=== PATIENT | male | born 1960 | race Caucasian/White ===

== ENCOUNTER 2018-01-05 18:26 | Inpatient (IN) | payer OTHER ==
[2018-01-05] MEDS ORDERED: HYDROmorphone 0.5 MG/0.5 ML SYRINGE IVP STA (18:41)
[2018-01-05] MEDS ORDERED: ONDANSETRON 4 MG/2 ML VIAL IVP STA (18:41)
[2018-01-05] MEDS ORDERED: SODIUM CHLORIDE 0.9% 1,000 ML IV STA (18:41)
[2018-01-05] MEDS ORDERED: RX INFO: IV CONTRAST WAS GIVEN 1 EACH MISC MISCELLANE PRN (18:41)
[2018-01-05] MEDS ORDERED: ACETAMINOPHEN TAB 500 MG TAB PO STA (18:43)
--- NOTE | 2018-01-05 18:48 | ED ---
Abdominal Pain HPI - General Chief Complaint: Abdominal Pain Stated Complaint: ABDOMINAL PAIN Time Seen by Provider: 01/05/18 18:33 Source: patient, RN notes reviewed, old records reviewed Mode of arrival: ambulatory Limitations: no limitations - History of Present Illness Initial Comments: This is a 57-year-old male presents emergency Department chief complaint of epigastric abdominal pain for the past 2 days. Patient ports is a history of IBS was started on Viberzi by his primary care doctor a few weeks ago. He reports he's not had much diarrhea since starting this medicine. States he's had nausea and has had episodes of vomiting. He had a fever last night of 103. Patient's had a fever and his been dosing Motrin. Patient last had Motrin a few hours ago. Patient has had no previous abdominal surgeries. He's had no previous colonoscopies. 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 Patient reports whenever he has a fever he feels like his heart skips a beat. He reports it's been going on for the past day. - Related Data Home Medications Medication Instructions Recorded Confirmed Citalopram Hydrobromide 10 mg PO HS 01/05/18 01/05/18 [Citalopram HBr] Citalopram Hydrobromide 20 mg PO DAILY 01/05/18 01/05/18 [Citalopram HBr] Eluxadoline [Viberzi] 75 mg PO BID 01/05/18 01/05/18 Ibuprofen [Motrin] 800 mg PO TID PRN 01/05/18 01/05/18 Allergies Allergy/AdvReac Type Severity Reaction Status Date / Time Penicillins Allergy Swelling Verified 01/05/18 18:47 Review of Systems ROS Statement: Those systems with pertinent positive or pertinent negative responses have been documented in the HPI. ROS Other: All systems not noted in ROS Statement are negative. Past Medical History Additional Past Medical History / Comment(s): IBS, skin cancer History of Any Multi-Drug Resistant Organisms: None Reported Additional Past Surgical History / Comment(s): Skin cancer removal Past Psychological History: Depression Smoking Status: Never smoker Past Alcohol Use History: None Reported Past Drug Use History: None Reported General Exam - General Exam Comments Initial Comments: This is a 57-year-old male. He appears somewhat pale. Limitations: no limitations General appearance: alert, in no apparent distress Head exam: Present: atraumatic, normocephalic, normal inspection Eye exam: Present: normal appearance, PERRL, EOMI. Absent: scleral icterus, conjunctival injection, periorbital swelling ENT exam: Present: normal exam, mucous membranes moist Neck exam: Present: normal inspection. Absent: tenderness, meningismus, lymphadenopathy Respiratory exam: Present: normal lung sounds bilaterally. Absent: respiratory distress, wheezes, rales, rhonchi, stridor Cardiovascular Exam: Present: regular rate, normal rhythm, normal heart sounds. Absent: systolic murmur, diastolic murmur, rubs, gallop, clicks GI/Abdominal exam: Present: soft, tenderness (Patient has significant epigastric tenderness.), normal bowel sounds. Absent: distended, guarding, rebound, rigid Extremities exam: Present: normal inspection, full ROM, normal capillary refill. Absent: tenderness, pedal edema, joint swelling, calf tenderness Back exam: Present: normal inspection Neurological exam: Present: alert, oriented X3, CN II-XII intact Psychiatric exam: Present: normal affect, normal mood Skin exam: Present: warm, dry, intact, normal color. Absent: rash Course Vital Signs 01/05/18 01/05/18 18:27 19:03 Temperature 99.7 F H Pulse Rate 64 108 H Respiratory 18 18 Rate Blood Pressure 118/60 96/55 O2 Sat by Pulse 96 94 L Oximetry Medical Decision Making - Medical Decision Making This patient is a 57-year-old male presents emergency Department chief complaint of epigastric abdominal pain for the past few days. Has history of IBS and has been on multiple medications to help stop dairy. He has been somewhat better but past 2 days. Patient states that he's had no known bloody diarrhea. He does arrive to emergency department with a low-grade fever 99.7. Patient reports that he does have fevers heart does occasionally skip a beat. He does have noted PVCs on his EKG. Patient's lab work is reviewed as follows, white blood cell count 12.7. RBCs 3.26. Hemoglobin 9.4. Platelets at 68. BUN 19 creatinine 1.72. AST is 15 ALT 22 negative cardiac workup. Amylase 116 lipase 451. He does have a stool occult positive. At this time to patient for likely GI bleed with Protonix. He also has evidence of mild pancreatitis. Patient will be remaining nothing by mouth. Also some signs of enteritis. He did have a single gallstone noted within the gallbladder on his CAT scan. He has no elevated transaminases. I discussed with Dr. Fonseca, suggested holding off an ultrasound at this time without evidence of any biliary obstruction on CAT scan. I discussed all the findings with the family. Patient agrees to admission for GI bleed pancreatitis and enteritis. Discussed with Dr. Fonseca we'll discuss this with the admitting physician. We will consult GI. - Lab Data Result diagrams: 01/05/18 18:48 01/05/18 18:48 Lab Results 01/05/18 01/05/18 01/05/18 Range/Units 18:48 18:48 18:48 WBC 12.7 H (3.8-10.6) k/uL RBC 3.26 L (4.30-5.90) m/uL Hgb 9.4 L (13.0-17.5) gm/dL Hct 28.7 L (39.0-53.0) % MCV 88.2 (80.0-100.0) fL MCH 28.7 (25.0-35.0) pg MCHC 32.6 (31.0-37.0) g/dL RDW 17.5 H (11.5-15.5) % Plt Count 68 L (150-450) k/uL Neutrophils % (Manual) 42 % Lymphocytes % (Manual) 15 % Monocytes % (Manual) 42 % Eosinophils % (Manual) 1 % Neutrophils # (Manual) 5.33 (1.3-7.7) k/uL Lymphocytes # (Manual) 1.91 (1.0-4.8) k/uL Monocytes # (Manual) 5.33 H (0-1.0) k/uL Eosinophils # (Manual) 0.13 (0-0.7) k/uL Nucleated RBCs 0 (0-0) /100 WBC Manual Slide Review Performed Poikilocytosis (manual Present Anisocytosis Slight Anisocytosis (manual) Present Ovalocytes Present PT 13.8 H (9.0-12.0) sec INR 1.5 H (<1.2) APTT 27.9 (22.0-30.0) sec Sodium 133 L (137-145) mmol/L Potassium 3.8 (3.5-5.1) mmol/L Chloride 96 L (98-107) mmol/L Carbon Dioxide 25 (22-30) mmol/L Anion Gap 12 mmol/L BUN 19 (9-20) mg/dL Creatinine 1.72 H (0.66-1.25) mg/dL Est GFR (MDRD) Af Amer 50 (>60 ml/min/1.73 sqM) Est GFR (MDRD) Non-Af 41 (>60 ml/min/1.73 sqM) Glucose 179 H (74-99) mg/dL Plasma Lactic Acid Tommie (0.7-2.0) mmol/L Calcium 7.9 L (8.4-10.2) mg/dL Total Bilirubin 0.9 (0.2-1.3) mg/dL AST 15 L (17-59) U/L ALT 22 (21-72) U/L Alkaline Phosphatase 81 (38-126) U/L Total Creatine Kinase (55-170) U/L CK-MB (CK-2) (0.0-2.4) ng/mL CK-MB (CK-2) Rel Index Troponin I (0.000-0.034) ng/mL Total Protein 5.4 L (6.3-8.2) g/dL Albumin 2.8 L (3.5-5.0) g/dL Amylase 116 H (30-110) U/L Lipase 451 H (23-300) U/L Stool Occult Blood (Negative) 01/05/18 01/05/18 01/05/18 Range/Units 18:48 18:48 19:46 WBC (3.8-10.6) k/uL RBC (4.30-5.90) m/uL Hgb (13.0-17.5) gm/dL Hct (39.0-53.0) % MCV (80.0-100.0) fL MCH (25.0-35.0) pg MCHC (31.0-37.0) g/dL RDW (11.5-15.5) % Plt Count (150-450) k/uL Neutrophils % (Manual) % Lymphocytes % (Manual) % Monocytes % (Manual) % Eosinophils % (Manual) % Neutrophils # (Manual) (1.3-7.7) k/uL Lymphocytes # (Manual) (1.0-4.8) k/uL Monocytes # (Manual) (0-1.0) k/uL Eosinophils # (Manual) (0-0.7) k/uL Nucleated RBCs (0-0) /100 WBC Manual Slide Review Poikilocytosis (manual Anisocytosis Anisocytosis (manual) Ovalocytes PT (9.0-12.0) sec INR (<1.2) APTT (22.0-30.0) sec Sodium (137-145) mmol/L Potassium (3.5-5.1) mmol/L Chloride (98-107) mmol/L Carbon Dioxide (22-30) mmol/L Anion Gap mmol/L BUN (9-20) mg/dL Creatinine (0.66-1.25) mg/dL Est GFR (MDRD) Af Amer (>60 ml/min/1.73 sqM) Est GFR (MDRD) Non-Af (>60 ml/min/1.73 sqM) Glucose (74-99) mg/dL Plasma Lactic Acid Tommie 1.2 (0.7-2.0) mmol/L Calcium (8.4-10.2) mg/dL Total Bilirubin (0.2-1.3) mg/dL AST (17-59) U/L ALT (21-72) U/L Alkaline Phosphatase (38-126) U/L Total Creatine Kinase 43 L (55-170) U/L CK-MB (CK-2) <0.2 (0.0-2.4) ng/mL CK-MB (CK-2) Rel Index Troponin I <0.012 (0.000-0.034) ng/mL Total Protein (6.3-8.2) g/dL Albumin (3.5-5.0) g/dL Amylase (30-110) U/L Lipase (23-300) U/L Stool Occult Blood Positive (Negative) 01/05/18 19:01 EKG shows sinus tachycardia with frequent PVCs. Ventricular rate of 113 beats were minute. DC interval 120 ms. QRS duration 82 ms. QT QTc is 334/458 ms. - Radiology Data Radiology results: report reviewed Chest x-ray was reviewed and negative for any acute cardiopulmonary process. Correlate for pancreatitis and mild in degree. Small bowel wall thickening felt to reflect nonspecific enteritis. Splenomegaly noted. There is also small gallstone noted. Small gallstone is seen within the gallbladder lumen.I can find hepatic lesion biliary tree is of normal caliber. Disposition Clinical Impression: Pancreatitis, PVC (premature ventricular contraction), GI bleed, Enteritis Disposition: ADMITTED IP TO THIS HOSP Condition: Stable Referrals: Nathan St MD [Primary Care Provider] - 1-2 days Time of Disposition: 20:18
[2018-01-05 19:06] LABS: Anisocytosis Slight; HCT 28.7 % (39.0-53.0); HGB 9.4 gm/dL (13.0-17.5); MCH 28.7 pg (25.0-35.0); MCHC 32.6 g/dL (31.0-37.0); MCV 88.2 fL (80.0-100.0); Mean Platelet Volume 11.5; RBC 3.26 m/uL (4.30-5.90); RDW 17.5 % (11.5-15.5); WBC 12.7 k/uL (3.8-10.6)
[2018-01-05 19:11] LABS: Platelet Count 68 k/uL (150-450)
[2018-01-05] MEDS ORDERED: SODIUM CHLORIDE 0.9% 1,000 ML IV SCH (19:15)
[2018-01-05 19:17] LABS: INR 1.5 (<1.2); Partial Thromboplastin Time 27.9 sec (22.0-30.0); Prothrombin Time 13.8 sec (9.0-12.0)
[2018-01-05 19:18] LABS: Creatine Kinase 43 U/L (55-170)
[2018-01-05 19:29] LABS: Albumin 2.8 g/dL (3.5-5.0); Calcium 7.9 mg/dL (8.4-10.2); Potassium 3.8 mmol/L (3.5-5.1); Total Bilirubin 0.9 mg/dL (0.2-1.3); Total Protein 5.4 g/dL (6.3-8.2)
[2018-01-05 19:30] LABS: Creatine Kinase MB <0.2 ng/mL (0.0-2.4); Troponin I <0.012 ng/mL (0.000-0.034)
--- NOTE | 2018-01-05 19:40 | CT ---
EXAMINATION TYPE: CT abdomen pelvis w con DATE OF EXAM: 01/05/2018 COMPARISON: NONE HISTORY: ABDOMINAL PAIN AND VOMITING X5 DAYS, HX OF IBS CT DLP: 1475.4 mGycm CONTRAST: CT scan of the abdomen and pelvis is performed without Oral Contrast and with IV Contrast, patient in jected with 100 mL of Omnipaque 300. FINDINGS: LUNG BASES-: No visible nodule. No infiltrate. LIVER/GB: Small gallstone is seen within the gallbladder lumen. No space occupying hepatic lesion. Biliary tree is of normal caliber. PANCREAS: Mild inflammatory change surrounds the pancreas. Correlate with amylase and lipase for mild pancreatitis. SPLEEN: There is evidence of splenomegaly measuring 14.7 cm craniocaudal dimension. ADRENALS: No nodule. No thickening. KIDNEYS/BLADDER: No hydronephrosis. No nephrolithiasis. No distinct renal mass. Urinary bladder g rossly unremarkable. BOWEL: Normal appendix. Moderate small bowel wall thickening is suspicious for nonspecific enteritis. Correlate clinically. No evidence for abscess or perforation. GENITAL ORGANS: No gross abnormality. LYMPH NODES: No greater than 1cm abdominal or pelvic lymph nodes are appreciated. AORTA: No significant abnormality. OSSEOUS STRUCTURES: No significant abnormality is seen. OTHER: No significant additional abnormality is seen. IMPRESSION: 1. Correlate for pancreatitis mild in degree. 2. Small bowel wall thickening felt to reflect nonspecific enteritis. 3. Splenomegaly. 4. Small gallstone.
--- NOTE | 2018-01-05 19:41 | XR ---
EXAMINATION TYPE: XR chest 2V DATE OF EXAM: 01/05/2018 COMPARISON: NONE HISTORY: Chest pain TECHNIQUE: Frontal and lateral views of the chest are obtained. FINDINGS: There is no focal air space opacity. No evidence for pneumothorax. No pleural effusion. The cardiac silhouette size is within normal limits. The osseous structures are grossly intact. IMPRESSION: 1. No acute cardiopulmonary process.
[2018-01-05 19:47] LABS: Anisocytosis (M) Present; Eosinophils # (M) 0.13 k/uL (0-0.7); Lymphocytes # (M) 1.91 k/uL (1.0-4.8); Neutrophils # (M) 5.33 k/uL (1.3-7.7); Neutrophils % (M) 42 %; Nucleated Red Blood Cells 0 /100 WBC (0-0); Ovalocytes Present; Poikilocytosis (M) Present; Total Cells Counted 100
[2018-01-05] MEDS ORDERED: SODIUM CHLORIDE 0.9% 1,000 ML IV ONE ×2 (19:50→20:48)
[2018-01-05] MEDS ORDERED: PANTOPRAZOLE 40 MG/10 ML VIAL IVP STA (19:51)
[2018-01-05 20:16] LABS: Amorphous Sediment,Urine Few /hpf; Appearance,Urine Cloudy (Clear); Bilirubin,Urine Negative (Negative); Blood,Urine Trace (Negative); Color,Urine Yellow; Glucose,Urine (UA) Negative (Negative); Ketones,Urine Negative (Negative); Leukocyte Esterase,Urine Negative (Negative); Mucus,Urine Moderate /hpf; Nitrite,Urine Negative (Negative); PH, Urine 5.5 (5.0-8.0); Protein,Urine 1+ (Negative); RBC,Urine 10 /hpf (0-5); Squamous Epithelial Cell,Urine 26 /hpf (0-4); WBC,Urine 52 /hpf (0-5)
[2018-01-05 20:17] LABS: Specific Gravity,Urine >1.050 (1.001-1.035)
[2018-01-05] MEDS ORDERED: IBUPROFEN 400 MG TAB PO PRN (20:21)
[2018-01-05] MEDS ORDERED: NALOXONE 0.4 MG/ML 1 ML VIAL IV PRN (20:21)
[2018-01-05] MEDS ORDERED: IBUPROFEN 600 MG TAB PO STA (20:34)
[2018-01-05] MEDS ORDERED: metroNIDAZOLE-NS PMX 500 MG in SALINE 1 100ML.BAG IVPB STA (20:37)
[2018-01-05] MEDS ORDERED: LEVOFLOXACIN 750MG-D5W PMX 750 MG in DEXTROSE/WATER 1 150ML.BAG IVPB STA (20:37)
[2018-01-05] MEDS: SODIUM CHLORIDE 0.9% 1,000 ML IV SCH (20:42)
[2018-01-05 22:21] LABS: Glucose,Whole Blood 162 mg/dL (75-99)
[2018-01-06] MEDS ORDERED: MEROPENEM 2 GM in SODIUM CHLORIDE 0.9% 100 ML IVPB SCH ×2
[2018-01-06] MEDS ORDERED: IPRATROPIUM-ALBUTEROL 3 ML NEB INHALATION PRN (00:29)
[2018-01-06 00:31] LABS: Anisocytosis Slight; HCT 22.6 % (39.0-53.0); Hypochromasia Slight; MCH 28.4 pg (25.0-35.0); MCHC 31.6 g/dL (31.0-37.0); MCV 89.9 fL (80.0-100.0); Mean Platelet Volume 12.9; RBC 2.51 m/uL (4.30-5.90); RDW 17.4 % (11.5-15.5)
[2018-01-06] MEDS: NOREPINEPHRIN 4 MG-0.9% NS PMX 4 MG/250 ML ML IV SCH ×2 (00:32→09:38)
[2018-01-06 00:42] LABS: HGB 7.1 gm/dL (13.0-17.5); Platelet Count 48 k/uL (150-450)
[2018-01-06] MEDS: MEROPENEM 1 GM in SODIUM CHLORIDE 0.9% 100 ML IVPB SCH ×4 (01:23→23:22)
[2018-01-06 01:31] LABS: Total Cells Counted 200
--- NOTE | 2018-01-06 02:52 | HP ---
HISTORY AND PHYSICAL DATE OF ADMISSION: 01/05/18 CHIEF COMPLAINTS: Abdominal pain and diarrhea. HISTORY OF PRESENT ILLNESS: This 57-year-old woman with past medical history of IBS, skin cancer, history of depression being followed by Dr. St in the outpatient setting apparently having abdominal pain. The patient also had diarrhea. Patient started on new medication Viberzi. The patient also had a fever and the patient came to [facility] and was admitted for further evaluation and treatment. Pancreatitis was suspected but however the patient also had hypotension. The blood pressure was found to be 96/55, and the patient transferred to ICU for further management. The patient also running fever also. There is no history of headache, loss of consciousness, seizures at this time. Patient had broad-spectrum IV antibiotics initiated. PAST MEDICAL HISTORY: History of IBS, history of skin cancer, history of depression. MEDICATIONS: Prior to admission include: 1. Celexa 10 mg q.h.s. 2. Motrin 800 mg t.i.d. p.r.n. 3. Viberzi 75 mg p.o. b.i.d. 4. Celexa 20 mg daily. ALLERGIES: PENICILLIN. FAMILY HISTORY: No history of heart disease or strokes. SOCIAL HISTORY: Previous history of smoker, no history of current smoking. No alcohol intake. REVIEW OF SYSTEMS: ENT: No diminished vision or hearing. CARDIOVASCULAR: No angina. Otherwise, as mentioned earlier. Respiratory: As mentioned earlier. GI no nausea or vomiting. : No dysuria. Nervous systems: No numbness, weakness. Allergy/Immunology: No asthma or hayfever. Musculoskeletal: As mentioned earlier. Hematology/Oncology: No anemia. Endocrine: As mentioned earlier. Constitutional: As mentioned earlier. Dermatology: Negative. Rheumatology: Negative. Psychiatric: as mentioned earlier. PHYSICAL EXAM: The patient is alert and oriented times three. Pulse is 98. Blood pressure 98/50, respiration 20, temperature 100 degrees, pulse ox 98% on 2 L. HEENT is conjunctivae normal. Oral mucosa moist. Neck is no jugular venous distention. No carotid bruit. No lymph node enlargement. Cardiovascular: S1, S2. No S3, no S4. RESPIRATORY: Breath sounds diminished in the bases. Scattered rhonchi and crackles. Expiratory wheezing also present. ABDOMEN: Soft. Mild diffuse tenderness present. Otherwise no guarding, no rigidity. No mass palpable. Legs: No edema and no swelling. No ascites. Central nervous system: Higher functions as mentioned earlier. Moves all four limbs. Lymphatics: No lymph nodes palpable in the neck, axillae or groin. Skin no ulcer, rashes or bleeding. LABS: At this time shows WBC 12.2, hemoglobin 9.4, sodium 133. ASSESSMENT: 1. Acute pancreatitis with possible sepsis. 2. Abdominal pain for evaluation. 3. Hyponatremia. 4. Increased creatinine with mild acute renal failure possibly secondary to prerenal factors. 5. Increased amylase and lipase. 6. Increased WBC. 7. Anemia. 8. History of irritable bowel syndrome. 9. Thrombocytopenia. 10.History of skin cancer. 11.History of depression. RECOMMENDATIONS AND DISCUSSION: In this 57-year-old gentleman who presented with multiple complex medical issues, we will monitor the patient closely, continue the current medication, continue symptomatic treatment. Otherwise, at this time I recommend broad-spectrum IV antibiotics. IV fluids. Levophed drip. Transfer to ICU. Consult Dr. Pearl and as well as Infectious Disease. Follow cultures. Guarded prognosis because of multiple complex medical issues. Further recommendations to follow. MMODL / IJN: [id number] /
[2018-01-06] MEDS: SODIUM CHLORIDE 0.9% 1,000 ML IV SCH ×3 (06:14→23:28)
[2018-01-06 07:37] LABS: Anisocytosis Slight; HCT 27.2 % (39.0-53.0); MCH 28.5 pg (25.0-35.0); MCHC 31.7 g/dL (31.0-37.0); MCV 89.8 fL (80.0-100.0); Mean Platelet Volume 11.8; Platelet Count 52 k/uL (150-450); Poikilocytosis Slight; RBC 3.03 m/uL (4.30-5.90); RDW 17.3 % (11.5-15.5); WBC 12.7 k/uL (3.8-10.6)
--- NOTE | 2018-01-06 07:40 | XR ---
EXAMINATION TYPE: XR chest 1V DATE OF EXAM: 01/06/2018 COMPARISON: 01/05/2018 HISTORY: 57-year-old male with pain TECHNIQUE: Single frontal view of the chest is obtained. FINDINGS: Heart upper limits of normal in size. Slightly low lung volumes with crowded vascular markings. Aorta and pulmonary vasculature within normal limits. No consolidation or pleural effusion. IMPRESSION: No acute process.
[2018-01-06 07:47] LABS: HGB 8.6 gm/dL (13.0-17.5)
[2018-01-06 07:49] LABS: ALT 19 U/L (21-72); AST 10 U/L (17-59); Albumin 2.2 g/dL (3.5-5.0); Alkaline Phosphatase 63 U/L (38-126); Anion Gap 10 mmol/L; Blood Urea Nitrogen 18 mg/dL (9-20); Calcium 7.2 mg/dL (8.4-10.2); Carbon Dioxide 27 mmol/L (22-30); Chloride 102 mmol/L (98-107); Glucose 131 mg/dL (74-99); Magnesium 1.9 mg/dL (1.6-2.3); Phosphorus 4.1 mg/dL (2.5-4.5); Potassium 3.8 mmol/L (3.5-5.1); Sodium 139 mmol/L (137-145); Total Bilirubin 0.6 mg/dL (0.2-1.3); Total Protein 4.7 g/dL (6.3-8.2)
[2018-01-06] MEDS: IPRATROPIUM-ALBUTEROL 3 ML NEB INHALATION SCH ×4 (07:56→19:46)
[2018-01-06 08:28] LABS: Band Neutrophils % 2 %; Neutrophils % (M) 47 %; Nucleated Red Blood Cells 1 /100 WBC (0-0)
[2018-01-06] MEDS: POTASSIUM CHLORIDE 10 MEQ in SODIUM CHLORIDE 0.9% 100 ML IVPB SCH ×2 (08:30→09:34)
[2018-01-06 08:32] LABS: Poikilocytosis (M) Present; Tear Drop Cells Present
[2018-01-06] MEDS ORDERED: POTASSIUM CHLORIDE 10 MEQ in SODIUM CHLORIDE 0.9% 100 ML IVPB SCH (09:00)
[2018-01-06] MEDS ORDERED: POTASSIUM CHLORIDE 10 MEQ in WATER FOR INJECTION 1 100ML.BAG IVPB SCH (09:00)
--- NOTE | 2018-01-06 09:33 | P.CONS ---
History of Present Illness - Reason for Consult Consult date: 01/06/18 Anemia and possible GI bleed Requesting physician: Kimmie Strong - History of Present Illness 57-year-old gentleman patient Dr. St with a past medical history of depression. 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 Over the last 6 months patient has been experiencing intermittent midepigastric pain nonbloody diarrhea and was recently placed on Viberzi without much improvement. He presents with multiple symptoms including fatigue fever weakness epigastric pain without reflux. T-max 102.0. No history of these types of symptoms. He has intentionally lost 15 pounds over the last 6 months secondary to diet changes. He is not vegetarian has reduced red meat and his diet mostly consuming fruits and vegetables chicken. Pain is centered in the midepigastric region does not necessarily worsened with meals. Denies overt bleeding such as hematemesis hematochezia or melena. Blood and urine cultures pending. Admission white count 12.7. Hemoglobin 9.4. MCV 88. Platelets 60,000. Hemoglobin earlier this morning was 7.1 received 1 unit of blood presently 8.6. Platelet 52,000. INR 1.5. BUN 19. Creatinine 1.7. Lipase 451. Amylase 116. LFTs unremarkable total bilirubin 0.9. AST 15. ALT 22. Alkaline phosphatase 81. Hemoccult stool positive. No history of EGD colonoscopy. No history of GI bleed or peptic ulcer disease. No history of pancreatitis. Takes an couple tablets of Advil as needed for arthritic musculoskeletal discomfort. No history of EtOH abuse or nicotine cigarette dependency. CT abdomen and pelvis small gallstone no occupying hepatic lesions. Biliary tree normal caliber. Mild infiltrate changes surrounding the pancreas. Moderate small bowel wall thickening suspicious for nonspecific enteritis. Review of Systems Constitutional: Denies fever, chills, sweats, weight gain, or loss. HEENT: Negative for migraines, blurred vision or loss, earaches, drainage, tinnitus, oral mucosal lesions, dysphagia, or odynophagia. Cardiac: Negative for chest pain, arrhythmias, or palpitation. Respiratory: Negative for shortness of breath, hemoptysis, cough, or sputum production. Gastrointestinal: See HPI for pertinent findings. Genitourinary: Negative for hematuria, urgency, frequency, polyuria, dysuria, or penile discharge. Musculoskeletal: Negative for muscle aches, swelling, arthritis, and arthralgias. Neurologic: Negative for stroke or TIA. Endocrine: Negative for thyroid problems. Skin: Negative for rash or itching. Psychiatric: History of depression. Past Medical History Additional Past Medical History / Comment(s): IBS, skin cancer History of Any Multi-Drug Resistant Organisms: None Reported Additional Past Surgical History / Comment(s): Skin cancer removal Past Anesthesia/Blood Transfusion Reactions: No Reported Reaction Past Psychological History: Depression Smoking Status: Former smoker Past Alcohol Use History: None Reported Past Drug Use History: None Reported Medications and Allergies Home Medications Medication Instructions Recorded Confirmed Type Citalopram Hydrobromide 10 mg PO HS 01/05/18 01/05/18 History [Citalopram HBr] Citalopram Hydrobromide 20 mg PO DAILY 01/05/18 01/05/18 History [Citalopram HBr] Eluxadoline [Viberzi] 75 mg PO BID 01/05/18 01/05/18 History Ibuprofen [Motrin] 800 mg PO TID PRN 01/05/18 01/05/18 History Allergies Allergy/AdvReac Type Severity Reaction Status Date / Time Penicillins Allergy Swelling Verified 01/05/18 18:47 Physical Exam Vitals: Vital Signs Temp Pulse Pulse Resp BP BP Pulse Ox 01/06/18 09:00 79 18 102/54 100 01/06/18 08:45 62 32 H 94/47 99 01/06/18 08:30 65 15 94/52 100 01/06/18 08:15 72 12 98/58 99 01/06/18 08:06 62 01/06/18 08:00 97.8 F 62 11 L 100/56 100 01/06/18 07:58 62 01/06/18 07:57 14 01/06/18 07:45 59 L 13 97/59 100 01/06/18 07:30 66 15 91/57 100 01/06/18 07:15 61 15 92/55 100 01/06/18 07:00 63 14 92/49 100 01/06/18 06:45 80 21 92/53 100 01/06/18 06:30 59 L 16 99/48 100 01/06/18 06:17 97.6 F 62 18 99/48 100 01/06/18 06:15 62 19 101/55 100 01/06/18 06:00 56 L 12 104/49 100 01/06/18 05:45 78 6 L 96/56 100 01/06/18 05:30 59 L 11 L 93/51 99 01/06/18 05:15 65 10 L 84/46 99 01/06/18 05:00 58 L 11 L 94/52 99 01/06/18 04:45 59 L 12 87/48 98 01/06/18 04:30 58 L 19 82/44 98 01/06/18 04:15 52 L 23 87/42 98 01/06/18 04:00 57 L 13 90/43 99 01/06/18 03:55 97.8 F 63 15 90/43 99 01/06/18 03:45 57 L 11 L 93/53 99 01/06/18 03:30 97.7 F 66 16 90/56 99 01/06/18 03:25 97.7 F 65 15 90/56 98 01/06/18 03:15 97.7 F 65 16 86/47 99 01/06/18 03:00 67 15 94/51 98 01/06/18 02:45 66 15 87/52 99 01/06/18 02:30 58 L 20 88/50 99 01/06/18 02:10 59 L 13 106/52 100 01/06/18 02:00 62 19 106/52 97 01/06/18 01:50 66 32 H 81/48 99 01/06/18 01:40 60 32 H 92/55 98 01/06/18 01:30 61 32 H 92/55 98 01/06/18 01:20 58 L 16 77/45 98 01/06/18 01:10 57 L 19 85/45 98 01/06/18 01:00 66 14 85/45 98 01/06/18 00:50 62 17 90/51 98 01/06/18 00:40 65 16 78/43 97 18 00:30 65 14 78/43 97 01/06/18 00:20 69 20 82/46 97 18 00:10 66 14 85/48 98 01/06/18 00:09 98.3 F 67 20 85/48 97 01/05/18 20:51 100/49 01/05/18 20:40 101.0 F H 98 20 98/55 96 01/05/18 20:16 96 01/05/18 20:14 102 F H 116 H 18 96/54 92 L 01/05/18 19:03 108 H 18 96/55 94 L 01/05/18 18:27 99.7 F H 64 18 118/60 96 Intake and Output 01/05/18 01/06/18 01/06/18 22:59 06:59 14:59 Intake Total 3000 1539.375 240 Output Total 860 275 Balance 3000 679.375 -35 Intake: IV 1080 240 Sodium Chloride 0.9% 1, 1080 240 000 ml @ 120 mls/hr IV . Q8H20M [facility] Rx#:[id number] Intake, IV Titration 3000 149.375 Amount Norepinephrin 4 mg-0.9% 149.375 Ns Pmx 4 mg In 250 ml @ Titrate IV .Q0M [facility] Rx#: [id number] Sodium Chloride 0.9% 1, 3000 000 ml @ 999 mls/hr IV . Q1H1M [facility] Rx#:[id number] Blood Product 310 Rc As-1 Unit 310 [id number] Output: Urine 860 275 Uretheral (Ellis) 200 Other: Voiding Method Indwelling Catheter Indwelling Catheter # Voids 0 Weight 99.54 kg 104.4 kg General appearance: The patient is alert, oriented, in no acute distress. HET: Head is normocephalic and atraumatic. Pupils are equal and reactive. Oropharynx is clear without lesions. Neck: Supple without lymphadenopathy. Trachea midline. Heart: S1 S2. Regular rate and rhythm. Lungs: No crackles or wheezes are heard. Abdomen: Soft, mild midepigastric tenderness, nondistended with bowel sounds. No peritoneal signs. No palpable organomegaly or masses. Extremities: Normal skin color and turgor. No cyanosis, rash, ulceration, clubbing, or edema. Radial and pedal pulses are 2/4 bilaterally. Neurological: No focal deficits. Strength and sensation are grossly intact. Results CBC & Chem 7: 01/06/18 07:17 01/06/18 07:17 Labs: Abnormal Lab Results - Last 24 Hours (Table) 01/05/18 01/05/18 01/05/18 Range/Units 18:48 18:48 18:48 WBC 12.7 H (3.8-10.6) k/uL RBC 3.26 L (4.30-5.90) m/uL Hgb 9.4 L (13.0-17.5) gm/dL Hct 28.7 L (39.0-53.0) % RDW 17.5 H (11.5-15.5) % Plt Count 68 L (150-450) k/uL Monocytes # (Manual) 5.33 H (0-1.0) k/uL PT 13.8 H (9.0-12.0) sec INR 1.5 H (<1.2) Sodium 133 L (137-145) mmol/L Chloride 96 L (98-107) mmol/L Creatinine 1.72 H (0.66-1.25) mg/dL Glucose 179 H (74-99) mg/dL POC Glucose (mg/dL) (75-99) mg/dL Calcium 7.9 L (8.4-10.2) mg/dL AST 15 L (17-59) U/L ALT (21-72) U/L Total Creatine Kinase (55-170) U/L Total Protein 5.4 L (6.3-8.2) g/dL Albumin 2.8 L (3.5-5.0) g/dL Amylase 116 H (30-110) U/L Lipase 451 H (23-300) U/L Ur Specific [place] (1.001-1.035) Urine Protein (Negative) Urine Blood (Negative) Urine RBC (0-5) /hpf Urine WBC (0-5) /hpf Ur Squamous Epith Cells (0-4) /hpf Amorphous Sediment (None) /hpf Urine Mucus (None) /hpf Crossmatch 01/05/18 01/05/18 01/05/18 Range/Units 18:48 18:48 20:02 WBC (3.8-10.6) k/uL RBC (4.30-5.90) m/uL Hgb (13.0-17.5) gm/dL Hct (39.0-53.0) % RDW (11.5-15.5) % Plt Count (150-450) k/uL Monocytes # (Manual) (0-1.0) k/uL PT (9.0-12.0) sec INR (<1.2) Sodium (137-145) mmol/L Chloride (98-107) mmol/L Creatinine (0.66-1.25) mg/dL Glucose (74-99) mg/dL POC Glucose (mg/dL) (75-99) mg/dL Calcium (8.4-10.2) mg/dL AST (17-59) U/L ALT (21-72) U/L Total Creatine Kinase 43 L (55-170) U/L Total Protein (6.3-8.2) g/dL Albumin (3.5-5.0) g/dL Amylase (30-110) U/L Lipase (23-300) U/L Ur Specific [place] >1.050 H (1.001-1.035) Urine Protein 1+ H (Negative) Urine Blood Trace H (Negative) Urine RBC 10 H (0-5) /hpf Urine WBC 52 H (0-5) /hpf Ur Squamous Epith Cells 26 H (0-4) /hpf Amorphous Sediment Few H (None) /hpf Urine Mucus Moderate H (None) /hpf Crossmatch See Detail 01/05/18 01/06/18 01/06/18 Range/Units 22:19 00:21 07:17 WBC 12.7 H (3.8-10.6) k/uL RBC 2.51 L 3.03 L (4.30-5.90) m/uL Hgb 7.1 L D 8.6 L D (13.0-17.5) gm/dL Hct 22.6 L 27.2 L (39.0-53.0) % RDW 17.4 H 17.3 H (11.5-15.5) % Plt Count 48 L* 52 L (150-450) k/uL Monocytes # (Manual) (0-1.0) k/uL PT (9.0-12.0) sec INR (<1.2) Sodium (137-145) mmol/L Chloride (98-107) mmol/L Creatinine (0.66-1.25) mg/dL Glucose (74-99) mg/dL POC Glucose (mg/dL) 162 H (75-99) mg/dL Calcium (8.4-10.2) mg/dL AST (17-59) U/L ALT (21-72) U/L Total Creatine Kinase (55-170) U/L Total Protein (6.3-8.2) g/dL Albumin (3.5-5.0) g/dL Amylase (30-110) U/L Lipase (23-300) U/L Ur Specific [place] (1.001-1.035) Urine Protein (Negative) Urine Blood (Negative) Urine RBC (0-5) /hpf Urine WBC (0-5) /hpf Ur Squamous Epith Cells (0-4) /hpf Amorphous Sediment (None) /hpf Urine Mucus (None) /hpf Crossmatch 01/06/18 Range/Units 07:17 WBC (3.8-10.6) k/uL RBC (4.30-5.90) m/uL Hgb (13.0-17.5) gm/dL Hct (39.0-53.0) % RDW (11.5-15.5) % Plt Count (150-450) k/uL Monocytes # (Manual) (0-1.0) k/uL PT (9.0-12.0) sec INR (<1.2) Sodium (137-145) mmol/L Chloride (98-107) mmol/L Creatinine (0.66-1.25) mg/dL Glucose 131 H (74-99) mg/dL POC Glucose (mg/dL) (75-99) mg/dL Calcium 7.2 L (8.4-10.2) mg/dL AST 10 L (17-59) U/L ALT 19 L (21-72) U/L Total Creatine Kinase (55-170) U/L Total Protein 4.7 L (6.3-8.2) g/dL Albumin 2.2 L (3.5-5.0) g/dL Amylase (30-110) U/L Lipase (23-300) U/L Ur Specific [place] (1.001-1.035) Urine Protein (Negative) Urine Blood (Negative) Urine RBC (0-5) /hpf Urine WBC (0-5) /hpf Ur Squamous Epith Cells (0-4) /hpf Amorphous Sediment (None) /hpf Urine Mucus (None) /hpf Crossmatch Assessment and Plan (1) Epigastric abdominal pain Narrative/Plan: 57-year-old male presents with six-month history of nonbloody diarrhea epigastric abdominal pain suspected GI bleed symptomatic acute blood loss anemia thrombocytopenia with positive stool guaiac and fever. Mild elevation of lipase with mild inflammatory change during the pancreas consistent with acute pancreatitis of unclear etiology patient vehemently denies history of EtOH abuse. Current Visit: Yes Status: Acute Code(s): R10.13 - EPIGASTRIC PAIN SNOMED Code(s): 82147547 (2) Acute blood loss anemia Current Visit: Yes Status: Acute Code(s): D62 - ACUTE POSTHEMORRHAGIC ANEMIA SNOMED Code(s): 005857962 (3) Thrombocytopenia Current Visit: Yes Status: Acute Code(s): D69.6 - THROMBOCYTOPENIA, UNSPECIFIED SNOMED Code(s): 670280531 (4) Diarrhea Current Visit: Yes Status: Acute Code(s): R19.7 - DIARRHEA, UNSPECIFIED SNOMED Code(s): 67772960 (5) Fever Current Visit: Yes Status: Acute Code(s): R50.9 - FEVER, UNSPECIFIED SNOMED Code(s): 091838743 (6) Stool guaiac positive Current Visit: Yes Status: Acute Code(s): R19.5 - OTHER FECAL ABNORMALITIES SNOMED Code(s): 27070692 (7) Acute pancreatitis Narrative/Plan: Mild elevation of lipase with mild inflammatory changes surrounding the pancreas per CT. Etiology of pancreatitis unclear no history of EtOH abuse possible autoimmune. Current Visit: Yes Status: Acute Code(s): K85.90 - ACUTE PANCREATITIS WITHOUT NECROSIS OR INFECTION, UNSP SNOMED Code(s): 090606662 (8) Coagulopathy Current Visit: Yes Status: Acute Code(s): D68.9 - COAGULATION DEFECT, UNSPECIFIED SNOMED Code(s): 30964768 Plan: 1. EGD colonoscopy recommended and scheduled tomorrow possible small bowel capsule endoscopy contingent on endoscopic exam findings. 2. Hematology consultation. Iron indices. 3. Blood and platelet transfusion as indicated per hematology recommendations. 4. Protonix 40 mg IV daily. 5. CBC monitoring. 6. Liquid diet. 7. Repeat PT/INR in a.m. Will obtain triglyceride level and CA-19-9 marker. SISSY screen IgG 1-4 subclass to evaluate for autoimmune pancreatitis. 8. IV antibiotics. Infectious disease consultation. 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 The patient has indicated understanding and acceptance of the risks and procedures discussed. Thank you for this kind referral and the opportunity to participate in the care of your patient. This consultation was discussed with Dr. Stinson. The impression and plan of care have been directed as dictated.
[2018-01-06] MEDS: MAGNESIUM SULFATE-D5W PMX 1 GM in DEXTROSE/WATER 1 100ML.BAG IVPB SCH ×2 (09:35→11:05)
[2018-01-06 10:30] LABS: Monocytes # (M) 5.33 k/uL (0-1.0)
[2018-01-06 10:53] LABS: Band Neutrophils % 3 %; Lymphocytes # (M) 1.14 k/uL (1.0-4.8); Neutrophils % (M) 43 %; Nucleated Red Blood Cells 0 /100 WBC (0-0); Promyelocytes # (M) 0.13 k/uL (0); Promyelocytes % 1 %; Total Cells Counted 200
[2018-01-06 10:55] LABS: Blast Cells # (M) 0.38 k/uL (0); Monocytes # (M) 5.46 k/uL (0-1.0)
[2018-01-06 10:56] LABS: Large Platelets Present; Ovalocytes Present; Polychromasia Present
[2018-01-06] MEDS ORDERED: SODIUM CHLORIDE 0.9% 1,000 ML IV ONE (11:04)
[2018-01-06 11:19] LABS: Urine Alcohol Negative (Negative); Urine Barbiturate Positive (Negative); Urine Cocaine Negative (Negative); Urine Methadone Negative (Negative); Urine Opiates Positive (Negative); Urine Phencyclidine Negative (Negative)
[2018-01-06 12:36] LABS: Anisocytosis Slight; HCT 26.5 % (39.0-53.0); Hypochromasia Slight; MCH 27.9 pg (25.0-35.0); MCHC 30.1 g/dL (31.0-37.0); MCV 92.8 fL (80.0-100.0); Mean Platelet Volume 11.2; RBC 2.86 m/uL (4.30-5.90); RDW 17.4 % (11.5-15.5)
[2018-01-06 12:40] LABS: Platelet Count 42 k/uL (150-450)
[2018-01-06 13:16] LABS: Metamyelocytes % 1 %; Myelocytes % 1 %
--- NOTE | 2018-01-06 13:57 | P.CNPUL ---
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 Patient was recently seen by his primary care physician with complaints of epigastric discomfort, and intermittent episodes of diarrhea. Patient was placed on viberzi, without much improvement. Patient has been losing weight but according to him he has been losing the weight on purpose and following a diet. Upon presentation to the ER , patient was noted to be febrile with a temp of 103. Patient is also noted to have anemia, and at one point he required fluid boluses, placed on small dose of levo fed for low blood pressure, and he is presently on 4 mcg/m. Received a unit of packed RBCs, seen by gastroenterology on consultation, and he is scheduled to undergo EGD and colonoscopy tomorrow. In addition to anemia with a hemoglobin of 7.1 on presentation, patient was noted to have thrombocytopenia with low platelets count of 48,000, bacteriuria and pyuria, elevated pancreatic enzymes including elevated amylase and lipase. Lactic acid was 1.2 initial renal profile showed a BUN of 19 and creatinine of 1.72, however follow-up creatinine today is 1.10. Considering the hypotension, the fever, the anemia, and elevated pancreatic enzymes, and positive Hemoccult stools, patient was admitted to the ICU, and I was asked to see him on consultation. CT of the abdomen and pelvis showed mild pancreatitis, some thickening of the bowel wall consistent with enteritis, and there was evidence of splenomegaly. Small gallstones were noted x-ray of the chest was negative. Patient denies any headaches, no blurred vision no dizziness, no shortness of breath, no chest pain , most of his symptoms are mostly GI as noted above. He describes some weight loss, fever, nausea vomiting and intermittent episodes of diarrhea. No aches and pains, no other significant symptoms besides sweats mentioned already. Review of Systems 14 point review of systems were obtained, please refer to pertinent positives as noted in HPI otherwise remaining systems are negative Past Medical History Additional Past Medical History / Comment(s): IBS, skin cancer History of Any Multi-Drug Resistant Organisms: None Reported Additional Past Surgical History / Comment(s): Skin cancer removal Past Anesthesia/Blood Transfusion Reactions: No Reported Reaction Past Psychological History: Depression Smoking Status: Former smoker Past Alcohol Use History: None Reported Past Drug Use History: None Reported Medications and Allergies Home Medications Medication Instructions Recorded Confirmed Type Citalopram Hydrobromide 10 mg PO HS 01/05/18 01/05/18 History [Citalopram HBr] Citalopram Hydrobromide 20 mg PO DAILY 01/05/18 01/05/18 History [Citalopram HBr] Eluxadoline [Viberzi] 75 mg PO BID 01/05/18 01/05/18 History Ibuprofen [Motrin] 800 mg PO TID PRN 01/05/18 01/05/18 History Allergies Allergy/AdvReac Type Severity Reaction Status Date / Time Penicillins Allergy Swelling Verified 01/05/18 18:47 Physical Exam Vitals: Vital Signs Temp Pulse Pulse Resp BP BP Pulse Ox 01/06/18 12:15 69 16 103/56 100 01/06/18 12:00 97.9 F 75 11 L 96/58 99 01/06/18 11:45 71 14 93/54 98 01/06/18 11:30 70 18 92/59 100 01/06/18 11:23 16 01/06/18 11:15 67 16 100/55 99 01/06/18 11:00 95 18 111/58 98 01/06/18 10:45 66 10 L 101/57 99 01/06/18 10:30 65 11 L 93/56 100 01/06/18 10:15 67 17 98/52 99 01/06/18 10:00 74 15 104/52 99 01/06/18 09:45 66 13 99/57 100 01/06/18 09:30 83 13 106/59 100 01/06/18 09:15 62 15 110/70 100 01/06/18 09:00 79 18 102/54 100 01/06/18 08:45 62 32 H 94/47 99 01/06/18 08:30 65 15 94/52 100 01/06/18 08:15 72 12 98/58 99 01/06/18 08:06 62 01/06/18 08:00 97.8 F 62 11 L 100/56 100 01/06/18 07:58 62 01/06/18 07:57 14 01/06/18 07:45 59 L 13 97/59 100 01/06/18 07:30 66 15 91/57 100 01/06/18 07:15 61 15 92/55 100 01/06/18 07:00 63 14 92/49 100 01/06/18 06:45 80 21 92/53 100 01/06/18 06:30 59 L 16 99/48 100 01/06/18 06:17 97.6 F 62 18 99/48 100 01/06/18 06:15 62 19 101/55 100 01/06/18 06:00 56 L 12 104/49 100 01/06/18 05:45 78 6 L 96/56 100 01/06/18 05:30 59 L 11 L 93/51 99 01/06/18 05:15 65 10 L 84/46 99 01/06/18 05:00 58 L 11 L 94/52 99 01/06/18 04:45 59 L 12 87/48 98 01/06/18 04:30 58 L 19 82/44 98 01/06/18 04:15 52 L 23 87/42 98 01/06/18 04:00 57 L 13 90/43 99 01/06/18 03:55 97.8 F 63 15 90/43 99 01/06/18 03:45 57 L 11 L 93/53 99 01/06/18 03:30 97.7 F 66 16 90/56 99 01/06/18 03:25 97.7 F 65 15 90/56 98 01/06/18 03:15 97.7 F 65 16 86/47 99 01/06/18 03:00 67 15 94/51 98 01/06/18 02:45 66 15 87/52 99 01/06/18 02:30 58 L 20 88/50 99 01/06/18 02:10 59 L 13 106/52 100 01/06/18 02:00 62 19 106/52 97 01/06/18 01:50 66 32 H 81/48 99 01/06/18 01:40 60 32 H 92/55 98 01/06/18 01:30 61 32 H 92/55 98 01/06/18 01:20 58 L 16 77/45 98 01/06/18 01:10 57 L 19 85/45 98 01/06/18 01:00 66 14 85/45 98 01/06/18 00:50 62 17 90/51 98 01/06/18 00:40 65 16 78/43 97 01/06/18 00:30 65 14 78/43 97 01/06/18 00:20 69 20 82/46 97 01/06/18 00:10 66 14 85/48 98 01/06/18 00:09 98.3 F 67 20 85/48 97 01/05/18 20:51 100/49 01/05/18 20:40 101.0 F H 98 20 98/55 96 01/05/18 20:16 96 01/05/18 20:14 102 F H 116 H 18 96/54 92 L 01/05/18 19:03 108 H 18 96/55 94 L 01/05/18 18:27 99.7 F H 64 18 118/60 96 Intake and Output 01/05/18 01/06/18 01/06/18 22:59 06:59 14:59 Intake Total 3000 1539.375 709.875 Output Total 860 675 Balance 3000 679.375 34.875 Intake: IV 1080 600 Sodium Chloride 0.9% 1, 1080 600 000 ml @ 120 mls/hr IV . Q8H20M [facility] Rx#:[id number] Intake, IV Titration 3000 149.375 109.875 Amount Norepinephrin 4 mg-0.9% 149.375 109.875 Ns Pmx 4 mg In 250 ml @ Titrate IV .Q0M [facility] Rx#: [id number] Sodium Chloride 0.9% 1, 3000 000 ml @ 999 mls/hr IV . Q1H1M [facility] Rx#:[id number] Blood Product 310 Rc As-1 Unit 310 [id number] Output: Urine 860 675 Uretheral (Ellis) 200 Other: Voiding Method Indwelling Catheter Indwelling Catheter # Voids 0 Weight 99.54 kg 104.4 kg 104.4 kg Patient Weight 01/07/18 06:59 Weight 104.4 kg General appearance: Physical examination revealed a 57-year-old in no distress. Head: Atraumatic, normocephalic. HEENT: Moist mucous membranes, no neck masses, no JVD, no stridor, no cervical lymphadenopathy, no thyromegaly.. Neck: Supple, no neck masses, no lymphadenopathy. Heart: Normal S1 and S2, no S3 gallop. Lungs: Symmetrical chest expansion, clear bilaterally no crackles or rhonchi or wheezes Abdomen: Flat, soft, nontender, no megaly, no rebound, positive bowel sounds. Extremities: Normal skin color and turgor. No cyanosis, rash, ulceration, clubbing, or edema. Radial and pedal pulses are 2/4 bilaterally. Neurological: Alert and oriented 3, no gross focal deficit. Psychiatric: Normal mood and affect, sound judgment and insight. Results - Laboratory Findings CBC and BMP: 01/06/18 12:24 01/06/18 07:17 PT/INR, D-dimer PT 13.8 sec (9.0-12.0) H 01/05/18 18:48 INR 1.5 (<1.2) H 01/05/18 18:48 Abnormal lab findings: Abnormal Labs 01/05/18 01/05/18 01/05/18 18:48 18:48 18:48 WBC 12.7 H RBC 3.26 L Hgb 9.4 L Hct 28.7 L MCHC RDW 17.5 H Plt Count 68 L Lymphocytes # (Manual) Monocytes # (Manual) 5.33 H Metamyelocytes # (Man) Myelocytes # (Manual) Promyelocytes # (Man) Blast Cells # (Man) Nucleated RBCs PT 13.8 H INR 1.5 H Sodium 133 L Chloride 96 L Creatinine 1.72 H Glucose 179 H POC Glucose (mg/dL) Calcium 7.9 L AST 15 L ALT Total Creatine Kinase Total Protein 5.4 L Albumin 2.8 L Amylase 116 H Lipase 451 H Ur Specific [place] Urine Protein Urine Blood Urine RBC Urine WBC Ur Squamous Epith Cells Amorphous Sediment Urine Mucus Crossmatch 01/05/18 01/05/18 01/05/18 18:48 18:48 20:02 WBC RBC Hgb Hct MCHC RDW Plt Count Lymphocytes # (Manual) Monocytes # (Manual) Metamyelocytes # (Man) Myelocytes # (Manual) Promyelocytes # (Man) Blast Cells # (Man) Nucleated RBCs PT INR Sodium Chloride Creatinine Glucose POC Glucose (mg/dL) Calcium AST ALT Total Creatine Kinase 43 L Total Protein Albumin Amylase Lipase Ur Specific [place] >1.050 H Urine Protein 1+ H Urine Blood Trace H Urine RBC 10 H Urine WBC 52 H Ur Squamous Epith Cells 26 H Amorphous Sediment Few H Urine Mucus Moderate H Crossmatch See Detail 01/05/18 01/06/18 01/06/18 22:19 00:21 07:17 WBC 12.7 H RBC 2.51 L 3.03 L Hgb 7.1 L D 8.6 L D Hct 22.6 L 27.2 L MCHC RDW 17.4 H 17.3 H Plt Count 48 L* 52 L Lymphocytes # (Manual) 0.80 L Monocytes # (Manual) 4.00 H 5.46 H Metamyelocytes # (Man) 0.10 H Myelocytes # (Manual) 0.10 H Promyelocytes # (Man) 0.13 H Blast Cells # (Man) 0.50 H 0.38 H Nucleated RBCs 1 H PT INR Sodium Chloride Creatinine Glucose POC Glucose (mg/dL) 162 H Calcium AST ALT Total Creatine Kinase Total Protein Albumin Amylase Lipase Ur Specific [place] Urine Protein Urine Blood Urine RBC Urine WBC Ur Squamous Epith Cells Amorphous Sediment Urine Mucus Crossmatch 01/06/18 01/06/18 07:17 12:24 WBC RBC 2.86 L Hgb 8.0 L Hct 26.5 L MCHC 30.1 L RDW 17.4 H Plt Count 42 L* Lymphocytes # (Manual) Monocytes # (Manual) Metamyelocytes # (Man) Myelocytes # (Manual) Promyelocytes # (Man) Blast Cells # (Man) Nucleated RBCs PT INR Sodium Chloride Creatinine Glucose 131 H POC Glucose (mg/dL) Calcium 7.2 L AST 10 L ALT 19 L Total Creatine Kinase Total Protein 4.7 L Albumin 2.2 L Amylase Lipase Ur Specific [place] Urine Protein Urine Blood Urine RBC Urine WBC Ur Squamous Epith Cells Amorphous Sediment Urine Mucus Crossmatch - Diagnostic Findings Chest x-ray: image reviewed Additional studies: CT of the abdomen and pelvis was also reviewed and agree with the reading as per radiology. Assessment and Plan Assessment: Impression: 1 acute sepsis and septic shock, likely sources is either abdominal source/ colitis or related to urinary tract infection as noted by his abnormal urinalysis. 2 possible hypovolemic shock secondary to pancreatitis however this is felt to be less likely. 3 acute thrombocytopenia secondary to sepsis 4 acute anemia secondary to GI blood losses, most likely upper GI in nature. Patient is scheduled to undergo EGD and colonoscopy. 5 acute pancreatitis likely gallstones related. Patient does not drink any alcohol, and no history of hypertriglyceridemia. 6 history of irritable bowel syndrome and recurrent episodes of colitis. Possibility of inflammatory colitis is to be considered. 7 weight loss, most likely related to his chronic colitis. Recommendation: present treatment plan including antibiotics, fluids, Protonix , pressors since the patient did not improve much with fluid boluses. Continue IV fluids, keep patient nothing by mouth for now, will have EGD and colonoscopy in a.m. We'll continue to monitor closely in the ICU. Monitor serial hemoglobin and hematocrit, and transfuse accordingly if hemoglobin below 7. Critical care time is 45 minutes., Time with Patient: Greater than 30
[2018-01-06 14:17] LABS: Band Neutrophils % 2 %; Myelocytes # (M) 0.06 k/uL (0); Myelocytes % 1 %; Neutrophils % (M) 53 %; Nucleated Red Blood Cells 2 /100 WBC (0-0); Total Cells Counted 200
[2018-01-06 14:18] LABS: Lymphocytes # (M) 0.59 k/uL (1.0-4.8); Monocytes # (M) 1.83 k/uL (0-1.0); WBC 5.9 k/uL (3.8-10.6)
[2018-01-06 14:20] LABS: Poikilocytosis (M) Present
--- NOTE | 2018-01-06 14:47 | PN ---
PROGRESS NOTE DATE OF SERVICE: 01/06/2018 This 57-year-old gentleman was admitted with acute pancreatitis with diarrhea and also hypotension is being closely monitored at this time. The patient received multiple IV fluid boluses. The patient was also seen multiple consultants including Infectious Disease, Hematology Oncology and as well as Critical Care. PAST MEDICAL HISTORY: Reviewed. REVIEW OF SYSTEMS: CARDIOVASCULAR: No angina. RESPIRATORY: As mentioned earlier. GI: As mentioned. : No dysuria. NERVOUS SYSTEM: No numbness or weakness. CURRENT MEDICATIONS: 1. Tylenol p.r.n. 2. DuoNeb q.i.d. and p.r.n. 3. Motrin 400 mg q.6h p.r.n. 4. Meropenem 1 g IV q.8h. 5. Narcan. 6. Nor P drip. 7. GoLYTELY. PHYSICAL EXAM: Patient is alert, oriented x3. Pulse 84, blood pressure 100/52, respiration 30, temperature normal, pulse ox 100% on room air. HEENT: Conjunctivae normal. Oral mucosa moist. NECK: No jugular venous distention. No carotid bruit. No lymph node enlargement. CARDIOVASCULAR: S1, S2. No S3, no S4. RESPIRATORY: Breath sounds diminished in the bases. A few scattered rhonchi and crackles. ABDOMEN: Soft. Mild diffuse discomfort and distention present. No guarding. No rigidity. No mass palpable. LEGS: No edema, no swelling. NERVOUS SYSTEM: No focal deficits. LABS: WBC 6, hemoglobin is 8, platelets are 42, and albumin is 2.2. ASSESSMENT: 1. Acute pancreatitis with possible sepsis and severe sepsis and hypotension and septic shock. 2. Abdominal pain for evaluation. 3. Anemia rule out gastrointestinal bleed. 4. Hyponatremia. 5. Increased creatinine with mild acute renal failure, possible secondary to prerenal factors. 6. Increased amylase and lipase. 7. Increased WBC. 8. Anemia. 9. Irritable bowel syndrome. 10.Thrombocytopenia. 11.History of skin cancer. 12.History of depression. RECOMMENDATIONS AND DISCUSSION: I recommend to continue current management and symptomatic treatment. Otherwise, we will continue the pressor support. Monitor blood pressure closely. Continue to cover with broad-spectrum IV antibiotics. Follow the cultures repeat amylase lipase. Closely follow with Gastroenterology, who is planning endoscopy tomorrow. Guarded prognosis because of multiple complex medical issues and further recommendations to follow. MMODL / IJN: [id number] /
--- NOTE | 2018-01-06 14:57 | US ---
EXAMINATION TYPE: US gallbladder DATE OF EXAM: 01/06/2018 COMPARISON: CT abd/pelvis 01/05/2018 CLINICAL HISTORY: 57-year-old male pancreatitis. TECHNIQUE: Multiple sonographic images of the right upper quadrant are obtained. FINDINGS: Liver Length: 23.0 cm Gallbladder Wall: 0.1 cm CBD : 6.5 mm Right Kidney: 11.6 x 4.1 x 7.1 cm Pancreas: Heterogeneous appearing. No peripancreatic fluid collection identified. Limited visualizati on of the pancreatic tail secondary to shadowing from bowel gas. Liver: Enlarged but with overall homogeneous echotexture. No focal lesion seen. Gallbladder: No abnormal gallbladder distention, wall thickening, or pericholecystic fluid. There is a shadowing calculus measuring 2.2 cm within. Nodular mural base area also present along the gallblad fer wall, image 36 of 54 is described to be a polyp by the low pressure boiler operator. There is some comet tail riki fact which can be seen in the setting of adenomyomatosis. Evidence for sonographic Mann's sign: no CBD: Borderline dilated. Right Kidney: No hydronephrosis. IMPRESSION: 1. Heterogeneous appearance to the pancreas in keeping with the patient's acute pancreatitis. 2. Hepatomegaly. Known splenomegaly seen on CT. 3. Borderline dilated bile duct. Correlate with alkaline phosphatase and bilirubin levels to exclude early biliary obstruction. 4. Cholelithiasis. No evidence for acute cholecystitis. The low pressure boiler operator describes a gallbladder wall polyp; however, this is not well shown on the provided images. Three-month follow-up gallbladder ultr asound recommended to reassess.
[2018-01-06] MEDS ORDERED: PEG 3350-NA SULF,BICARB,CL/KCL 4,000 ML BOTTLE PO ONE (16:00)
[2018-01-06 17:31] LABS: Cancer Antigen 19-9 66.2 U/mL (0.0-34.9)
[2018-01-06 17:41] LABS: Iron Saturation 38.92 (15.00-50.00)
--- NOTE | 2018-01-06 20:23 | CONS ---
CONSULTATION DATE OF SERVICE: 01/06/2018. REASON FOR CONSULTATION: Sepsis. HISTORY OF PRESENT ILLNESS: The patient is a 57-year-old male presenting to the ER at [facility] last evening with chief complaints of epigastric abdominal pain for about 2 days prior to presentation to the hospital. The pain is described to be mostly in the epigastric area, more of a sharp to dull aching pain with intensity that progressively got worse over the last 2 days to be almost 10/10. The patient did have associated nausea and did have an episode of vomiting. Initially had some loose stool as well. The patient did not recall if she has similar episodes in the past with worsening abdominal pain. He came to the [facility] ER where the patient was evaluated by the ER physician. The patient did have a CT of the abdomen and pelvis which just showed mild pancreatitis and enteritis. Subsequent blood work did show elevated lipase of 451. The patient also had elevated white count of 12.7. The CT also was suggestive of a gallstone, but no gallbladder wall thickening. An ultrasound confirmed the findings of gallstones, but no gallbladder wall thickening or dilated CBD. The patient was noticed to have a fever of 103 Fahrenheit and was also hypotensive requiring fluid boluses and low-dose pressor. He was subsequent admitted to the ICU. He was started on broad antibiotic in the form of meropenem. Infectious Disease was consulted for further recommendation regarding antibiotic therapy. The patient also noticed to have a hemoglobin of 7.74. The patient is currently being evaluated by GI Services with a plan for EGD and colonoscopy tomorrow. He did have elevated creatinine of 1.72 on admission, it has subsequently improved with multiple fluid bolused that the patient has received. REVIEW OF SYSTEMS: Constitutional: Positive for weakness along with fever. Eyes: No complaint. ENT: No complaint. Respiratory: No complaint. Cardiovascular: No complaint. Genitourinary: No complaint. Gastrointestinal: As per HPI. Musculoskeletal: No complaint. Psychological: No complaint. Endocrine: No complaint. Neurological: No complaint. PAST MEDICAL HISTORY: Significant for irritable bowel syndrome, history of skin cancer, also history of depression. PAST SURGICAL HISTORY: Skin cancer removal. No other major surgeries. SOCIAL HISTORY: Remote history of smoking. No drinking or drug use. FAMILY HISTORY: Noncontributory. ALLERGIES: PENICILLIN with a rash. No history of anaphylaxis. MEDICATIONS: The patient is currently on Tylenol, DuoNeb, Dilaudid, Motrin, meropenem 1 g every 8, Levophed, Protonix, Tylenol. PHYSICAL EXAMINATION: Blood pressure is 114/57, with a pulse of 89, temperature is 97.9, T-max is 102 degrees Fahrenheit. He is 99% on 2 L nasal cannula. GENERAL DESCRIPTION: Middle-aged male lying in bed in no distress. No tachypnea or accessory muscle of respiration use. HEENT: Shows pallor, no scleral icterus. Oral mucosa is moist without erythema. No thrush. NECK: JVD not present. No thyromegaly. LUNGS: Unlabored breathing, clear to auscultation. No wheeze or crackle. HEART: S1, S2. Regular rate and rhythm. ABDOMEN: Soft. He is tender in the epigastric area, mild. No organomegaly. No tenderness in right upper quadrant. EXTREMITIES: No edema of the feet. SKIN: Examination, no rash. No mass palpable. NEUROLOGIC: The patient is awake, alert, oriented x3. Mood and affect normal. LABS: Hemoglobin 8, white count 12.7 with a BUN of 18, creatinine 1.1. Electrolytes have been normal. Lipase is 451. Amylase is 116. Urine has been trace blood, 2 WBC. Stool for occult blood was positive. Urine was positive for barbiturates and opiates. CT of abdomen and pelvis as mentioned above. DIAGNOSTIC IMPRESSION: Patient with sepsis. The patient did have fever of 102 degrees Fahrenheit. The patient was hypotensive requiring multiple fluid boluses, currently on a low dose form of Levophed. The patient also had an elevated white count meeting criteria for SIRS with the main presentation being epigastric abdominal pain with elevated amylase and lipase and CT suggestive of pancreatitis, likely a gallstone pancreatitis and there was evidence of gallstones but no evidence of cholecystitis. The likely organism to cover will be the enteric gram-negative venessa, both aerobes and anaerobes. In view off the sepsis and shock requiring pressor support we will need to treat aggressively with IV antibiotic therapy to prevent any worsening of his clinical condition and septic shock. PLAN: 1. Meropenem 1 g IV piggyback every 8 hours for broader coverage for the enteric pathogen with possible abscess. 2. Blood culture has been obtained and will be monitored closely. 3. Aggressive IV fluid and pressor support per the radiotelegraphist. 4. Depending upon his clinical response and other cultures, we will adjust the medication further if needed. Family was present at bedside, their questions were answered. PARVEZ / IJN: [id number] / MTDAdam
[2018-01-06] MEDS: HYDROmorphone 0.5 MG/0.5 ML SYRINGE IVP PRN (22:22)
[2018-01-06 22:53] LABS: Anion Gap 9 mmol/L; Blood Urea Nitrogen 12 mg/dL (9-20); Calcium 7.4 mg/dL (8.4-10.2); Carbon Dioxide 25 mmol/L (22-30); Chloride 103 mmol/L (98-107); Glucose 192 mg/dL (74-99); Magnesium 2.4 mg/dL (1.6-2.3); Sodium 137 mmol/L (137-145)
[2018-01-07] MEDS: HYDROmorphone 0.5 MG/0.5 ML SYRINGE IVP PRN ×5 (00:45→20:38)
--- NOTE | 2018-01-07 00:57 | P.CONS ---
History of Present Illness - Reason for Consult Consult date: 01/06/18 Thrombocytopenia Requesting physician: Linda Hirsch - Chief Complaint Fever - History of Present Illness Mr. Epps is a pleasant 57 year old male patient who initially presented to [facility] with complaints of abdominal pain. Over the past 5 to 6 months patient has been experiencing intermittent mid-epigastric pain. 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 He has noticed he has been experiencing increasing fatigue, weakness, progressive epigastric pain and recently a fever, with T- max 102.0. 15lb weight loss after changing diet to control his known history of IBS. Only other documented history is Depression. He was recently started on Viberzi for this reason. He denies any visible bleeding. When he presented he was found to have an increased WBC 12.7, Low Hemoglobin 7.1, and low platelet count of 60. He denies ETOH or TObacco use. CT abdomen and pelvis small gallstone Mild infiltrate changes surrounding the pancreas. Moderate small bowel wall thickening suspicious for nonspecific enteritis. Hematology has been consulted related to his abnormal blood counts and concern of blasts in peripheral blood. His stool OB was Positive. He denies any history of problems with his blood in past Review of Systems A 14 point review of systems assessed and completed all negative except HPI Constitutional: Reports fatigue, Reports fever, Reports weight loss Gastrointestinal: Reports abdominal pain Psychiatric: Reports anxiety Past Medical History Additional Past Medical History / Comment(s): IBS, skin cancer History of Any Multi-Drug Resistant Organisms: None Reported Additional Past Surgical History / Comment(s): Skin cancer removal Past Anesthesia/Blood Transfusion Reactions: No Reported Reaction Past Psychological History: Depression Smoking Status: Former smoker Past Alcohol Use History: None Reported Past Drug Use History: None Reported Medications and Allergies Home Medications Medication Instructions Recorded Confirmed Type Citalopram Hydrobromide 10 mg PO HS 01/05/18 01/05/18 History [Citalopram HBr] Citalopram Hydrobromide 20 mg PO DAILY 01/05/18 01/05/18 History [Citalopram HBr] Eluxadoline [Viberzi] 75 mg PO BID 01/05/18 01/05/18 History Ibuprofen [Motrin] 800 mg PO TID PRN 01/05/18 01/05/18 History Allergies Allergy/AdvReac Type Severity Reaction Status Date / Time Penicillins Allergy Swelling Verified 01/05/18 18:47 Physical Exam Vitals: Vital Signs Temp Pulse Pulse Resp BP BP Pulse Ox 01/06/18 18:30 99 22 123/60 98 01/06/18 18:00 86 22 112/53 98 01/06/18 17:30 92 19 112/53 97 01/06/18 16:30 87 22 107/57 99 01/06/18 16:15 94 20 109/54 99 01/06/18 16:00 89 8 L 114/57 99 01/06/18 15:55 19 01/06/18 15:45 82 19 112/54 99 01/06/18 15:30 81 9 L 98/57 95 01/06/18 15:15 83 15 119/60 96 01/06/18 15:00 82 19 109/59 97 01/06/18 14:45 75 17 105/57 98 01/06/18 14:30 78 17 117/58 99 01/06/18 14:15 75 20 102/55 99 01/06/18 14:00 71 22 97/53 100 01/06/18 13:45 76 14 88/56 100 01/06/18 13:30 73 20 91/53 100 01/06/18 13:15 81 13 100/52 99 01/06/18 13:00 78 22 99/53 100 01/06/18 12:45 70 17 101/55 100 01/06/18 12:30 69 17 98/59 100 01/06/18 12:15 69 16 103/56 100 01/06/18 12:00 97.9 F 75 11 L 96/58 99 01/06/18 11:45 71 14 93/54 98 01/06/18 11:30 70 18 92/59 100 01/06/18 11:23 16 01/06/18 11:15 67 16 100/55 99 01/06/18 11:00 95 18 111/58 98 01/06/18 10:45 66 10 L 101/57 99 01/06/18 10:30 65 11 L 93/56 100 01/06/18 10:15 67 17 98/52 99 01/06/18 10:00 74 15 104/52 99 01/06/18 09:45 66 13 99/57 100 01/06/18 09:30 83 13 106/59 100 01/06/18 09:15 62 15 110/70 100 01/06/18 09:00 79 18 102/54 100 01/06/18 08:45 62 32 H 94/47 99 01/06/18 08:30 65 15 94/52 100 01/06/18 08:15 72 12 98/58 99 01/06/18 08:06 62 01/06/18 08:00 97.8 F 62 11 L 100/56 100 01/06/18 07:58 62 01/06/18 07:57 14 01/06/18 07:45 59 L 13 97/59 100 01/06/18 07:30 66 15 91/57 100 01/06/18 07:15 61 15 92/55 100 01/06/18 07:00 63 14 92/49 100 01/06/18 06:45 80 21 92/53 100 01/06/18 06:30 59 L 16 99/48 100 01/06/18 06:17 97.6 F 62 18 99/48 100 01/06/18 06:15 62 19 101/55 100 01/06/18 06:00 56 L 12 104/49 100 01/06/18 05:45 78 6 L 96/56 100 01/06/18 05:30 59 L 11 L 93/51 99 01/06/18 05:15 65 10 L 84/46 99 01/06/18 05:00 58 L 11 L 94/52 99 01/06/18 04:45 59 L 12 87/48 98 01/06/18 04:30 58 L 19 82/44 98 01/06/18 04:15 52 L 23 87/42 98 01/06/18 04:00 57 L 13 90/43 99 01/06/18 03:55 97.8 F 63 15 90/43 99 01/06/18 03:45 57 L 11 L 93/53 99 01/06/18 03:30 97.7 F 66 16 90/56 99 01/06/18 03:25 97.7 F 65 15 90/56 98 01/06/18 03:15 97.7 F 65 16 86/47 99 01/06/18 03:00 67 15 94/51 98 01/06/18 02:45 66 15 87/52 99 01/06/18 02:30 58 L 20 88/50 99 01/06/18 02:10 59 L 13 106/52 100 01/06/18 02:00 62 19 106/52 97 01/06/18 01:50 66 32 H 81/48 99 01/06/18 01:40 60 32 H 92/55 98 01/06/18 01:30 61 32 H 92/55 98 01/06/18 01:20 58 L 16 77/45 98 01/06/18 01:10 57 L 19 85/45 98 01/06/18 01:00 66 14 85/45 98 01/06/18 00:50 62 17 90/51 98 01/06/18 00:40 65 16 78/43 97 01/06/18 00:30 65 14 78/43 97 01/06/18 00:20 69 20 82/46 97 01/06/18 00:10 66 14 85/48 98 01/06/18 00:09 98.3 F 67 20 85/48 97 01/05/18 20:51 100/49 01/05/18 20:40 101.0 F H 98 20 98/55 96 01/05/18 20:16 96 01/05/18 20:14 102 F H 116 H 18 96/54 92 L Intake and Output 01/06/18 01/06/18 01/06/18 06:59 14:59 22:59 Intake Total 4643.265 2323.875 643.687 Output Total 860 850 675 Balance 679.375 979.875 -31.313 Intake: IV 1080 720 600 Sodium Chloride 0.9% 1, 1080 720 600 000 ml @ 120 mls/hr IV . Q8H20M [facility] Rx#:[id number] Intake, IV Titration 081.324 4921.875 43.687 Amount Norepinephrin 4 mg-0.9% 149.375 109.875 43.687 Ns Pmx 4 mg In 250 ml @ Titrate IV .Q0M [facility] Rx#: [id number] Sodium Chloride 0.9% 1, 1000 000 ml @ 999 mls/hr IV . Q1H1M [facility] Rx#:[id number] Blood Product 310 Rc As-1 Unit 310 [id number] Output: Urine 860 850 675 Uretheral (Ellis) 200 Other: Voiding Method Indwelling Catheter Indwelling Catheter Indwelling Catheter # Voids 0 Weight 104.4 kg 104.4 kg Patient Weight 01/07/18 06:59 Weight 104.4 kg - Constitutional General appearance: no acute distress - EENT Eyes: EOMI, PERRLA, dentition normal, normal appearance ENT: hearing grossly normal, normal oropharynx - Neck Neck: normal ROM Thyroid: bilateral: normal size - Respiratory Respiratory: bilateral: CTA - Cardiovascular Rhythm: regular - Gastrointestinal General gastrointestinal: normal bowel sounds, splenomegaly Localized gastrointestinal: tender: epigastric periumbilical - Integumentary Integumentary: normal - Neurologic no focal defects, equal strength - Musculoskeletal Musculoskeletal: strength equal bilaterally - Psychiatric Psychiatric: A&O x's 3, appropriate affect Results CBC & Chem 7: 01/06/18 12:24 01/06/18 22:26 Labs: Abnormal Lab Results - Last 24 Hours (Table) 01/05/18 01/05/18 01/05/18 Range/Units 18:48 18:48 18:48 WBC 12.7 H (3.8-10.6) k/uL RBC 3.26 L (4.30-5.90) m/uL Hgb 9.4 L (13.0-17.5) gm/dL Hct 28.7 L (39.0-53.0) % MCHC (31.0-37.0) g/dL RDW 17.5 H (11.5-15.5) % Plt Count 68 L (150-450) k/uL Lymphocytes # (Manual) (1.0-4.8) k/uL Monocytes # (Manual) 5.33 H (0-1.0) k/uL Metamyelocytes # (Man) (0) k/uL Myelocytes # (Manual) (0) k/uL Promyelocytes # (Man) (0) k/uL Blast Cells # (Man) (0) k/uL Nucleated RBCs (0-0) /100 WBC Pathologist Review PT 13.8 H (9.0-12.0) sec INR 1.5 H (<1.2) Sodium 133 L (137-145) mmol/L Chloride 96 L (98-107) mmol/L Creatinine 1.72 H (0.66-1.25) mg/dL Glucose 179 H (74-99) mg/dL POC Glucose (mg/dL) (75-99) mg/dL Calcium 7.9 L (8.4-10.2) mg/dL AST 15 L (17-59) U/L ALT (21-72) U/L Total Creatine Kinase (55-170) U/L Total Protein 5.4 L (6.3-8.2) g/dL Albumin 2.8 L (3.5-5.0) g/dL Amylase 116 H (30-110) U/L Lipase 451 H (23-300) U/L Ur Specific [place] (1.001-1.035) Urine Protein (Negative) Urine Blood (Negative) Urine RBC (0-5) /hpf Urine WBC (0-5) /hpf Ur Squamous Epith Cells (0-4) /hpf Amorphous Sediment (None) /hpf Urine Mucus (None) /hpf Urine Opiates Screen (Negative) ng/mL Urine Barbiturates (Negative) ng/mL Crossmatch 01/05/18 01/05/18 01/05/18 Range/Units 18:48 18:48 20:02 WBC (3.8-10.6) k/uL RBC (4.30-5.90) m/uL Hgb (13.0-17.5) gm/dL Hct (39.0-53.0) % MCHC (31.0-37.0) g/dL RDW (11.5-15.5) % Plt Count (150-450) k/uL Lymphocytes # (Manual) (1.0-4.8) k/uL Monocytes # (Manual) (0-1.0) k/uL Metamyelocytes # (Man) (0) k/uL Myelocytes # (Manual) (0) k/uL Promyelocytes # (Man) (0) k/uL Blast Cells # (Man) (0) k/uL Nucleated RBCs (0-0) /100 WBC Pathologist Review PT (9.0-12.0) sec INR (<1.2) Sodium (137-145) mmol/L Chloride (98-107) mmol/L Creatinine (0.66-1.25) mg/dL Glucose (74-99) mg/dL POC Glucose (mg/dL) (75-99) mg/dL Calcium (8.4-10.2) mg/dL AST (17-59) U/L ALT (21-72) U/L Total Creatine Kinase 43 L (55-170) U/L Total Protein (6.3-8.2) g/dL Albumin (3.5-5.0) g/dL Amylase (30-110) U/L Lipase (23-300) U/L Ur Specific [place] >1.050 H (1.001-1.035) Urine Protein 1+ H (Negative) Urine Blood Trace H (Negative) Urine RBC 10 H (0-5) /hpf Urine WBC 52 H (0-5) /hpf Ur Squamous Epith Cells 26 H (0-4) /hpf Amorphous Sediment Few H (None) /hpf Urine Mucus Moderate H (None) /hpf Urine Opiates Screen (Negative) ng/mL Urine Barbiturates (Negative) ng/mL Crossmatch See Detail 01/05/18 01/06/18 01/06/18 Range/Units 22:19 00:21 02:10 WBC (3.8-10.6) k/uL RBC 2.51 L (4.30-5.90) m/uL Hgb 7.1 L D (13.0-17.5) gm/dL Hct 22.6 L (39.0-53.0) % MCHC (31.0-37.0) g/dL RDW 17.4 H (11.5-15.5) % Plt Count 48 L* (150-450) k/uL Lymphocytes # (Manual) 0.80 L (1.0-4.8) k/uL Monocytes # (Manual) 4.00 H (0-1.0) k/uL Metamyelocytes # (Man) 0.10 H (0) k/uL Myelocytes # (Manual) 0.10 H (0) k/uL Promyelocytes # (Man) (0) k/uL Blast Cells # (Man) 0.50 H (0) k/uL Nucleated RBCs 1 H (0-0) /100 WBC Pathologist Review See comment A PT (9.0-12.0) sec INR (<1.2) Sodium (137-145) mmol/L Chloride (98-107) mmol/L Creatinine (0.66-1.25) mg/dL Glucose (74-99) mg/dL POC Glucose (mg/dL) 162 H (75-99) mg/dL Calcium (8.4-10.2) mg/dL AST (17-59) U/L ALT (21-72) U/L Total Creatine Kinase (55-170) U/L Total Protein (6.3-8.2) g/dL Albumin (3.5-5.0) g/dL Amylase (30-110) U/L Lipase (23-300) U/L Ur Specific [place] (1.001-1.035) Urine Protein (Negative) Urine Blood (Negative) Urine RBC (0-5) /hpf Urine WBC (0-5) /hpf Ur Squamous Epith Cells (0-4) /hpf Amorphous Sediment (None) /hpf Urine Mucus (None) /hpf Urine Opiates Screen Positive H (Negative) ng/mL Urine Barbiturates Positive H (Negative) ng/mL Crossmatch 01/06/18 01/06/18 01/06/18 Range/Units 07:17 07:17 12:24 WBC 12.7 H (3.8-10.6) k/uL RBC 3.03 L 2.86 L (4.30-5.90) m/uL Hgb 8.6 L D 8.0 L (13.0-17.5) gm/dL Hct 27.2 L 26.5 L (39.0-53.0) % MCHC 30.1 L (31.0-37.0) g/dL RDW 17.3 H 17.4 H (11.5-15.5) % Plt Count 52 L 42 L* (150-450) k/uL Lymphocytes # (Manual) 0.59 L (1.0-4.8) k/uL Monocytes # (Manual) 5.46 H 1.83 H (0-1.0) k/uL Metamyelocytes # (Man) (0) k/uL Myelocytes # (Manual) 0.06 H (0) k/uL Promyelocytes # (Man) 0.13 H (0) k/uL Blast Cells # (Man) 0.38 H 0.30 H (0) k/uL Nucleated RBCs 2 H (0-0) /100 WBC Pathologist Review PT (9.0-12.0) sec INR (<1.2) Sodium (137-145) mmol/L Chloride (98-107) mmol/L Creatinine (0.66-1.25) mg/dL Glucose 131 H (74-99) mg/dL POC Glucose (mg/dL) (75-99) mg/dL Calcium 7.2 L (8.4-10.2) mg/dL AST 10 L (17-59) U/L ALT 19 L (21-72) U/L Total Creatine Kinase (55-170) U/L Total Protein 4.7 L (6.3-8.2) g/dL Albumin 2.2 L (3.5-5.0) g/dL Amylase (30-110) U/L Lipase (23-300) U/L Ur Specific [place] (1.001-1.035) Urine Protein (Negative) Urine Blood (Negative) Urine RBC (0-5) /hpf Urine WBC (0-5) /hpf Ur Squamous Epith Cells (0-4) /hpf Amorphous Sediment (None) /hpf Urine Mucus (None) /hpf Urine Opiates Screen (Negative) ng/mL Urine Barbiturates (Negative) ng/mL Crossmatch Microbiology - Last 24 Hours (Table) 01/06/18 02:10 Urine Culture - Preliminary Urine,Catheterized Chest x-ray: report reviewed CT scan - abdomen: report reviewed CT scan - pelvis: report reviewed US - abdomen: report reviewed Assessment and Plan (1) Normocytic anemia Narrative/Plan: 1. Likely Secondary to acute blood loss, underlying production issue due to SIRS 2. Ok for EGD/Colonscopy as planned 3. Transfusions supportive if hgb less than 7, or symptomatic 4. lab work and has been ordered, Await results Current Visit: Yes Status: Acute Code(s): D64.9 - ANEMIA, UNSPECIFIED SNOMED Code(s): 967159467 (2) Leukocytosis (leucocytosis) Narrative/Plan: 1. I have reviewed the peripheral slide, there is evidence of monocytosis. By my review, possible blasts were noted very infrequently. this at this time, an acute leukemic process appears to be unlikely. We will await flow cytometry results. if negative for significant blast percentage, a chronic myeloproliferative disorder would be clinically more likely, given the significant monocytosis. in that situation, appropriate additional workup will be ordered, including possibly a bone marrow biopsy will be scheduled. 2. Continue to monitor CBC with Differential Daily Current Visit: Yes Status: Acute Code(s): D72.829 - ELEVATED WHITE BLOOD CELL COUNT, UNSPECIFIED SNOMED Code(s): 166890451 (3) Thrombocytopenia Narrative/Plan: 1. Maybe secondary to underlying infection, recent IBS medication and/or underlying bone marrow issue. 2. Monitor Coags and CBC 3. Trasfuse if evidence of bleeding less than 50, prior to procedure if less than 50 4. Transfuse less than 10 Current Visit: Yes Status: Acute Code(s): D69.6 - THROMBOCYTOPENIA, UNSPECIFIED SNOMED Code(s): 140639089 (4) Pancreatitis Narrative/Plan: at this time, appears to be the likely source of his SIRS type presentation, based on symptoms and CT appearance. Deferred to admitting service, and GI for continued management Current Visit: Yes Status: Acute Code(s): K85.90 - ACUTE PANCREATITIS WITHOUT NECROSIS OR INFECTION, UNSP SNOMED Code(s): 09874586
[2018-01-07 04:36] LABS: ALT 23 U/L (21-72); AST 10 U/L (17-59); Albumin 2.2 g/dL (3.5-5.0); Alkaline Phosphatase 73 U/L (38-126); Amylase <30 U/L (30-110); Anion Gap 7 mmol/L; Blood Urea Nitrogen 12 mg/dL (9-20); Calcium 7.3 mg/dL (8.4-10.2); Carbon Dioxide 26 mmol/L (22-30); Chloride 104 mmol/L (98-107); Glucose 124 mg/dL (74-99); Lipase 106 U/L (23-300); Magnesium 2.4 mg/dL (1.6-2.3); Phosphorus 3.6 mg/dL (2.5-4.5); Potassium 3.7 mmol/L (3.5-5.1); Sodium 137 mmol/L (137-145); Total Bilirubin 0.3 mg/dL (0.2-1.3); Total Protein 4.6 g/dL (6.3-8.2); Triglycerides 102 mg/dL (<150)
[2018-01-07 04:51] LABS: Anisocytosis Slight; HCT 27.1 % (39.0-53.0); HGB 8.4 gm/dL (13.0-17.5); Hypochromasia Slight; MCH 28.1 pg (25.0-35.0); MCHC 30.9 g/dL (31.0-37.0); MCV 90.9 fL (80.0-100.0); Mean Platelet Volume 10.7; Poikilocytosis Slight; RBC 2.98 m/uL (4.30-5.90); RDW 17.4 % (11.5-15.5)
[2018-01-07 04:54] LABS: Platelet Count 48 k/uL (150-450)
[2018-01-07 05:10] LABS: INR 1.4 (<1.2)
[2018-01-07 05:14] LABS: Prothrombin Time 13.5 sec (9.0-12.0)
[2018-01-07 05:28] LABS: Reticulocyte % 0.8 % (0.5-2.0)
[2018-01-07 07:35] LABS: Band Neutrophils % 10 %; Blast Cells # (M) 0.11 k/uL (0); Eosinophils # (M) 0.11 k/uL (0-0.7); Metamyelocytes # (M) 0.06 k/uL (0); Metamyelocytes % 1 %; Myelocytes # (M) 0.06 k/uL (0); Myelocytes % 1 %; Neutrophils % (M) 51 %; Nucleated Red Blood Cells 1 /100 WBC (0-0); Total Cells Counted 200
[2018-01-07 07:36] LABS: Lymphocytes # (M) 0.72 k/uL (1.0-4.8); Monocytes # (M) 1.21 k/uL (0-1.0); WBC 5.5 k/uL (3.8-10.6)
[2018-01-07 07:39] LABS: Polychromasia Present
[2018-01-07] MEDS ORDERED: POTASSIUM CHLORIDE ER 20 MEQ TAB.ER PO SCH (08:00)
[2018-01-07] MEDS: IPRATROPIUM-ALBUTEROL 3 ML NEB INHALATION SCH ×4 (08:35→19:12)
[2018-01-07] MEDS: MEROPENEM 1 GM in SODIUM CHLORIDE 0.9% 100 ML IVPB SCH ×2 (08:44→19:01)
[2018-01-07] MEDS: PANTOPRAZOLE 40 MG/10 ML VIAL IVP SCH (08:45)
[2018-01-07] MEDS: METOPROLOL TARTRATE 12.5 MG TAB PO SCH ×2 (10:45→20:38)
[2018-01-07 11:57] LABS: Protein, Total 4.6 g/dL (6.2-8.2)
--- NOTE | 2018-01-07 12:40 | P.PN ---
Subjective Progress Note Date: 01/07/18 Principal diagnosis: Acute sepsis and septic shock and hypovolemic shock. 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 Patient was recently seen by his primary care physician with complaints of epigastric discomfort, and intermittent episodes of diarrhea. Patient was placed on viberzi, without much improvement. Patient has been losing weight but according to him he has been losing the weight on purpose and following a diet. Upon presentation to the ER , patient was noted to be febrile with a temp of 103. Patient is also noted to have anemia, and at one point he required fluid boluses, placed on small dose of levo fed for low blood pressure, and he is presently on 4 mcg/m. Received a unit of packed RBCs, seen by gastroenterology on consultation, and he is scheduled to undergo EGD and colonoscopy tomorrow. In addition to anemia with a hemoglobin of 7.1 on presentation, patient was noted to have thrombocytopenia with low platelets count of 48,000, bacteriuria and pyuria, elevated pancreatic enzymes including elevated amylase and lipase. Lactic acid was 1.2 initial renal profile showed a BUN of 19 and creatinine of 1.72, however follow-up creatinine today is 1.10. Considering the hypotension, the fever, the anemia, and elevated pancreatic enzymes, and positive Hemoccult stools, patient was admitted to the ICU, and I was asked to see him on consultation. CT of the abdomen and pelvis showed mild pancreatitis, some thickening of the bowel wall consistent with enteritis, and there was evidence of splenomegaly. Small gallstones were noted x-ray of the chest was negative. Patient denies any headaches, no blurred vision no dizziness, no shortness of breath, no chest pain , most of his symptoms are mostly GI as noted above. He describes some weight loss, fever, nausea vomiting and intermittent episodes of diarrhea. No aches and pains, no other significant symptoms besides sweats mentioned already. Patient was reevaluated today on 01/07/2018, feeling much better, patient is scheduled to undergo EGD and colonoscopy today. He was already seen by oncology for his abnormal peripheral smear, the oncologist does not seem to be too worried about the findings so far, however the pathology lab was more concerned. At any rate we are waiting for the cytometry results, and then based on that decision will be made whether the patient will need further diagnostic workup including bone marrow biopsy. In the meantime the patient continues to do clinically better, hemoglobin is about the same, WBC count is 5.5 platelets are 48,000. Basic metabolic profile is normal. Objective - Vital Signs Vital signs: Vital Signs Temp 98.5 F 01/07/18 12:00 Pulse 93 01/07/18 12:00 Resp 20 01/07/18 12:00 BP 99/60 01/07/18 12:00 Pulse Ox 98 01/07/18 11:30 Intake & Output 01/06/18 01/07/18 01/07/18 18:59 06:59 18:59 Intake Total 2353.562 1560 360 Output Total 1400 715 170 Balance 953.562 845 190 Weight 104.4 kg 107.8 kg 107.8 kg Intake: IV 1200 1560 360 Sodium Chloride 0.9% 1, 1200 1560 360 000 ml @ 120 mls/hr IV . Q8H20M [facility] Rx#:[id number] Intake, IV Titration 1153.562 Amount Norepinephrin 4 mg-0.9% 153.562 Ns Pmx 4 mg In 250 ml @ Titrate IV .Q0M [facility] Rx#: [id number] Sodium Chloride 0.9% 1, 1000 000 ml @ 999 mls/hr IV . Q1H1M [facility] Rx#:[id number] Blood Product 0 Platelet Pheresis Acda1 0 Unit [id number] Output: Urine 1400 715 170 Other: Voiding Method Indwelling Catheter Indwelling Catheter Indwelling Catheter # Voids 0 - Exam General appearance: Physical examination revealed a 57-year-old in no distress. Head: Atraumatic, normocephalic. HEENT: Moist mucous membranes, no neck masses, no JVD, no stridor, no cervical lymphadenopathy, no thyromegaly.. Neck: Supple, no neck masses, no lymphadenopathy. Heart: Normal S1 and S2, no S3 gallop. Lungs: Symmetrical chest expansion, clear bilaterally no crackles or rhonchi or wheezes Abdomen: Flat, soft, nontender, no megaly, no rebound, positive bowel sounds. Extremities: Normal skin color and turgor. No cyanosis, rash, ulceration, clubbing, or edema. Radial and pedal pulses are 2/4 bilaterally. Neurological: Alert and oriented 3, no gross focal deficit. Psychiatric: Normal mood and affect, sound judgment and insight. - Labs CBC & Chem 7: 01/07/18 04:10 01/07/18 04:10 Labs: Abnormal Lab Results - Last 24 Hours (Table) 01/06/18 01/06/18 01/06/18 Range/Units 00:21 02:10 07:17 RBC (4.30-5.90) m/uL Hgb (13.0-17.5) gm/dL Hct (39.0-53.0) % MCHC (31.0-37.0) g/dL RDW (11.5-15.5) % Plt Count (150-450) k/uL Lymphocytes # (Manual) (1.0-4.8) k/uL Monocytes # (Manual) (0-1.0) k/uL Metamyelocytes # (Man) (0) k/uL Myelocytes # (Manual) (0) k/uL Blast Cells # (Man) (0) k/uL Nucleated RBCs (0-0) /100 WBC Pathologist Review See comment A PT (9.0-12.0) sec INR (<1.2) Fibrinogen (200-500) mg/dL Glucose (74-99) mg/dL Calcium (8.4-10.2) mg/dL Magnesium (1.6-2.3) mg/dL TIBC 167 L (228-460) ug/dL Ferritin 1963.9 H (22.0-322.0) ng/mL AST (17-59) U/L Total Protein (6.3-8.2) g/dL Albumin (3.5-5.0) g/dL Amylase (30-110) U/L CA 19-9 Antigen 66.2 H (0.0-34.9) U/mL Urine Opiates Screen Positive H (Negative) ng/mL Urine Barbiturates Positive H (Negative) ng/mL 01/06/18 01/06/18 01/07/18 Range/Units 12:24 22:26 04:10 RBC 2.86 L 2.98 L (4.30-5.90) m/uL Hgb 8.0 L 8.4 L (13.0-17.5) gm/dL Hct 26.5 L 27.1 L (39.0-53.0) % MCHC 30.1 L 30.9 L (31.0-37.0) g/dL RDW 17.4 H 17.4 H (11.5-15.5) % Plt Count 42 L* 48 L* (150-450) k/uL Lymphocytes # (Manual) 0.59 L 0.72 L (1.0-4.8) k/uL Monocytes # (Manual) 1.83 H 1.21 H (0-1.0) k/uL Metamyelocytes # (Man) 0.06 H (0) k/uL Myelocytes # (Manual) 0.06 H 0.06 H (0) k/uL Blast Cells # (Man) 0.30 H 0.11 H (0) k/uL Nucleated RBCs 2 H 1 H (0-0) /100 WBC Pathologist Review PT (9.0-12.0) sec INR (<1.2) Fibrinogen (200-500) mg/dL Glucose 192 H (74-99) mg/dL Calcium 7.4 L (8.4-10.2) mg/dL Magnesium 2.4 H (1.6-2.3) mg/dL TIBC (228-460) ug/dL Ferritin (22.0-322.0) ng/mL AST (17-59) U/L Total Protein (6.3-8.2) g/dL Albumin (3.5-5.0) g/dL Amylase (30-110) U/L CA 19-9 Antigen (0.0-34.9) U/mL Urine Opiates Screen (Negative) ng/mL Urine Barbiturates (Negative) ng/mL 01/07/18 01/07/18 Range/Units 04:10 04:10 RBC (4.30-5.90) m/uL Hgb (13.0-17.5) gm/dL Hct (39.0-53.0) % MCHC (31.0-37.0) g/dL RDW (11.5-15.5) % Plt Count (150-450) k/uL Lymphocytes # (Manual) (1.0-4.8) k/uL Monocytes # (Manual) (0-1.0) k/uL Metamyelocytes # (Man) (0) k/uL Myelocytes # (Manual) (0) k/uL Blast Cells # (Man) (0) k/uL Nucleated RBCs (0-0) /100 WBC Pathologist Review PT 13.5 H (9.0-12.0) sec INR 1.4 H (<1.2) Fibrinogen 671 H (200-500) mg/dL Glucose 124 H (74-99) mg/dL Calcium 7.3 L (8.4-10.2) mg/dL Magnesium 2.4 H (1.6-2.3) mg/dL TIBC (228-460) ug/dL Ferritin (22.0-322.0) ng/mL AST 10 L (17-59) U/L Total Protein 4.6 L (6.3-8.2) g/dL Albumin 2.2 L (3.5-5.0) g/dL Amylase <30 L (30-110) U/L CA 19-9 Antigen (0.0-34.9) U/mL Urine Opiates Screen (Negative) ng/mL Urine Barbiturates (Negative) ng/mL Microbiology - Last 24 Hours (Table) 01/06/18 02:10 Urine Culture - Final Urine,Catheterized 01/05/18 18:48 Blood Culture - Preliminary Blood No Growth after 24 hours Assessment and Plan Assessment: Impression: 1 acute sepsis and septic shock, likely sources is either abdominal source/ colitis or related to urinary tract infection as noted by his abnormal urinalysis. The microbiology so far seems to be negative and nondiagnostic. 2 possible hypovolemic shock secondary to pancreatitis however this is felt to be less likely. 3 acute thrombocytopenia secondary to sepsis or possibly secondary to a myeloproliferative disorder 4 acute anemia secondary to GI blood losses, most likely upper GI in nature. Patient is scheduled to undergo EGD and colonoscopy. 5 acute pancreatitis likely gallstones related. Patient does not drink any alcohol, and no history of hypertriglyceridemia. 6 history of irritable bowel syndrome and recurrent episodes of colitis. Possibility of inflammatory colitis is to be considered. 7 weight loss, most likely related to his chronic colitis. 8 abnormal peripheral smear suggestive of myeloproliferative disorder, final studies are pending. Patient is being followed by oncology. Recommendation: Continue present treatment plan including antibiotics, fluids, Protonix, pressors since the patient did not improve much with fluid boluses. Continue IV fluids, will have EGD and colonoscopy in a.m. We'll continue to monitor, however the patient could be transferred out of the ICU to a monitor bed on selective, and we'll continue to follow. Time with Patient: Less than 30
[2018-01-07 12:49] LABS: IgG Subclass 4 8.3 mg/dL (3.0-175.0)
[2018-01-07 13:02] LABS: IgG Subclass 3 22.2 mg/dL (11.0-85.0)
--- NOTE | 2018-01-07 15:54 | PN ---
PROGRESS NOTE DATE OF SERVICE: 01/07/2018. REASON FOR FOLLOWUP: Acute gallstone pancreatitis with fever. INTERVAL HISTORY: The patient's fever pattern has improved. He has been breathing comfortably. Pain to the epigastric area has slightly improved. Some nausea, but no vomiting. Denies having any chest pain, shortness of breath, cough. No diarrhea. EXAMINATION: Blood pressure 122/60, pulse of 80, temperature of 99.4. He is 98% on room air. General description is a middle-aged male lying in bed in no distress. Respiratory system, unlabored breathing. Clear to auscultation anteriorly. Heart, S1, S2 regular rate and rhythm. Abdomen with tenderness in the epigastric area. Extremities reveal no edema of the feet. LABS: Hemoglobin 8.4, white count 5.5 with a BUN of 12, creatinine 0.90. DIAGNOSTIC IMPRESSION AND PLAN: Patient in the hospital with sepsis, fever, elevated white count. This is likely gallstone pancreatitis. Currently on meropenem because of his PENICILLIN ALLERGY and that will be continued for now while waiting for the condition to stabilize. Continue supportive care. Family present at bedside. Questions were answered. MMODL / IJN: [id number] /
[2018-01-07] MEDS ORDERED: IV FLUID CONTINUATION 1,000 ML IV ONE (16:15)
[2018-01-07] MEDS ORDERED: fentaNYL (PF) 50 MCG/ML 2 ML AMP ONE (16:16)
[2018-01-07] MEDS ORDERED: PROPOFOL 10 MG/ML 20 ML VIAL IV ONE (16:16)
--- NOTE | 2018-01-07 17:25 | P.PCN ---
Date of Procedure: 01/07/18 Procedure(s) Performed: Procedure: 1. Esophagogastroduodenoscopy and biopsy. 2. Colonoscopy and biopsy. Preoperative diagnosis: Epigastric pain and chronic diarrhea. Postoperative diagnosis: 1. Small sliding hiatal hernia with no obvious esophagitis or complicated reflux disease. 2. Antral gastritis. 3. Colon exam does not reveal any obvious abnormalities. Preparation: GoLYTELY prep. Sedation: Was provided by anesthesia. Brief clinical history: The patient is a 57-year-old male with a past medical history of depression. 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 Over the last 6 months he has been experiencing intermittent midepigastric pain , nonbloody diarrhea and was recently placed on Viberzi without much improvement. He presents with multiple symptoms including fatigue, fever, weakness and epigastric pain without reflux. T-max 102.0. He has intentionally lost 15 pounds over the last 6 months secondary to diet changes. Pain is centered in the midepigastric region does not necessarily worsened with meals. Denies overt bleeding such as hematemesis, hematochezia or melena. Admission white count 12.7. Hemoglobin 9.4. MCV 88. Platelets 60,000. Hemoglobin yesterday was 7.1 received 1 unit of blood presently 8.6. Platelet 52,000. INR 1.5. BUN 19. Creatinine 1.7. Lipase 451. Amylase 116. LFTs unremarkable total bilirubin 0.9. AST 15. ALT 22. Alkaline phosphatase 81. Hemoccult stool positive. No prior EGD or colonoscopy. No history of GI bleed or peptic ulcer disease. No history of pancreatitis. Takes an couple tablets of Advil as needed for arthritic musculoskeletal discomfort. No history of EtOH abuse or nicotine cigarette dependency. CT abdomen and pelvis small gallstone no occupying hepatic lesions. Biliary tree normal caliber. Mild infiltrate changes surrounding the pancreas. Moderate small bowel wall thickening suspicious for nonspecific enteritis. The details are summarized in the history and physical and dictated consultations and progress notes. This evaluation is to assess for peptic ulcer disease or inflammatory bowel disease. Procedure: With the patient on his left lateral decubitus position and after informed consent and adequate sedation, I passed the Olympus-GIF 160 video upper endoscope through the cricopharyngeus down the esophagus. There was a small sliding hiatal hernia but the esophagus did not show any obvious esophagitis or complicated reflux disease. The endoscope was then passed into the stomach which was insufflated with air and inspected in detail including the retroflex view in the cardia. There was some mottling and erythema and couple small erosions in the antrum but no ulcers or erosions. Pyloric channel did not show any ulcers. Duodenal bulb, post bulbar area and descending duodenum appeared within normal limits. I obtained biopsies from the antrum then the endoscope was withdrawn and I proceeded with the colonoscopy. Perianal area did not show any fissures or fistulas. There were no masses felt on digital rectal examination. The Olympus CFQ 160L video colonoscope was then inserted in the rectum in the usual fashion and advanced to the cecum. I was not able to intubate the ileocecal valve but was able to pass the biopsy forceps blindly and obtain biopsy from the small intestine. The colon appeared healthy. I obtained random biopsies from the colon then the endoscope was withdrawn. I retroflexed endoscope in the rectum before the endoscope was withdrawn. The patient tolerated the procedure well. Plan: The patient was reassured. Will allow diet as tolerated and make further plans based on his course and biopsy results. We will continue to follow with interest.
[2018-01-07] MEDS: LACTATED RINGERS 1,000 ML IV SCH (17:40)
--- NOTE | 2018-01-07 18:05 | CONS ---
CONSULTATION DATE OF SERVICE: 01/07/2018. 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 Apparently he was seen by his primary care physician with complaints of diarrhea, nausea, vomiting, and admitted to the hospital. He was noted to have significant anemia and he was also hypotensive and received 1 packed unit of RBC. He was seen by Gastroenterology and scheduled to undergo EGD and colonoscopy. Apparently he had also an episode of pancreatitis recently as well. The reason for his admission to the ICU was mainly because of hypotension requiring a small dose of Levophed. CT of the abdomen shows some mild pericarditis and thickening of the bowel consistent with enteritis. There was also splenomegaly noted and anemia and this is being worked up. I was asked to see the patient mainly because of some ventricular ectopy with some R and T-type beats. The patient seems quite comfortable and asymptomatic at the time of my evaluation. PAST MEDICAL HISTORY: History of irritable bowel syndrome, history of some skin cancer details unclear, underlying depression. Patient is not a smoker. Does not consume alcohol. ALLERGIES: PENICILLIN. MEDICATIONS: Celexa and Motrin. LABORATORY DATA: Low hemoglobin of 9.4. His other laboratory data seemed to be okay. There was also an elevated lipase of 451, suggestive of some pancreatitis-type picture. He EKG revealed a sinus tachycardia with isolated PVCs, but no repetitive beats. LABORATORY DATA: Potassium and magnesium levels are acceptable at 3.7 with replacement for potassium and 2.4 with magnesium. His INR is 1.4 and patient is not on any anticoagulants. PHYSICAL EXAMINATION: Blood pressure is 109/60, pulse rate is about 80 per minute and regular. HEENT unremarkable. Fundus was not examined by me. Neck is supple. There is no JVD. I do not hear a carotid bruit. Heart exam reveals S1, S2 heard normally but distantly. No significant murmurs. Lungs are clear. Abdomen is soft. Mild epigastric tenderness. Lower extremities reveal diminished pulses. Central nervous system is normal. EKG revealed sinus tachycardia, isolated PVCs, no acute changes. IMPRESSION: 1. Ventricular ectopy, isolated in fashion. I do not believe this is anything significant that would require any aggressive intervention. 2. History of pancreatitis. 3. Anemia of unclear etiology, workup in progress. 4. History of irritable bowel syndrome. 5. Splenomegaly of unclear etiology. RECOMMENDATIONS: I am recommending that we initiate him on a small dose of beta rodo. Obtain echocardiogram to assess LV function. Based on this, I will make further recommendations. I discussed my thoughts in detail with the patient. Thank you very much for the consult. PARVEZ / LEIDA: [id number] /
--- NOTE | 2018-01-07 18:33 | PN ---
PROGRESS NOTE DATE OF SERVICE: 01/07/2018 This 57-year-old gentleman admitted with features of acute pancreatitis, also hypotension and possibly sepsis suspected. The patient on broad spectrum IV antibiotics. The patient also suspected hematology malignancy which is rather unlikely per Dr. Shea. Could be due to secondary to infections. Dr. Pearl is also following the patient closely. The urinary source is another possibility as well. The patient is on Levophed. The patient is closely monitored at this time. PAST MEDICAL HISTORY: Reviewed. REVIEW OF SYSTEMS: CARDIOVASCULAR: No angina. RESPIRATORY: As mentioned earlier. GI: As mentioned earlier. : No dysuria. NERVOUS SYSTEM: No numbness, weakness. CURRENT MEDICATIONS: 1. DuoNeb q.i.d. and p.r.n. 2. Dilaudid 0.5 mg q.2h p.r.n. 3. Motrin. 4. Lactate Ringers. 5. Meropenem 1 g IV q.8h. 6. Lopressor 12.5 mg b.i.d. 7. Narcan. 8. Protonix. PHYSICAL EXAM: Patient is alert, oriented x3. The pulse is 88, blood pressure 128/63, respiration 18, temperature 99.4, pulse ox 97% room air. HEENT: Conjunctivae normal. NECK: No jugular venous distention. CARDIOVASCULAR: S1, S2. RESPIRATORY: Breath sounds diminished in the bases. A few scattered rhonchi. ABDOMEN: Soft, mild diffuse distention present, mild diffuse discomfort also present. No mass palpable. LEGS: No edema, no swelling. NERVOUS SYSTEM: No focal deficits. LABS: WBC 5.2, hemoglobin is 8.4, platelets of 48, and INR is 1.4. ASSESSMENT: 1. Acute pancreatitis with possible sepsis and severe sepsis and hypotension, septic shock. 2. Possible urinary tract infection. 3. Abdominal pain for evaluation. 4. Anemia rule out gastrointestinal bleed. 5. Hyponatremia. 6. Increased creatinine with mild acute renal possibly secondary to prerenal factors present on admission. 7. Increased amylase and lipase. 8. Increased WBC. 9. Anemia. 10.Irritable bowel syndrome. 11.Thrombocytopenia. 12.History of skin cancer. 13.History of depression. 14.High CA19-9. RECOMMENDATIONS AND DISCUSSION: I recommend to continue current management and symptomatic treatment, otherwise at this time I recommend to continue the broad-spectrum IV antibiotics. CA19-9 is 66.2. I would recommend to continue follow closely with multiple consultants as mentioned earlier. Prognosis guarded. Empiric antibiotics. Follow the cultures. Further recommendations to follow. MMODL / IJN: [id number] /
[2018-01-07] MEDS: SODIUM CHLORIDE 0.9% 1,000 ML IV SCH (20:41)
[2018-01-08] MEDS: SODIUM CHLORIDE 0.9% 1,000 ML IV SCH ×6 (00:09→20:09)
[2018-01-08] MEDS: MEROPENEM 1 GM in SODIUM CHLORIDE 0.9% 100 ML IVPB SCH ×4 (00:09→22:54)
[2018-01-08] MEDS: HYDROmorphone 0.5 MG/0.5 ML SYRINGE IVP PRN ×5 (00:09→22:52)
[2018-01-08 02:28] LABS: Anisocytosis Slight; HCT 25.1 % (39.0-53.0); HGB 7.7 gm/dL (13.0-17.5); Hypochromasia Moderate; MCH 28.8 pg (25.0-35.0); MCHC 30.8 g/dL (31.0-37.0); MCV 93.7 fL (80.0-100.0); Mean Platelet Volume 11.3; RBC 2.68 m/uL (4.30-5.90); RDW 17.1 % (11.5-15.5); WBC 5.8 k/uL (3.8-10.6)
[2018-01-08 02:37] LABS: Platelet Count 53 k/uL (150-450)
[2018-01-08 02:43] LABS: ALT 27 U/L (21-72); AST 18 U/L (17-59); Albumin 2.1 g/dL (3.5-5.0); Alkaline Phosphatase 77 U/L (38-126); Anion Gap 9 mmol/L; Blood Urea Nitrogen 10 mg/dL (9-20); Calcium 7.3 mg/dL (8.4-10.2); Carbon Dioxide 24 mmol/L (22-30); Chloride 104 mmol/L (98-107); Glucose 131 mg/dL (74-99); Magnesium 2.3 mg/dL (1.6-2.3); Phosphorus 3.1 mg/dL (2.5-4.5); Potassium 3.8 mmol/L (3.5-5.1); Sodium 137 mmol/L (137-145); Total Bilirubin 0.4 mg/dL (0.2-1.3); Total Protein 4.5 g/dL (6.3-8.2)
[2018-01-08 03:38] LABS: Band Neutrophils % 1 %; Blast Cells # (M) 0.17 k/uL (0); Lymphocytes # (M) 0.99 k/uL (1.0-4.8); Metamyelocytes # (M) 0.06 k/uL (0); Metamyelocytes % 1 %; Monocytes # (M) 0.87 k/uL (0-1.0); Myelocytes # (M) 0.06 k/uL (0); Myelocytes % 1 %; Neutrophils % (M) 63 %; Nucleated Red Blood Cells 0 /100 WBC (0-0); Total Cells Counted 200
[2018-01-08 03:39] LABS: Large Platelets Present
[2018-01-08] MEDS: IPRATROPIUM-ALBUTEROL 3 ML NEB INHALATION SCH ×4 (07:55→20:04)
[2018-01-08] MEDS: METOPROLOL TARTRATE 12.5 MG TAB PO SCH (08:29)
[2018-01-08] MEDS: PANTOPRAZOLE 40 MG/10 ML VIAL IVP SCH (08:31)
--- NOTE | 2018-01-08 09:26 | ECHOF ---
Referral Reason:rythym irregularities MEASUREMENTS -------- HEIGHT: 175.3 cm WEIGHT: 107.5 kg BP: 121/58 RVIDd: 3.5 cm (< 3.3) IVSd: 1.1 cm (0.6 - 1.1) LVIDd: 5.4 cm (3.9 - 5.3) LVPWd: 1.2 cm (0.6 - 1.1) IVSs: 1.8 cm LVIDs: 3.5 cm LVPWs: 1.9 cm LA Diam: 3.9 cm (2.7 - 3.8) LAESV Index (A-L): 42.77 ml/m Ao Diam: 3.5 cm (2.0 - 3.7) AV Cusp: 2.0 cm (1.5 - 2.6) MV EXCURSION: 14.924 mm (> 18.000) MV EF SLOPE: 47 mm/s (70 - 150) EPSS: 1.1 cm MV E Werner: 1.02 m/s MV DecT: 215 ms MV A Werner: 0.89 m/s MV E/A Ratio: 1.15 AV maxP.64 mmHg AV meanP.95 mmHg RAP: 15.00 mmHg RVSP: 39.40 mmHg FINDINGS -------- Sinus rhythm with extra systolic beats. This was a technically adequate study. The left ventricular size is normal. There is borderline concentric left ventricular hypertrophy. Overall left ventricular systolic function is mild-moderately impaired with, an EF between 40 - 45 % . Septal wall motion is delayed, and consistent with conduction delay/bundle branch block. The right ventricle is mildly enlarged. LA is severely dilated >40 ml/m2 The right atrium is normal in size. There is mild aortic valve sclerosis. Mild mitral annular calcification present. Mild mitral regurgitation is present. Mild tricuspid regurgitation present. There is mild pulmonary hypertension. The right ventricular systolic pressure, as measured by Doppler, is 39.40mmHg. The pulmonic valve was not well visualized. The aortic root size is normal. The inferior vena cava is dilated with poor inspiratory collapse which is consistent with estimated r ight atrial pressure of 15 mmHg. There is no pericardial effusion. CONCLUSIONS -------- 1. Sinus rhythm with extra systolic beats. 2. This was a technically adequate study. 3. The left ventricular size is normal. 4. There is borderline concentric left ventricular hypertrophy. 5. Overall left ventricular systolic function is mild-moderately impaired with, an EF between 40 - 45 %. 6. Septal wall motion is delayed, and consistent with conduction delay/bundle branch block. 7. The right ventricle is mildly enlarged. 8. LA is severely dilated >40 ml/m2 9. The right atrium is normal in size. 10. There is mild aortic valve sclerosis. 11. Mild mitral annular calcification present. 12. Mild mitral regurgitation is present. 13. Mild tricuspid regurgitation present. 14. There is mild pulmonary hypertension. 15. The right ventricular systolic pressure, as measured by Doppler, is 39.40mmHg. 16. The pulmonic valve was not well visualized. 17. The aortic root size is normal. 18. The inferior vena cava is dilated with poor inspiratory collapse which is consistent with estimat ed right atrial pressure of 15 mmHg. 19. There is no pericardial effusion. APPRAISER REAL ESTATE: June Hobbs RDCS
--- NOTE | 2018-01-08 11:34 | P.PN ---
Subjective Progress Note Date: 01/07/18 Principal diagnosis: Anemia, THrombocytopenia, Monocytosis Patient and appear agitated as they are waiting for EGD and Colonscopy today. He is looking better, off oxygen. He has no acute complaints at this time. at bedside. His blood counts are mildly improved/stable today. We are still awaiting flow Objective - Vital Signs Vital signs: Vital Signs Temp 99.4 F 01/07/18 16:00 Pulse 88 01/07/18 16:00 Resp 20 01/07/18 16:00 BP 128/68 01/07/18 16:00 Pulse Ox 97 01/07/18 16:00 Intake & Output 01/06/18 01/07/18 01/07/18 18:59 06:59 18:59 Intake Total 2353.562 1560 1819 Output Total 1400 715 305 Balance 953.144 480 1724 Weight 104.4 kg 107.8 kg 107.8 kg Intake: IV 1200 1560 1560 Sodium Chloride 0.9% 1, 1200 1560 1560 000 ml @ 120 mls/hr IV . Q8H20M [facility] Rx#:[id number] Intake, IV Titration 1153.562 Amount Norepinephrin 4 mg-0.9% 153.562 Ns Pmx 4 mg In 250 ml @ Titrate IV .Q0M [facility] Rx#: [id number] Sodium Chloride 0.9% 1, 1000 000 ml @ 999 mls/hr IV . Q1H1M [facility] Rx#:[id number] Blood Product 259 Platelet Pheresis Acda1 259 Unit [id number] Output: Urine 1400 715 305 Other: Voiding Method Indwelling Catheter Indwelling Catheter Indwelling Catheter # Voids 0 - Constitutional General appearance: Present: morbidly obese - EENT Eyes: Present: poor dentition, normal appearance ENT: Present: normal oropharynx - Neck Neck: Present: other - Respiratory Respiratory: bilateral: CTA - Cardiovascular Rhythm: regular - Gastrointestinal General gastrointestinal: Present: soft, splenomegaly, tenderness - Integumentary Integumentary: Present: normal - Neurologic Neurologic Comment(s): no focal defects - Musculoskeletal Musculoskeletal: Present: gait normal - Psychiatric Psychiatric: Present: A&O x's 3, appropriate affect, intact judgment & insight - Labs CBC & Chem 7: 01/08/18 02:18 01/08/18 02:18 Labs: Abnormal Lab Results - Last 24 Hours (Table) 01/06/18 01/06/18 01/07/18 Range/Units 07:17 22:26 04:10 RBC (4.30-5.90) m/uL Hgb (13.0-17.5) gm/dL Hct (39.0-53.0) % MCHC (31.0-37.0) g/dL RDW (11.5-15.5) % Plt Count (150-450) k/uL Lymphocytes # (Manual) (1.0-4.8) k/uL Monocytes # (Manual) (0-1.0) k/uL Metamyelocytes # (Man) (0) k/uL Myelocytes # (Manual) (0) k/uL Blast Cells # (Man) (0) k/uL Nucleated RBCs (0-0) /100 WBC Haptoglobin (31.2-198.0) mg/dL PT (9.0-12.0) sec INR (<1.2) Fibrinogen (200-500) mg/dL Glucose 192 H (74-99) mg/dL Calcium 7.4 L (8.4-10.2) mg/dL Magnesium 2.4 H (1.6-2.3) mg/dL TIBC 167 L (228-460) ug/dL Ferritin 1963.9 H (22.0-322.0) ng/mL AST (17-59) U/L Total Protein (6.3-8.2) g/dL Total Protein (PEP) 4.6 L (6.2-8.2) g/dL Albumin (3.5-5.0) g/dL Amylase (30-110) U/L CA 19-9 Antigen 66.2 H (0.0-34.9) U/mL IgG1 386.0 L (405.0-1011.0) mg/dL Free [place] LC, Quant 2.54 H (0.33-1.94) mg/dL Free Lambda LC, Quant 2.96 H (0.57-2.63) mg/dL 01/07/18 01/07/18 01/07/18 Range/Units 04:10 04:10 04:10 RBC 2.98 L (4.30-5.90) m/uL Hgb 8.4 L (13.0-17.5) gm/dL Hct 27.1 L (39.0-53.0) % MCHC 30.9 L (31.0-37.0) g/dL RDW 17.4 H (11.5-15.5) % Plt Count 48 L* (150-450) k/uL Lymphocytes # (Manual) 0.72 L (1.0-4.8) k/uL Monocytes # (Manual) 1.21 H (0-1.0) k/uL Metamyelocytes # (Man) 0.06 H (0) k/uL Myelocytes # (Manual) 0.06 H (0) k/uL Blast Cells # (Man) 0.11 H (0) k/uL Nucleated RBCs 1 H (0-0) /100 WBC Haptoglobin (31.2-198.0) mg/dL PT 13.5 H (9.0-12.0) sec INR 1.4 H (<1.2) Fibrinogen 671 H (200-500) mg/dL Glucose 124 H (74-99) mg/dL Calcium 7.3 L (8.4-10.2) mg/dL Magnesium 2.4 H (1.6-2.3) mg/dL TIBC (228-460) ug/dL Ferritin (22.0-322.0) ng/mL AST 10 L (17-59) U/L Total Protein 4.6 L (6.3-8.2) g/dL Total Protein (PEP) (6.2-8.2) g/dL Albumin 2.2 L (3.5-5.0) g/dL Amylase <30 L (30-110) U/L CA 19-9 Antigen (0.0-34.9) U/mL IgG1 (405.0-1011.0) mg/dL Free [place] LC, Quant (0.33-1.94) mg/dL Free Lambda LC, Quant (0.57-2.63) mg/dL 01/07/18 Range/Units 04:10 RBC (4.30-5.90) m/uL Hgb (13.0-17.5) gm/dL Hct (39.0-53.0) % MCHC (31.0-37.0) g/dL RDW (11.5-15.5) % Plt Count (150-450) k/uL Lymphocytes # (Manual) (1.0-4.8) k/uL Monocytes # (Manual) (0-1.0) k/uL Metamyelocytes # (Man) (0) k/uL Myelocytes # (Manual) (0) k/uL Blast Cells # (Man) (0) k/uL Nucleated RBCs (0-0) /100 WBC Haptoglobin 456.0 H (31.2-198.0) mg/dL PT (9.0-12.0) sec INR (<1.2) Fibrinogen (200-500) mg/dL Glucose (74-99) mg/dL Calcium (8.4-10.2) mg/dL Magnesium (1.6-2.3) mg/dL TIBC (228-460) ug/dL Ferritin (22.0-322.0) ng/mL AST (17-59) U/L Total Protein (6.3-8.2) g/dL Total Protein (PEP) (6.2-8.2) g/dL Albumin (3.5-5.0) g/dL Amylase (30-110) U/L CA 19-9 Antigen (0.0-34.9) U/mL IgG1 (405.0-1011.0) mg/dL Free [place] LC, Quant (0.33-1.94) mg/dL Free Lambda LC, Quant (0.57-2.63) mg/dL Microbiology - Last 24 Hours (Table) 01/06/18 02:10 Urine Culture - Final Urine,Catheterized 01/05/18 18:48 Blood Culture - Preliminary Blood No Growth after 24 hours Assessment and Plan (1) Normocytic anemia Narrative/Plan: 1. Likely Secondary to acute blood loss, underlying production issue due to SIRS 2. Ok for EGD/Colonscopy as planned 3. Transfusions supportive if hgb less than 7, or symptomatic 4. lab work and has been ordered. The w/u is negative so far Current Visit: Yes Status: Acute Code(s): D64.9 - ANEMIA, UNSPECIFIED SNOMED Code(s): 737037422 (2) Leukocytosis (leucocytosis) Narrative/Plan: 1. I have reviewed the peripheral slide, there is evidence of monocytosis. By my review, possible blasts were noted very infrequently. WBC is reduced today with improved differential. Thus, this at this time, an acute leukemic process appears to be unlikely. We will await flow cytometry results. if negative for significant blast percentage, a chronic myeloproliferative disorder would be clinically more likely, given the significant monocytosis. in that situation, appropriate additional workup will be ordered, including possibly a bone marrow biopsy will be scheduled. 2. Continue to monitor CBC with Differential Daily 3. Patient and updated on current labs today and questions answered related to current status of additional testing for a finalized diagnosis which is still pending. Current Visit: Yes Status: Acute Code(s): D72.829 - ELEVATED WHITE BLOOD CELL COUNT, UNSPECIFIED SNOMED Code(s): 411661030 (3) Pancreatitis Narrative/Plan: Clinically improved, with increased appetite. Defer to IM, GI for continued management Current Visit: Yes Status: Acute Code(s): K85.90 - ACUTE PANCREATITIS WITHOUT NECROSIS OR INFECTION, UNSP SNOMED Code(s): 53976446
--- NOTE | 2018-01-08 12:04 | P.PN ---
Subjective Progress Note Date: 01/08/18 Principal diagnosis: Acute sepsis and septic shock and hypovolemic shock. 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 Patient was recently seen by his primary care physician with complaints of epigastric discomfort, and intermittent episodes of diarrhea. Patient was placed on viberzi, without much improvement. Patient has been losing weight but according to him he has been losing the weight on purpose and following a diet. Upon presentation to the ER , patient was noted to be febrile with a temp of 103. Patient is also noted to have anemia, and at one point he required fluid boluses, placed on small dose of levo fed for low blood pressure, and he is presently on 4 mcg/m. Received a unit of packed RBCs, seen by gastroenterology on consultation, and he is scheduled to undergo EGD and colonoscopy tomorrow. In addition to anemia with a hemoglobin of 7.1 on presentation, patient was noted to have thrombocytopenia with low platelets count of 48,000, bacteriuria and pyuria, elevated pancreatic enzymes including elevated amylase and lipase. Lactic acid was 1.2 initial renal profile showed a BUN of 19 and creatinine of 1.72, however follow-up creatinine today is 1.10. Considering the hypotension, the fever, the anemia, and elevated pancreatic enzymes, and positive Hemoccult stools, patient was admitted to the ICU, and I was asked to see him on consultation. CT of the abdomen and pelvis showed mild pancreatitis, some thickening of the bowel wall consistent with enteritis, and there was evidence of splenomegaly. Small gallstones were noted x-ray of the chest was negative. Patient denies any headaches, no blurred vision no dizziness, no shortness of breath, no chest pain , most of his symptoms are mostly GI as noted above. He describes some weight loss, fever, nausea vomiting and intermittent episodes of diarrhea. No aches and pains, no other significant symptoms besides sweats mentioned already. Patient was reevaluated today on 01/07/2018, feeling much better, patient is scheduled to undergo EGD and colonoscopy today. He was already seen by oncology for his abnormal peripheral smear, the oncologist does not seem to be too worried about the findings so far, however the pathology lab was more concerned. At any rate we are waiting for the cytometry results, and then based on that decision will be made whether the patient will need further diagnostic workup including bone marrow biopsy. In the meantime the patient continues to do clinically better, hemoglobin is about the same, WBC count is 5.5 platelets are 48,000. Basic metabolic profile is normal. Patient was reevaluated today on 01/04/2018, continues to have mid epigastric pain, no shortness of breath no cough no wheezing, no chest pain. No more hemodynamic instability. EGD and colonoscopy were nondiagnostic. No significant findings were noted CBC is relatively normal except for hemoglobin of 7.7 platelets remained low at 53,000s, basic metabolic profile is normal. Abnormal serum protein refuses was noted, however the patient is being followed by oncology. Objective - Vital Signs Vital signs: Vital Signs Temp 99.4 F 01/08/18 11:51 Pulse 94 01/08/18 11:51 Resp 18 01/08/18 11:51 BP 133/53 01/08/18 11:51 Pulse Ox 96 01/08/18 11:51 Intake & Output 01/07/18 01/08/18 01/08/18 18:59 06:59 18:59 Intake Total 2369 1280 0 Output Total 305 Balance 2064 1280 0 Weight 107.8 kg 106.8 kg Intake: IV 2110 980 Sodium Chloride 0.9% 1, 1560 980 000 ml @ 120 mls/hr IV . Q8H20M [facility] Rx#:[id number] Oral 300 0 Blood Product 259 Platelet Pheresis Acda1 259 Unit [id number] Output: Urine 305 Other: Voiding Method Indwelling Catheter Toilet Urinal # Voids 0 1 - Exam General appearance: Physical examination revealed a 57-year-old in no distress. Head: Atraumatic, normocephalic. HEENT: Moist mucous membranes, no neck masses, no JVD, no stridor, no cervical lymphadenopathy, no thyromegaly.. Neck: Supple, no neck masses, no lymphadenopathy. Heart: Normal S1 and S2, no S3 gallop. Lungs: Symmetrical chest expansion, clear bilaterally no crackles or rhonchi or wheezes Abdomen: Flat, soft, nontender, no megaly, no rebound, positive bowel sounds. Extremities: Normal skin color and turgor. No cyanosis, rash, ulceration, clubbing, or edema. Radial and pedal pulses are 2/4 bilaterally. Neurological: Alert and oriented 3, no gross focal deficit. Psychiatric: Normal mood and affect, sound judgment and insight. - Labs CBC & Chem 7: 01/08/18 02:18 01/08/18 02:18 Labs: Abnormal Lab Results - Last 24 Hours (Table) 01/07/18 01/07/18 01/08/18 Range/Units 04:10 04:10 02:18 RBC 2.68 L (4.30-5.90) m/uL Hgb 7.7 L (13.0-17.5) gm/dL Hct 25.1 L (39.0-53.0) % MCHC 30.8 L (31.0-37.0) g/dL RDW 17.1 H (11.5-15.5) % Plt Count 53 L (150-450) k/uL Lymphocytes # (Manual) 0.99 L (1.0-4.8) k/uL Metamyelocytes # (Man) 0.06 H (0) k/uL Myelocytes # (Manual) 0.06 H (0) k/uL Blast Cells # (Man) 0.17 H (0) k/uL Haptoglobin 456.0 H (31.2-198.0) mg/dL Glucose (74-99) mg/dL Calcium (8.4-10.2) mg/dL Total Protein (6.3-8.2) g/dL Total Protein (PEP) 4.6 L (6.2-8.2) g/dL Albumin (3.5-5.0) g/dL IgG1 386.0 L (405.0-1011.0) mg/dL Free [place] LC, Quant 2.54 H (0.33-1.94) mg/dL Free Lambda LC, Quant 2.96 H (0.57-2.63) mg/dL 01/08/18 Range/Units 02:18 RBC (4.30-5.90) m/uL Hgb (13.0-17.5) gm/dL Hct (39.0-53.0) % MCHC (31.0-37.0) g/dL RDW (11.5-15.5) % Plt Count (150-450) k/uL Lymphocytes # (Manual) (1.0-4.8) k/uL Metamyelocytes # (Man) (0) k/uL Myelocytes # (Manual) (0) k/uL Blast Cells # (Man) (0) k/uL Haptoglobin (31.2-198.0) mg/dL Glucose 131 H (74-99) mg/dL Calcium 7.3 L (8.4-10.2) mg/dL Total Protein 4.5 L (6.3-8.2) g/dL Total Protein (PEP) (6.2-8.2) g/dL Albumin 2.1 L (3.5-5.0) g/dL IgG1 (405.0-1011.0) mg/dL Free [place] LC, Quant (0.33-1.94) mg/dL Free Lambda LC, Quant (0.57-2.63) mg/dL Microbiology - Last 24 Hours (Table) 01/05/18 18:48 Blood Culture - Preliminary Blood No Growth after 48 hours 01/06/18 02:10 Urine Culture - Final Urine,Catheterized Assessment and Plan Assessment: Impression: 1 acute sepsis and septic shock, likely sources is either abdominal source/ colitis or related to urinary tract infection as noted by his abnormal urinalysis. Final cultures of the blood and urine have been negative. 2 possible hypovolemic shock secondary to pancreatitis however this is felt to be less likely. 3 acute thrombocytopenia secondary to sepsis or possibly secondary to a myeloproliferative disorder 4 acute anemia secondary to GI blood losses, most likely upper GI in nature. Patient is scheduled to undergo EGD and colonoscopy. 5 acute pancreatitis likely gallstones related. Patient does not drink any alcohol, and no history of hypertriglyceridemia. 6 history of irritable bowel syndrome and recurrent episodes of colitis. Possibility of inflammatory colitis is to be considered. 7 weight loss, most likely related to his chronic colitis. 8 abnormal peripheral smear suggestive of myeloproliferative disorder, final studies are pending. Patient is being followed by oncology. Recommendation: Continue present treatment plan as by different consultants on the case, we'll sign off for now and see the patient on when necessary basis. Time with Patient: Less than 30
[2018-01-08] MEDS: LOSARTAN 25 MG TAB PO SCH (12:11)
--- NOTE | 2018-01-08 15:33 | PN ---
PROGRESS NOTE This is a gentleman with a history of some pancreatitis, anemia of unclear etiology. Had a endoscopy yesterday without source of bleeding. I was asked to see him because of some ventricular ectopy. Echo revealed ejection fraction in the 45% range. However, there is some atypical septal motion also noted. I am recommending that we add a small dose of losartan, increase beta blockers. Continue other medications. Patient has significant other issues at this time. I would not recommend any active aggressive intervention cardiac-moralez other than beta blockers, losartan and a followup echo down the road. This morning he seems to be comfortable. Blood pressure is 130/80, pulse rate is about 84 per minute. S1, S2 heard normally. Lungs are clear. Abdomen and lower extremity exam are unchanged. Rest of physical examination is unchanged. MMODL / IJN: [id number] /
[2018-01-08] MEDS: LACTATED RINGERS 1,000 ML IV SCH (16:44)
[2018-01-08] MEDS: ACETAMINOPHEN TAB 325 MG TAB PO PRN (19:47)
[2018-01-08] MEDS: CITALOPRAM HYDROBROMIDE 10 MG TAB PO SCH (20:07)
[2018-01-08] MEDS: METOPROLOL TARTRATE 25 MG TAB PO SCH (20:07)
--- NOTE | 2018-01-08 22:16 | PN ---
PROGRESS NOTE DATE OF SERVICE: 01/08/2018 This 57-year-old gentleman with a past medical history of multiple medical problems was admitted with multiple symptomatology, including features of pancreatitis, abdominal pain as well as possibly GI bleed as well as UTI. Dr. Stinson performed EGD, colonoscopy yesterday. Multiple consultants, including Cardiology, Pulmonology following the patient closely. EGD, colonoscopy showed small sliding hiatal hernia with no evidence of esophagitis, complicated versus antral gastritis and the colon exam was normal; however, biopsies are pending at this time. There is no history of any chest pain or palpitation. PAST MEDICAL HISTORY: Reviewed. REVIEW OF SYSTEMS: CARDIOVASCULAR: As mentioned earlier. GI: As mentioned earlier. : No dysuria. NERVOUS: No numbness or weakness. CURRENT MEDICATIONS: Include: 1. Tylenol 650 every 6 hours p.r.n. 2. DuoNeb q.i.d. and p.r.n. 3. Celexa 10 mg q.h.s. and 20 mg p.o. daily. 4. Dilaudid 0.5 mg q.3 p.r.n. and 1 mg q.3. 5. Motrin 400 mg every 6 hours p.r.n. 6. Cozaar 25 mg p.o. daily. 7. Meropenem 1 g IV. 8. Lopressor. 9. Narcan. 10.Levophed previously. 11.Protonix. PHYSICAL EXAM: Patient is alert, oriented x3. Blood pressure 112/83, respiration 20, temperature is 97.4, pulse ox 94% on room air. HEENT: Conjunctivae normal. NECK: No jugular venous distention. CARDIOVASCULAR: S1, S2 muffled. RESPIRATORY: Breath sounds diminished in the bases. Bilateral scattered rhonchi and crackles. ABDOMEN: Soft, obese, nontender. No mass palpable. LEGS: No edema. No swelling. NERVOUS SYSTEM: Higher functions as mentioned earlier. Moves all 4 limbs. No focal motor or sensory deficits. LYMPHATIC: No lymphadenopathy in neck or axillae. SKIN: No ulcer, rash or bleeding. LABS: WBC 5.8, hemoglobin is 7.7, platelets of 53. Otherwise, calcium is 7.3 and albumin is 2.1. Free kappa light chain chronically is slightly high. ASSESSMENT: 1. Acute pancreatitis as well as severe sepsis and hypotension and septic shock, present on admission. 2. Urinary tract infection. 3. Abdominal pain for evaluation. 4. Anemia, rule out gastrointestinal bleed. 5. Hyponatremia. 6. Rule out chronic liver disease. 7. Increased creatinine with mild acute renal failure possibly secondary to prerenal factors, present on admission. 8. Increased amylase, lipase. 9. Increased WBC. 10.Anemia. 11.Irritable bowel syndrome. 12.Thrombocytopenia. 13.History of skin cancer. 14.History of depression. 15.High CA 19-9. RECOMMENDATIONS AND DISCUSSION: Recommend to continue current medical management. Continue monitoring and symptomatic treatment. Prognosis guarded because of multiple complex medical issues as detailed above. I would recommend continuing with current medications which include broad- spectrum IV antibiotics, follow the cultures and diet is being advanced and are also improving. We will cut down the IV rate. Repeat labs will be sought. Hematology/Oncology is also evaluating to rule out the possibly of hematologic malignancy. The overall prognosis is guarded because of multiple complex medical issues. Further recommendations to follow. MMODL / IJN: [id number] /
[2018-01-08 23:47] LABS: Hepatitis A Antibody IgM Non-Reactive (Non-Reactive); Hepatitis B Core IgM Non-Reactive (Non-Reactive)
[2018-01-09] MEDS: HYDROmorphone 0.5 MG/0.5 ML SYRINGE IVP PRN (05:44)
[2018-01-09 06:37] LABS: Anisocytosis Slight; HCT 27.4 % (39.0-53.0); HGB 8.4 gm/dL (13.0-17.5); Hypochromasia Slight; MCH 28.3 pg (25.0-35.0); MCHC 30.6 g/dL (31.0-37.0); MCV 92.2 fL (80.0-100.0); Mean Platelet Volume 11.9; RBC 2.97 m/uL (4.30-5.90); RDW 16.8 % (11.5-15.5); WBC 8.3 k/uL (3.8-10.6)
[2018-01-09 06:44] LABS: Platelet Count 52 k/uL (150-450)
[2018-01-09 06:55] LABS: ALT 26 U/L (21-72); AST 20 U/L (17-59); Albumin 2.1 g/dL (3.5-5.0); Alkaline Phosphatase 98 U/L (38-126); Anion Gap 10 mmol/L; Blood Urea Nitrogen 9 mg/dL (9-20); Calcium 7.3 mg/dL (8.4-10.2); Carbon Dioxide 21 mmol/L (22-30); Chloride 106 mmol/L (98-107); Cholesterol <50 mg/dL (<200); Glucose 149 mg/dL (74-99); HDL Cholesterol 16 mg/dL (40-60); Phosphorus 2.2 mg/dL (2.5-4.5); Potassium 3.6 mmol/L (3.5-5.1); Sodium 137 mmol/L (137-145); Total Bilirubin 0.8 mg/dL (0.2-1.3); Total Protein 4.6 g/dL (6.3-8.2); Triglycerides 60 mg/dL (<150)
[2018-01-09] MEDS: METOPROLOL TARTRATE 25 MG TAB PO SCH ×2 (07:26→20:29)
[2018-01-09] MEDS: LOSARTAN 25 MG TAB PO SCH (07:27)
[2018-01-09] MEDS: CITALOPRAM HYDROBROMIDE 20 MG TAB PO SCH (07:27)
[2018-01-09] MEDS: PANTOPRAZOLE 40 MG TABLET PO SCH (07:27)
[2018-01-09] MEDS: IPRATROPIUM-ALBUTEROL 3 ML NEB INHALATION SCH ×4 (08:07→19:36)
[2018-01-09 09:10] LABS: Band Neutrophils % 1 %; Lymphocytes # (M) 0.83 k/uL (1.0-4.8); Monocytes # (M) 1.66 k/uL (0-1.0); Neutrophils % (M) 64 %; Nucleated Red Blood Cells 0 /100 WBC (0-0); Total Cells Counted 200
[2018-01-09 09:11] LABS: Large Platelets Present
[2018-01-09] MEDS: MEROPENEM 1 GM in SODIUM CHLORIDE 0.9% 100 ML IVPB SCH ×2 (09:52→15:53)
[2018-01-09] MEDS: HYDROmorphone 4 MG TABLET PO PRN (13:08)
[2018-01-09] MEDS: SODIUM CHLORIDE 0.9% 1,000 ML IV SCH (15:54)
--- NOTE | 2018-01-09 18:39 | PN ---
PROGRESS NOTE DATE OF SERVICE: 01/09/2018 This 57-year-old gentleman was admitted with multiple medical history including acute pancreatitis, also complained of abdominal pain and distention. Patient also had some diarrhea. C diff is negative. No chest pain. No palpitations. No fever. PHYSICAL EXAM: Alert and oriented x3. Pulse 87, blood pressure 110/60, respiration 18, temp 98.2, pulse ox 98% room air. HEENT: Conjunctivae normal. Oral mucosa moist. NECK: No jugular venous distention. No carotid bruit. No lymph node enlargement. CARDIOVASCULAR: S1, S2. RESPIRATORY: Breath sounds diminished in the bases. A few scattered rhonchi. No crackles. ABDOMEN: Soft. Mild diffuse discomfort. No guarding. No rigidity. No mass palpable. LEGS: No edema. NERVOUS SYSTEM: No focal deficits. LABS: WBC 8.1, hemoglobin is 8.4, otherwise calcium 7.3, albumin is 2.1. ASSESSMENT: 1. Acute pancreatitis with severe sepsis and hypotension with septic shock, present on admission. 2. Urinary tract infection. 3. Possible irritable bowel syndrome. 4. Abdominal pain for evaluation. 5. Anemia rule out GI bleed. 6. Hyponatremia. 7. Rule out chronic liver disease. 8. Increased creatinine with mild acute renal failure possibly secondary to prerenal factors, present on admission. 9. Increased amylase, lipase. 10.Increased WBC. 11.Anemia. 12.Irritable bowel syndrome. 13.Thrombocytopenia. 14.History of skin cancer. 15.History of depression. 16.High CA19-9. RECOMMENDATIONS AND DISCUSSION I recommend to continue current management and closely follow with Cardiology as well as Gastroenterology. The patient has some diarrhea today. I would recommend C difficile and if it is negative, Imodium on a p.r.n. basis for irritable bowel syndrome. Otherwise the patient had multiple other abnormalities. The patient will need further evaluation and possibly referral to a tertiary care center, possibly as an outpatient for further evaluation and treatment. Otherwise continue the rest of the medications. Further recommendations to follow. C diff is negative. MMODL / IJN: [id number] /
[2018-01-09] MEDS ORDERED: ONDANSETRON 4 MG/2 ML VIAL IVP PRN (20:11)
[2018-01-09] MEDS: ACETAMINOPHEN TAB 325 MG TAB PO PRN (20:29)
[2018-01-09] MEDS: CITALOPRAM HYDROBROMIDE 10 MG TAB PO SCH (20:29)
--- NOTE | 2018-01-09 21:26 | PN ---
PROGRESS NOTE DATE OF SERVICE: 01/09/2018 REASON FOR FOLLOWUP VISIT: Acute gallstone pancreatitis. INTERVAL HISTORY: The patient is currently afebrile. He has been breathing comfortably. Complaining of abdominal pain, mostly in the epigastric area, seemed to be slightly worse with some oral intake. No nausea, no vomiting, no diarrhea. EXAMINATION: Blood pressure 125/60 with a pulse of 87, temperature 98.4. He is 92% on room air. General description is a middle-aged male lying in bed in no distress. Respiratory system unlabored breathing. Clear to auscultation anteriorly. Heart S1, S2. Regular rate and rhythm. Abdomen is soft, slightly distended, tender in the epigastric area. No guarding. EXTREMITIES: No edema of the feet. LABS: Hemoglobin 8.4, white count 8.3 with a BUN of 9, creatinine 0.77. Blood culture has been negative. DIAGNOSTIC IMPRESSION AND PLAN: The patient with acute gallstone pancreatitis in a patient who did have a fever and elevated white count with diagnosis of sepsis on admission. Blood culture negative so far. Currently on meropenem. We continue for now. Waiting for the condition to stabilize. if persistent pain may benefit from repeat CT to make sure no evidence of any complication from underlying pancreatitis. Continue supportive care. MMODL / IJN: [id number] / MTDD
[2018-01-10] MEDS: MEROPENEM 1 GM in SODIUM CHLORIDE 0.9% 100 ML IVPB SCH ×4 (00:10→23:20)
[2018-01-10 00:25] VITALS: RESP 16
[2018-01-10] MEDS: HYDROmorphone 4 MG TABLET PO PRN ×3 (01:53→12:14)
[2018-01-10] MEDS: ACETAMINOPHEN TAB 325 MG TAB PO PRN ×3 (02:43→23:25)
[2018-01-10] MEDS: SODIUM CHLORIDE 0.9% 1,000 ML IV SCH ×3 (03:44→23:25)
[2018-01-10 08:25] LABS: ALT 28 U/L (21-72); AST 29 U/L (17-59); Albumin 2.3 g/dL (3.5-5.0); Alkaline Phosphatase 91 U/L (38-126); Anion Gap 11 mmol/L; Blood Urea Nitrogen 12 mg/dL (9-20); Calcium 7.5 mg/dL (8.4-10.2); Carbon Dioxide 21 mmol/L (22-30); Chloride 107 mmol/L (98-107); Glucose 151 mg/dL (74-99); Magnesium 2.1 mg/dL (1.6-2.3); Sodium 139 mmol/L (137-145); Total Bilirubin 0.8 mg/dL (0.2-1.3); Total Protein 5.2 g/dL (6.3-8.2)
[2018-01-10 08:31] LABS: Potassium 4.1 mmol/L (3.5-5.1)
[2018-01-10] MEDS: PANTOPRAZOLE 40 MG TABLET PO SCH (08:43)
[2018-01-10] MEDS: CITALOPRAM HYDROBROMIDE 20 MG TAB PO SCH (08:43)
[2018-01-10] MEDS: METOPROLOL TARTRATE 25 MG TAB PO SCH ×2 (08:43→21:26)
[2018-01-10] MEDS: LOSARTAN 25 MG TAB PO SCH (08:43)
[2018-01-10] MEDS: IPRATROPIUM-ALBUTEROL 3 ML NEB INHALATION SCH ×4 (08:44→20:19)
[2018-01-10 09:09] LABS: Anisocytosis Slight; HCT 29.2 % (39.0-53.0); HGB 9.1 gm/dL (13.0-17.5); MCH 28.3 pg (25.0-35.0); MCHC 31.3 g/dL (31.0-37.0); MCV 90.4 fL (80.0-100.0); Mean Platelet Volume 12.8; RBC 3.23 m/uL (4.30-5.90)
[2018-01-10 09:17] LABS: Platelet Count 46 k/uL (150-450)
[2018-01-10 11:45] LABS: Albumin 1.94 g/dL (3.80-4.90); Gamma Globulin 0.74 g/dL (0.70-1.50)
[2018-01-10 12:25] LABS: Band Neutrophils % 3 %; Blast Cells # (M) 0.18 k/uL (0); Lymphocytes # (M) 0.36 k/uL (1.0-4.8); Myelocytes # (M) 0.18 k/uL (0); Myelocytes % 2 %; Neutrophils % (M) 64 %; Nucleated Red Blood Cells 0 /100 WBC (0-0); Poikilocytosis (M) Present; Promyelocytes # (M) 0.09 k/uL (0); Promyelocytes % 1 %; Total Cells Counted 200
[2018-01-10 12:26] LABS: Ovalocytes Present
[2018-01-10 12:27] LABS: Monocytes # (M) 2.25 k/uL (0-1.0)
[2018-01-10 14:47] VITALS: BMI 35.3
[2018-01-10] MEDS: HYDROmorphone 2 MG TAB PO PRN ×2 (18:30→21:26)
--- NOTE | 2018-01-10 18:49 | PN ---
PROGRESS NOTE DATE OF SERVICE: 01/10/2018 This 57-year-old gentleman who was admitted with acute pancreatitis, severe sepsis, is improving significantly. Patient still has significant abdominal pain at this time. Dr. Stinson recommended tertiary care evaluation possibly as an outpatient. Platelets are 46 at this time. The patient is being closely monitored. Past medical history reviewed. REVIEW OF SYSTEMS: CARDIOVASCULAR SYSTEM: No angina, palpitations. RESPIRATORY SYSTEM: As mentioned earlier. GI: As mentioned earlier. : No dysuria or retention NERVOUS SYSTEM: No numbness, weakness. CURRENT MEDICATIONS: Current medications are reviewed and include: 1. Tylenol 650 q.6. 2. DuoNeb q.i.d. and p.r.n. 3. Celexa 10 mg at bedtime. 4. Dilaudid. 5. Motrin 400 mg q.6 p.r.n. 6. Meropenem. 7. Lopressor. 8. Narcan. 9. Levophed drip previously. PHYSICAL EXAMINATION: Patient is alert, oriented x3. Pulse 94, blood pressure 111/55, respiration 16, temperature 98.2, pulse ox 93% on room air. HEENT: Conjunctivae normal. NECK: No jugular venous distention. CARDIOVASCULAR SYSTEM: S1, S2 muffled. RESPIRATORY SYSTEM: Breath sounds diminished at the bases. A few rhonchi. No crackles. ABDOMEN: Soft. Mild diffuse distention. LEGS: No edema. No swelling. NERVOUS SYSTEM: No focal deficit. LABS: WBC 9, hemoglobin 9.1. Other labs are noted. ASSESSMENT: 1. Acute pancreatitis with severe sepsis and hypotension with septic shock, present on admission. 2. Urinary tract infection. 3. Possible irritable bowel syndrome. 4. Thrombocytopenia. 5. Rule out chronic liver disease. 6. Abdominal pain for evaluation. 7. Anemia; rule out gastrointestinal bleed. 8. Hyponatremia. 9. Increased creatinine with mild acute renal failure, possibly secondary to prerenal factor, present on admission. 10.Increased amylase, lipase. 11.Increased white count. 12.Anemia. 13.Irritable bowel syndrome. 14.History of skin cancer. 15.History of depression. 16.High CA 19-9. RECOMMENDATIONS AND DISCUSSION: I recommend to continue current medication, continue with the monitoring, symptomatic treatment. Otherwise at this time we will monitor the patient closely. Closely follow with GI. Guarded prognosis because of multiple complex medical issues.. Further recommendations to follow. Discussed with the family. Continue with symptomatic treatment. Closely follow with multiple consultants. Further recommendations to follow. MMODL / IJN: [id number] /
[2018-01-10] MEDS: CITALOPRAM HYDROBROMIDE 10 MG TAB PO SCH (21:26)
--- NOTE | 2018-01-10 23:01 | PN ---
PROGRESS NOTE DATE OF SERVICE: 01/10/2018. REASON FOR FOLLOWUP: Gallstone pancreatitis. INTERVAL HISTORY: The patient is afebrile. He has been breathing comfortably. His abdominal pain has come down to 3/10 compared to 10/10 on presentation. Some nausea. No vomiting. Tolerating his diet. No diarrhea. EXAMINATION: Blood pressure is 111/55 with a pulse of 94, temperature 98.3, he is 93% on room air. GENERAL DESCRIPTION: A middle-aged male lying in bed in no distress. RESPIRATORY SYSTEM: Unlabored breathing. Clear to auscultation anteriorly. HEART: S1, S2. Regular rate and rhythm. ABDOMEN: Soft, mildly distended. No guarding or rigidity. EXTREMITIES: No edema of the feet. LABS: Hemoglobin 9.1, WBC 9.0. BUN of 12, creatinine 0.69. DIAGNOSTIC IMPRESSION AND PLAN: Patient with acute gallstone pancreatitis. The patient did have fever, elevated white count and hypertension on admission. He seemed to respond to the meropenem in view of his PENICILLIN ALLERGY. Currently, white count normal. Blood culture negative. The patient tolerated his diet and continues to improve. Hopefully to finish therapy with oral antibiotics. Continue supportive care. MMODL / IJN: [id number] / MTDD
[2018-01-11] MEDS: HYDROmorphone 2 MG TAB PO PRN ×3 (01:56→08:26)
[2018-01-11 07:47] VITALS: BP 129/58; PULSE 93
[2018-01-11 08:02] VITALS: TEMP 98.2
[2018-01-11 08:22] LABS: Anisocytosis Slight; HCT 29.7 % (39.0-53.0); HGB 9.3 gm/dL (13.0-17.5); MCH 28.5 pg (25.0-35.0); MCHC 31.5 g/dL (31.0-37.0); MCV 90.5 fL (80.0-100.0); Mean Platelet Volume 11.8; RBC 3.28 m/uL (4.30-5.90); RDW 16.9 % (11.5-15.5)
[2018-01-11 08:23] LABS: Platelet Count 58 k/uL (150-450)
[2018-01-11] MEDS: MEROPENEM 1 GM in SODIUM CHLORIDE 0.9% 100 ML IVPB SCH (08:26)
[2018-01-11 08:35] LABS: ALT 28 U/L (21-72); AST 19 U/L (17-59); Albumin 2.2 g/dL (3.5-5.0); Alkaline Phosphatase 92 U/L (38-126); Anion Gap 8 mmol/L; Blood Urea Nitrogen 13 mg/dL (9-20); Calcium 7.5 mg/dL (8.4-10.2); Carbon Dioxide 26 mmol/L (22-30); Chloride 103 mmol/L (98-107); Glucose 140 mg/dL (74-99); Sodium 137 mmol/L (137-145); Total Bilirubin 0.7 mg/dL (0.2-1.3); Total Protein 4.8 g/dL (6.3-8.2)
[2018-01-11] MEDS: LOSARTAN 25 MG TAB PO SCH (08:43)
[2018-01-11] MEDS: METOPROLOL TARTRATE 25 MG TAB PO SCH (08:43)
[2018-01-11] MEDS: PANTOPRAZOLE 40 MG TABLET PO SCH (08:43)
[2018-01-11] MEDS: CITALOPRAM HYDROBROMIDE 20 MG TAB PO SCH (08:48)
[2018-01-11] MEDS: IPRATROPIUM-ALBUTEROL 3 ML NEB INHALATION SCH ×2 (09:10→11:50)
[2018-01-11 10:55] LABS: Methylmalonic Acid 0.51 umol/L (<0.40)
[2018-01-11 11:02] LABS: Band Neutrophils % 6 %; Metamyelocytes % 1 %; Myelocytes % 1 %; Neutrophils % (M) 61 %; Nucleated Red Blood Cells 1 /100 WBC (0-0); Promyelocytes % 1 %; Total Cells Counted 200
[2018-01-11 11:03] LABS: Lymphocytes # (M) 0.49 k/uL (1.0-4.8); Monocytes # (M) 2.45 k/uL (0-1.0); WBC 9.8 k/uL (3.8-10.6)
[2018-01-11 11:05] LABS: Poikilocytosis (M) Present; Polychromasia Present
[2018-01-11 11:06] LABS: RBC Fragments Present; Tear Drop Cells Present
[2018-01-11] MEDS ORDERED: CEFUROXIME 250 MG TAB PO STA (12:10)
--- NOTE | 2018-01-11 14:05 | PN ---
PROGRESS NOTE DATE OF SERVICE: 01/11/2018 REASON FOR FOLLOWUP: Acute gallstone pancreatitis. INTERVAL HISTORY: The patient was seen on rounds this morning. The patient has been afebrile. He has been sleeping comfortably. Abdominal pain has improved down to about 2/10. No nausea, vomiting. He has been tolerating diet. No diarrhea. PHYSICAL EXAMINATION: Blood pressure 129/58 with a pulse of 93, temperature 98.2. General description is a middle-aged male, lying in bed in no distress. RESPIRATORY SYSTEM: Unlabored breathing, clear to auscultation anteriorly. HEART: S1, S2. Regular rate and rhythm. ABDOMEN: Soft, no tenderness. No guarding or rigidity. LABS: Hemoglobin 9.8, white count of 9.8 with a BUN of 13, creatinine 0.64. Blood culture has been negative. DIAGNOSTIC IMPRESSION AND PLAN: Patient with acute gallstone pancreatitis. Patient did have fever and white count on admission that has resolved. Blood culture has been negative. Patient did have history of PENICILLIN allergy. He was given a dose of Ceftin, which he tolerated. Discharge antibiotic in the form of Ceftin, Flagyl for about a week. Advise if any worsening abdominal pain with fever to let us know right away. Family present at bedside, their questions were answered. MMODL / IJN: [id number] /
--- NOTE | 2018-01-11 17:50 | P.PN ---
Subjective Progress Note Date: 01/11/18 Principal diagnosis: Anemia, THrombocytopenia, Monocytosis Patient seen and examined in follow-up, daughter at bedside, reviewed labs with patient and results of peripheral flow. CBC appears stable at this time. He complains of EPigastric and abdominal pain, status post EGD and colonoscopy. No acute signs or symptoms of bleeding Objective - Vital Signs Vital signs: Vital Signs Temp 98.2 F 01/11/18 07:00 Pulse 93 01/11/18 08:00 Resp 16 01/11/18 08:00 BP 129/58 01/11/18 07:00 Pulse Ox 95 01/10/18 21:44 Intake & Output 01/10/18 01/11/18 01/11/18 18:59 06:59 18:59 Intake Total 590 780 Balance 590 780 Weight 108.5 kg 115 kg Intake: Intake, IV Titration 590 Amount Meropenem 1 gm In Sodium 100 Chloride 0.9% 100 ml @ 200 mls/hr IVPB Q8HR FANTASMA Rx#:[id number] Sodium Chloride 0.9% 1, 490 000 ml @ 70 mls/hr IV . [id number] FANTASMA Rx#:[id number] Oral 780 Other: Voiding Method Toilet Toilet Toilet # Voids 1 - Constitutional General appearance: Present: no acute distress, obese - EENT Eyes: Present: dentition normal ENT: Present: NA/AT, normal oropharynx - Respiratory Respiratory: bilateral: CTA (No increased respiratory effort) - Cardiovascular Rhythm: regular - Gastrointestinal General gastrointestinal: Present: normal bowel sounds, soft Localized gastrointestinal: tender: diffuse, guarding: diffuse, rebound: diffuse - Neurologic Neurologic Comment(s): NO focal defects - Musculoskeletal Musculoskeletal: Present: generalized weakness - Psychiatric Psychiatric: Present: A&O x's 3, appropriate affect, intact judgment & insight - Labs CBC & Chem 7: 01/11/18 07:24 01/11/18 07:24 Labs: Abnormal Lab Results - Last 24 Hours (Table) 01/07/18 01/11/18 01/11/18 Range/Units 04:10 07:24 07:24 RBC 3.28 L (4.30-5.90) m/uL Hgb 9.3 L (13.0-17.5) gm/dL Hct 29.7 L (39.0-53.0) % RDW 16.9 H (11.5-15.5) % Plt Count 58 L (150-450) k/uL Lymphocytes # (Manual) 0.49 L (1.0-4.8) k/uL Monocytes # (Manual) 2.45 H (0-1.0) k/uL Metamyelocytes # (Man) 0.10 H (0) k/uL Myelocytes # (Manual) 0.10 H (0) k/uL Promyelocytes # (Man) 0.10 H (0) k/uL Blast Cells # (Man) 0.20 H (0) k/uL Nucleated RBCs 1 H (0-0) /100 WBC Creatinine 0.64 L (0.66-1.25) mg/dL Glucose 140 H (74-99) mg/dL Calcium 7.5 L (8.4-10.2) mg/dL Total Protein 4.8 L (6.3-8.2) g/dL Albumin 2.2 L (3.5-5.0) g/dL Methylmalonic Acid 0.51 H (<0.40) umol/L Microbiology - Last 24 Hours (Table) 01/05/18 18:48 Blood Culture - Preliminary Blood No Growth after 120 hours Assessment and Plan (1) Normocytic anemia Narrative/Plan: 1. Likely Secondary to acute blood loss, underlying production issue due to SIRS 2. Ok for EGD/Colonscopy as planned 3. Transfusions supportive if hgb less than 7, or symptomatic 4. lab work and has been ordered. The w/u is negative so far 5. We will set up bone marrow biopsy as an outpatient, patient would not like to do while still in hospital, he is anxious for discharge and complains of pain. I will set up through our office. Status: Acute Code(s): D64.9 - ANEMIA, UNSPECIFIED SNOMED Code(s): 675939095 (2) Leukocytosis (leucocytosis) Narrative/Plan: 1. I have reviewed the peripheral slide, there is evidence of monocytosis. By my review, possible blasts were noted very infrequently. WBC is reduced today with improved differential. Thus, this at this time, an acute leukemic process appears to be unlikely. We will await flow cytometry results. if negative for significant blast percentage, a chronic myeloproliferative disorder would be clinically more likely, given the significant monocytosis. in that situation, appropriate additional workup will be ordered, including possibly a bone marrow biopsy will be scheduled. 2. Continue to monitor CBC with Differential Daily 3. Patient updated on the results of todays CBC and Recent FLow studies Status: Acute Code(s): D72.829 - ELEVATED WHITE BLOOD CELL COUNT, UNSPECIFIED SNOMED Code(s): 212858423 (3) Pancreatitis Status: Acute Code(s): K85.90 - ACUTE PANCREATITIS WITHOUT NECROSIS OR INFECTION, UNSP SNOMED Code(s): 78079415
--- NOTE | 2018-01-11 23:56 | DS ---
DISCHARGE SUMMARY FINAL DIAGNOSES: 1. Acute pancreatitis with severe sepsis and hypotension with septic shock, present on admission. 2. Urinary tract infection. 3. Possible irritable bowel syndrome. 4. Thrombocytopenia. 5. Rule out chronic liver disease. 6. Abdominal pain for evaluation. 7. Anemia; rule out gastrointestinal bleed. 8. Hyponatremia. 9. Increased creatinine with mild acute renal failure, possibly secondary to prerenal factor, present on admission. 10.Increased amylase and lipase. 11.Increased white count. 12.Anemia. 13.Irritable bowel syndrome. 14.History of skin cancer. 15.History of depression. 16.High CA 19-9. DISCHARGE DISPOSITION: The patient is discharged in stable condition with guarded prognosis. The patient is stable but overall prognosis is extremely guarded. Total time taken 35 minutes. HISTORY OF PRESENT ILLNESS: This 57-year-old gentleman with a past medical history of multiple medical problems was admitted with acute pancreatitis, sepsis and multiple other medical problems. The patient was treated symptomatically. The patient was on broad-spectrum IV antibiotics. Multiple consultants including Hematology, Oncology, Infectious Disease, Cardiology and pulmonology saw the patient during hospitalization. The patient improved significantly. Endoscope did not show any acute abnormality except gastritis and recommended Ceftin and Flagyl for [address] Shea recommended acute unlikely results are awaited. Chronic proliferative disorder is a possibility and Dr. Shea would like to followup the patient in outpatient setting. Otherwise, the patient improved significantly. Vitals are stable. CARDIOVASCULAR: S1 and S2 muffled. ABDOMEN: Soft. NERVOUS SYSTEM: No focal deficits. I also discussed the case with Dr. Stinson who recommended outpatient evaluation at [facility] also. DISCHARGE ADVICE AND MEDICATIONS: 1. Diet is cardiac. 2. Activity limited until followup. 3. Followup with Dr. St in 2-3 days. 4[address] Followup with Dr. Shea as advised. 5. Followup with liver clinic at [facility] as advised. 6. Followup with Dr. Stinson as advised. Medications will be as follows: 1. Ceftin 500 mg p.o. b.i.d. for 1 week. 2. Celexa 10 mg q.h.s. 3. Celexa 20 mg p.o. daily. 4. Hold Viberzi for now. 5. Motrin 400 mg q.6h p.r.n. 6. Cozaar 25 mg p.o. daily. 7. Lopressor 25 mg p.o. b.i.d. 8. Flagyl 500 mg q.8 hours for 7 days/. 9. Protonix 40 mg p.o. daily. PARVEZ / CHELLYN: [id number] / MTDD
== END 2018-01-11 12:55 | disposition home or self-care (01) | DRG 871 ==
LOC: EC 18:26 → 6SEL 20:18 → 6ICU 01-06 00:07 → 6SEL 01-07 12:52 → 5MS5E 01-09 06:41
PROVIDERS: ADMIT Hospitalist; ATTEND Hospitalist
PROC: 30233N1 Transfusion of Nonautologous Red Blood Cells into Peripheral Vein, Percutaneous Approach (ICD-10-PCS; principal; 2018-01-06)
PROC: 0DB68ZX Excision of Stomach, Via Natural or Artificial Opening Endoscopic, Diagnostic (ICD-10-PCS; 2018-01-07)
PROC: 0DBB8ZX Excision of Ileum, Via Natural or Artificial Opening Endoscopic, Diagnostic (ICD-10-PCS; 2018-01-07)
PROC: 30233R1 Transfusion of Nonautologous Platelets into Peripheral Vein, Percutaneous Approach (ICD-10-PCS; 2018-01-07 08:25)
DX: A41.9 Sepsis, unspecified organism (principal); R65.21 Severe sepsis with septic shock; R57.1 Hypovolemic shock; N17.9 Acute kidney failure, unspecified; K85.10 Biliary acute pancreatitis without necrosis or infection; E87.1 Hypo-osmolality and hyponatremia; D68.9 Coagulation defect, unspecified; D62 Acute posthemorrhagic anemia; D69.6 Thrombocytopenia, unspecified; N39.0 Urinary tract infection, site not specified; I31.9 Disease of pericardium, unspecified; F32.9 Major depressive disorder, single episode, unspecified; K58.0 Irritable bowel syndrome with diarrhea; R63.4 Abnormal weight loss; I10 Essential (primary) hypertension; D72.821 Monocytosis (symptomatic); R16.1 Splenomegaly, not elsewhere classified; I49.3 Ventricular premature depolarization; K44.9 Diaphragmatic hernia without obstruction or gangrene; K29.60 Other gastritis without bleeding; Z85.828 Personal history of other malignant neoplasm of skin; Z87.891 Personal history of nicotine dependence; Z79.899 Other long term (current) drug therapy; Z79.1 Long term (current) use of non-steroidal anti-inflammatories (NSAID); Z88.0 Allergy status to penicillin
CPT/HCPCS: 36415; 43239; 45380; 71045; 71046; 74177; 76705; 80048; 80053; 80061; 80074; 80306; 81001; 82150; 82272; 82550; 82553; 82607; 82728; 82747; 82787; 83010; 83540; 83550; 83605; 83690; 83735; 83883; 83921; 84100; 84165; 84478; 84484; 85025; 85045; 85384; 85610; 85730; 86038; 86301; 86850; 86900; 86901; 86920; 87040; 87086; 87324; 88305; 88342; 93005; 93306; 94640; 96361; 96374; 96375; 99285

== ENCOUNTER 2018-01-27 14:41 | Inpatient (IN) | payer OTHER ==
[2018-01-27 16:07] LABS: Appearance,Urine Cloudy (Clear); Bacteria,Urine Rare /hpf; Bilirubin,Urine 1+ (Negative); Blood,Urine Trace (Negative); Color,Urine Yellow; Glucose,Urine (UA) Negative (Negative); Hyaline Casts,Urine 27 /lpf (0-2); Ketones,Urine Negative (Negative); Leukocyte Esterase,Urine Negative (Negative); Mucus,Urine Many /hpf; Nitrite,Urine Negative (Negative); Protein,Urine 1+ (Negative); RBC,Urine 1 /hpf (0-5); Specific Gravity,Urine 1.025 (1.001-1.035); Squamous Epithelial Cell,Urine 1 /hpf (0-4); WBC,Urine 4 /hpf (0-5)
[2018-01-27] MEDS ORDERED: ACETAMINOPHEN IV (For NPO) 1,000 MG in EMPTY BAG 1 BAG IVPB STA (16:24)
[2018-01-27] MEDS ORDERED: IBUPROFEN IV 600 MG in SODIUM CHLORIDE 0.9% 250 ML IV STA (16:24)
--- NOTE | 2018-01-27 16:29 | ED ---
General Adult HPI - General Chief complaint: Recheck/Abnormal Lab/Rx Stated complaint: poss sepsis Time Seen by Provider: 01/27/18 15:00 Source: patient, RN notes reviewed Mode of arrival: wheelchair Limitations: no limitations - History of Present Illness Initial comments: This a 57-year-old male who presents emergency Department complaining of epigastric abdominal pain and went to see his primary medical care doctor and was told that his white count was elevated and he needs to come to the emergency department. Patient states recently he was admitted to the hospital he had a fever and he was told he had pancreatitis he was discharged home but ever since then he continues to have epigastric abdominal pain and is very nauseated he only vomits when he takes pills but he does not eat much because he is so nauseated. Patient states continues to have diarrhea as well. Patient denies any chest pain difficulty breathing shortness of breath. Patient denies abdominal pain. Patient states overall he feels very weak and fatigued. - Related Data Home Medications Medication Instructions Recorded Confirmed Citalopram Hydrobromide 10 mg PO HS 01/05/18 01/27/18 [Citalopram HBr] Citalopram Hydrobromide 20 mg PO DAILY 01/05/18 01/27/18 [Citalopram HBr] Acetaminophen Tab [Tylenol Tab] 1,000 mg PO Q6HR PRN 01/27/18 01/27/18 Ferrous Sulfate [Iron] 325 mg PO DAILY 01/27/18 01/27/18 HYDROcodone/APAP 5-325MG [[place] 1 tab PO Q6H PRN 01/27/18 01/27/18 5-325] Losartan [Cozaar] 25 mg PO DAILY PRN 01/27/18 01/27/18 Metoprolol Tartrate [Lopressor] 25 mg PO BID PRN 01/27/18 01/27/18 Potassium Chloride ER [K-Dur 10] 10 meq PO BID 01/27/18 01/27/18 Previous Rx's Medication Instructions Recorded Pantoprazole [Protonix] 40 mg PO DAILY #30 tablet. 01/11/18 Allergies Allergy/AdvReac Type Severity Reaction Status Date / Time Penicillins Allergy Swelling Verified 01/27/18 16:36 Review of Systems ROS Statement: Those systems with pertinent positive or pertinent negative responses have been documented in the HPI. ROS Other: All systems not noted in ROS Statement are negative. Past Medical History Additional Past Medical History / Comment(s): IBS, skin cancer, pancreatitis History of Any Multi-Drug Resistant Organisms: None Reported Additional Past Surgical History / Comment(s): Skin cancer removal Past Anesthesia/Blood Transfusion Reactions: No Reported Reaction Past Psychological History: Depression Smoking Status: Former smoker Past Alcohol Use History: None Reported Past Drug Use History: None Reported General Exam - General Exam Comments Initial Comments: GENERAL: Patient is well-developed and well-nourished. Patient is nontoxic and well- hydrated and is in mild distress. ENT: Neck is soft and supple. No significant lymphadenopathy is noted. Oropharynx is clear. Moist mucous membranes. Neck has full range of motion without eliciting any pain. EYES: The sclera were anicteric and conjunctiva were pink and moist. Extraocular movements were intact and pupils were equal round and reactive to light. Eyelids were unremarkable. PULMONARY: Unlabored respirations. Good breath sounds bilaterally. No audible rales rhonchi or wheezing was noted. CARDIOVASCULAR: There is a regular rate and rhythm without any murmurs gallops or rubs. Femoral pulses are equal bilaterally ABDOMEN: Mild epigastric abdominal pain. No palpable organomegaly was noted. There is no palpable pulsatile mass. SKIN: Skin is very pale NEUROLOGIC: Patient is alert and oriented x3. Cranial nerves II through XII are grossly intact. Motor and sensory are also intact. Normal speech, volume and content. Symmetrical smile. MUSCULOSKELETAL: Normal extremities with adequate strength and full range of motion. No lower extremity swelling or edema. No calf tenderness. LYMPHATICS: No significant lymphadenopathy is noted PSYCHIATRIC: Normal psychiatric evaluation. Limitations: no limitations Course Vital Signs 01/27/18 01/27/18 14:58 16:38 Temperature 98 F 100.6 F H Pulse Rate 104 H 96 Respiratory 18 19 Rate Blood Pressure 115/61 122/57 O2 Sat by Pulse 100 100 Oximetry Medical Decision Making - Lab Data Result diagrams: 01/27/18 16:22 01/27/18 16:22 Lab Results 01/27/18 01/27/18 01/27/18 Range/Units 13:54 16:22 16:22 WBC (3.8-10.6) k/uL RBC (4.30-5.90) m/uL Hgb (13.0-17.5) gm/dL Hct (39.0-53.0) % MCV (80.0-100.0) fL MCH (25.0-35.0) pg MCHC (31.0-37.0) g/dL RDW (11.5-15.5) % Plt Count (150-450) k/uL PT 11.7 (9.0-12.0) sec INR 1.2 H (<1.2) APTT 20.6 L (22.0-30.0) sec Sodium (137-145) mmol/L Potassium (3.5-5.1) mmol/L Chloride (98-107) mmol/L Carbon Dioxide (22-30) mmol/L Anion Gap mmol/L BUN (9-20) mg/dL Creatinine (0.66-1.25) mg/dL Est GFR (CKD-EPI)AfAm (>60 ml/min/1.73 sqM) Est GFR (CKD-EPI)NonAf (>60 ml/min/1.73 sqM) Glucose (74-99) mg/dL Plasma Lactic Acid Tommie (0.7-2.0) mmol/L Calcium (8.4-10.2) mg/dL Total Bilirubin (0.2-1.3) mg/dL AST (17-59) U/L ALT (21-72) U/L Alkaline Phosphatase (38-126) U/L Total Creatine Kinase <20 L (55-170) U/L CK-MB (CK-2) <0.2 (0.0-2.4) ng/mL CK-MB (CK-2) Rel Index Troponin I <0.012 (0.000-0.034) ng/mL Total Protein (6.3-8.2) g/dL Albumin (3.5-5.0) g/dL Amylase (30-110) U/L Lipase (23-300) U/L Urine Color Yellow Urine Appearance Cloudy (Clear) Urine pH 6.0 (5.0-8.0) Ur Specific Mobile 1.025 (1.001-1.035) Urine Protein 1+ H (Negative) Urine Glucose (UA) Negative (Negative) Urine Ketones Negative (Negative) Urine Blood Trace H (Negative) Urine Nitrite Negative (Negative) Urine Bilirubin 1+ H (Negative) Urine Urobilinogen 2.0 (<2.0) mg/dL Ur Leukocyte Esterase Negative (Negative) Urine RBC 1 (0-5) /hpf Urine WBC 4 (0-5) /hpf Ur Squamous Epith Cells 1 (0-4) /hpf Urine Bacteria Rare H (None) /hpf Hyaline Casts 27 H (0-2) /lpf Urine Mucus Many H (None) /hpf Influenza Type A RNA (Not Detectd) Influenza Type B (PCR) (Not Detectd) 01/27/18 01/27/18 01/27/18 Range/Units 16:22 16:22 16:22 WBC 13.8 H (3.8-10.6) k/uL RBC 2.34 L (4.30-5.90) m/uL Hgb 6.7 L* D (13.0-17.5) gm/dL Hct 20.1 L (39.0-53.0) % MCV 85.8 D (80.0-100.0) fL MCH 28.6 (25.0-35.0) pg MCHC 33.4 (31.0-37.0) g/dL RDW 17.9 H (11.5-15.5) % Plt Count 47 L* (150-450) k/uL PT (9.0-12.0) sec INR (<1.2) APTT (22.0-30.0) sec Sodium 136 L (137-145) mmol/L Potassium 3.5 (3.5-5.1) mmol/L Chloride 98 (98-107) mmol/L Carbon Dioxide 27 (22-30) mmol/L Anion Gap 11 mmol/L BUN 15 (9-20) mg/dL Creatinine 0.77 (0.66-1.25) mg/dL Est GFR (CKD-EPI)AfAm >90 (>60 ml/min/1.73 sqM) Est GFR (CKD-EPI)NonAf >90 (>60 ml/min/1.73 sqM) Glucose 128 H (74-99) mg/dL Plasma Lactic Acid Tommie 1.4 (0.7-2.0) mmol/L Calcium 8.3 L (8.4-10.2) mg/dL Total Bilirubin 0.9 (0.2-1.3) mg/dL AST 14 L (17-59) U/L ALT 21 (21-72) U/L Alkaline Phosphatase 121 (38-126) U/L Total Creatine Kinase (55-170) U/L CK-MB (CK-2) (0.0-2.4) ng/mL CK-MB (CK-2) Rel Index Troponin I (0.000-0.034) ng/mL Total Protein 5.7 L (6.3-8.2) g/dL Albumin 2.8 L (3.5-5.0) g/dL Amylase 84 (30-110) U/L Lipase 458 H (23-300) U/L Urine Color Urine Appearance (Clear) Urine pH (5.0-8.0) Ur Specific [place] (1.001-1.035) Urine Protein (Negative) Urine Glucose (UA) (Negative) Urine Ketones (Negative) Urine Blood (Negative) Urine Nitrite (Negative) Urine Bilirubin (Negative) Urine Urobilinogen (<2.0) mg/dL Ur Leukocyte Esterase (Negative) Urine RBC (0-5) /hpf Urine WBC (0-5) /hpf Ur Squamous Epith Cells (0-4) /hpf Urine Bacteria (None) /hpf Hyaline Casts (0-2) /lpf Urine Mucus (None) /hpf Influenza Type A RNA (Not Detectd) Influenza Type B (PCR) (Not Detectd) 01/27/18 Range/Units 16:42 WBC (3.8-10.6) k/uL RBC (4.30-5.90) m/uL Hgb (13.0-17.5) gm/dL Hct (39.0-53.0) % MCV (80.0-100.0) fL MCH (25.0-35.0) pg MCHC (31.0-37.0) g/dL RDW (11.5-15.5) % Plt Count (150-450) k/uL PT (9.0-12.0) sec INR (<1.2) APTT (22.0-30.0) sec Sodium (137-145) mmol/L Potassium (3.5-5.1) mmol/L Chloride (98-107) mmol/L Carbon Dioxide (22-30) mmol/L Anion Gap mmol/L BUN (9-20) mg/dL Creatinine (0.66-1.25) mg/dL Est GFR (CKD-EPI)AfAm (>60 ml/min/1.73 sqM) Est GFR (CKD-EPI)NonAf (>60 ml/min/1.73 sqM) Glucose (74-99) mg/dL Plasma Lactic Acid Tommie (0.7-2.0) mmol/L Calcium (8.4-10.2) mg/dL Total Bilirubin (0.2-1.3) mg/dL AST (17-59) U/L ALT (21-72) U/L Alkaline Phosphatase (38-126) U/L Total Creatine Kinase (55-170) U/L CK-MB (CK-2) (0.0-2.4) ng/mL CK-MB (CK-2) Rel Index Troponin I (0.000-0.034) ng/mL Total Protein (6.3-8.2) g/dL Albumin (3.5-5.0) g/dL Amylase (30-110) U/L Lipase (23-300) U/L Urine Color Urine Appearance (Clear) Urine pH (5.0-8.0) Ur Specific [place] (1.001-1.035) Urine Protein (Negative) Urine Glucose (UA) (Negative) Urine Ketones (Negative) Urine Blood (Negative) Urine Nitrite (Negative) Urine Bilirubin (Negative) Urine Urobilinogen (<2.0) mg/dL Ur Leukocyte Esterase (Negative) Urine RBC (0-5) /hpf Urine WBC (0-5) /hpf Ur Squamous Epith Cells (0-4) /hpf Urine Bacteria (None) /hpf Hyaline Casts (0-2) /lpf Urine Mucus (None) /hpf Influenza Type A RNA Not Detected (Not Detectd) Influenza Type B (PCR) Not Detected (Not Detectd) Disposition Clinical Impression: Anemia, Diarrhea, Generalized weakness, Thrombocytopenia Disposition: ADMITTED IP TO THIS HOSP Referrals: Nathan St MD [Primary Care Provider] - 1-2 days Time of Disposition: 17:58
[2018-01-27] MEDS ORDERED: SODIUM CHLORIDE 0.9% 500 ML IV SCH (16:30)
[2018-01-27 17:02] LABS: INR 1.2 (<1.2); Partial Thromboplastin Time 20.6 sec (22.0-30.0); Prothrombin Time 11.7 sec (9.0-12.0)
[2018-01-27 17:05] LABS: ALT 21 U/L (21-72); AST 14 U/L (17-59); Albumin 2.8 g/dL (3.5-5.0); Alkaline Phosphatase 121 U/L (38-126); Amylase 84 U/L (30-110); Anion Gap 11 mmol/L; Blood Urea Nitrogen 15 mg/dL (9-20); Calcium 8.3 mg/dL (8.4-10.2); Carbon Dioxide 27 mmol/L (22-30); Chloride 98 mmol/L (98-107); Creatine Kinase <20 U/L (55-170); Glucose 128 mg/dL (74-99); Lipase 458 U/L (23-300); Potassium 3.5 mmol/L (3.5-5.1); Sodium 136 mmol/L (137-145); Total Bilirubin 0.9 mg/dL (0.2-1.3); Total Protein 5.7 g/dL (6.3-8.2)
[2018-01-27 17:08] LABS: Anisocytosis Slight; HCT 20.1 % (39.0-53.0); MCH 28.6 pg (25.0-35.0); MCHC 33.4 g/dL (31.0-37.0); MCV 85.8 fL (80.0-100.0); Mean Platelet Volume 13.4; RBC 2.34 m/uL (4.30-5.90); RDW 17.9 % (11.5-15.5)
[2018-01-27 17:11] LABS: HGB 6.7 gm/dL (13.0-17.5)
[2018-01-27 17:12] LABS: Platelet Count 47 k/uL (150-450)
[2018-01-27 17:17] LABS: Creatine Kinase MB <0.2 ng/mL (0.0-2.4); Troponin I <0.012 ng/mL (0.000-0.034)
--- NOTE | 2018-01-27 17:37 | XR ---
EXAMINATION TYPE: XR chest 2V DATE OF EXAM: 01/27/2018 COMPARISON: 01/06/2018 HISTORY: Fever TECHNIQUE: Frontal and lateral views of the chest are obtained. FINDINGS: Heart and mediastinum are normal. Lungs are clear of infiltrate. There are small calcified granulomata in the right lung. There is no pleural effusion. Bony thorax is intact. There are chest leads. IMPRESSION: No active cardiopulmonary disease. Normal heart.
[2018-01-27] MEDS ORDERED: SODIUM CHLORIDE 0.9% 1,000 ML IV ONE (17:58)
[2018-01-27] MEDS ORDERED: IOHEXOL 350 MG/ML 25 ML BOTTLE (ORAL USE) PO PRN (20:12)
[2018-01-27] MEDS ORDERED: cefTRIAXone IN SWFI 1,000 MG/10 ML SYRINGE IVP STA (20:17)
[2018-01-27] MEDS ORDERED: CITALOPRAM HYDROBROMIDE 10 MG TAB PO SCH (21:00)
--- NOTE | 2018-01-27 21:06 | HP ---
HISTORY AND PHYSICAL CHIEF COMPLAINTS: Abdominal pain, diarrhea, high white count and anemia. HISTORY OF PRESENT ILLNESS: This 57-year-old gentleman with a past medical history of multiple medical problems was recently admitted to [facility] with features of pancreatitis with sepsis as well as anemia. The patient was suspected to chronic liver disease. The patient also had EGD and colonoscopy by Dr. Stinson. EGD showed small sliding hiatal hernia with no esophagitis or complicated reflux disease, antral gastritis. Colonic exam did not show any acute abnormality. An appointment at the liver clinic is pending at this time. The patient is currently complaining of continued abdominal pain as well as diarrhea. The white count was found to be elevated. Hemoglobin is low. The patient was taken to [facility] and admitted for further evaluation and treatment. Hemoglobin is 6.7. Transfusion will be arranged. The patient also had thrombocytopenia. During the previous admission, Dr. Shea was also consulted to rule out the possibility of a hematological process. PAST MEDICAL HISTORY: 1. History of pancreatitis. 2. IBS. 3. Skin cancer. 4. History of depression. HOME MEDICATIONS: 1. Iron sulfate 325 mg daily. 2. Celexa 10 mg at bedtime. 3. Tylenol 1000 mg q.6 p.r.n. 4. K-Dur 10 mEq p.o. b.i.d. 5. Lopressor 25 mg b.i.d. p.r.n. 6. Cozaar 25 mg daily p.r.n. 7. Kyle 5 mg q.6 p.r.n. 8. Protonix 40 mg p.o. daily. ALLERGIES: PENICILLIN. FAMILY HISTORY: No history of heart disease or strokes in the family. SOCIAL HISTORY: Previous history of smoking. No history of alcohol intake. REVIEW OF SYSTEMS: ENT: No diminished hearing. No diminished vision. CARDIOVASCULAR SYSTEM: No angina, palpitations. RESPIRATORY SYSTEM: No cough, hemoptysis. GI: As mentioned earlier. : As mentioned earlier. NERVOUS SYSTEM: No numbness, weakness. ALLERGY/IMMUNOLOGY: No asthma, hayfever. MUSCULOSKELETAL: As mentioned earlier. HEMATOLOGY/ONCOLOGY: No history of anemia. ENDOCRINE: No history of diabetes, hypothyroidism. CONSTITUTIONAL: As mentioned earlier. DERMATOLOGY: Negative. RHEUMATOLOGY: Negative. PSYCHIATRY: As mentioned earlier. PHYSICAL EXAMINATION: Alert and oriented x3. Pulse 100, blood pressure 95/49, respiration 18, temperature 98.8, pulse ox 96% on room air. T-max 100.6. HEENT: Conjunctivae pale. Oral mucosa moist. NECK: No jugular venous distention. No carotid bruit. No lymph node enlargement. CARDIOVASCULAR SYSTEM: S1, S2 muffled. No S3. No S4. RESPIRATORY SYSTEM: Breath sounds diminished at the bases. A few scattered rhonchi. No crackles. ABDOMEN: Soft. Mild diffuse discomfort. No guarding. No rigidity. Spleen is palpable. Otherwise, no ascites. LEGS: Minimal edema. NERVOUS SYSTEM: Higher functions as mentioned earlier. Moves all 4 limbs. No focal motor or sensory deficit. LYMPHATICS: No lymph node palpable in neck, axillae or groin. SKIN: No ulcer, rash, bleeding. LABS: WBC 13.8, hemoglobin 6.7, platelets 4.7. INR 1.2. Glucose 128. Albumin is 2.8. Lipase is 458. ASSESSMENT: 1. Anemia for evaluation; possibly acute blood-loss anemia, on transfusion. 2. Thrombocytopenia. 3. Increased white count. 4. Rule out chronic liver disease and cirrhosis of the liver. 5. Splenomegaly for evaluation. 6. Rule out hematologic process. 7. Hyponatremia. 8. Increased lipase with normal amylase. 9. History of irritable bowel syndrome. 10.History of pancreatitis. 11.History of sepsis. 12.History of depression. 13.History of skin cancer. RECOMMENDATIONS AND DISCUSSION: In this 57-year-old gentleman who presented with multiple complex medical issues., we will monitor the patient closely, continue the current medications, continue with symptomatic treatment. Transfusion. Obtain cultures. Continue with broad-spectrum IV antibiotics. Will obtain gastroenterology and hematology consultations. A liver clinic appointment at [facility] is pending at this time. Otherwise the prognosis is guarded because of multiple complex medical issues. Further recommendations to follow. Dr. Shea is also being consulted. A copy of this dictation is being forwarded to Dr. St, who is the primary physician. See orders for further details. MMODL / IJN: [id number] /
[2018-01-27] MEDS ORDERED: ONDANSETRON 4 MG/2 ML VIAL IVP STA (21:22)
--- NOTE | 2018-01-27 22:27 | CT ---
EXAMINATION TYPE: CT abdomen pelvis wo con DATE OF EXAM: 01/27/2018 COMPARISON: 01/05/2018 HISTORY: Splenomegaly CT DLP: 830.6 mGycm Automated exposure control for dose reduction was used. TECHNIQUE: Helical acquisition of images was performed from the lung bases through the pelvis. FINDINGS: Lung bases are clear. There is no pleural effusion. Heart appears enlarged. There is no pericardial e ffusion. Liver shows no focal defect. Spleen is enlarged and measures almost 19 cm in length. There is no evid ence of a pancreatic mass. There are calcified gallstones in the dependent gallbladder. Bile ducts ar e not dilated. The pancreas shows mild diffuse enlargement. There is no adrenal mass. Kidneys have normal size and contour. There is no hydronephrosis. There is no retroperitoneal adenopathy. There is a long segment of distal ileum with wall thickening. This extends to the ileocecal valve. Th e cecum appears normal. There is no evidence of a bowel obstruction. I see no dilated loops of bowel. There is no ascites. Bladder distends smoothly. There is no sign of a pelvic mass. IMPRESSION: COMPARED TO LAST EXAM THERE IS INCREASE IN THE PANCREAS WITH LOSS OF FATTY MARGINS. THIS IS SUGGESTIV E OF DIFFUSE INFLAMMATORY PROCESS AND PANCREATITIS. NO DILATED DUCTS. NO EVIDENCE OF A PSEUDOCYST. SEVERE SPLENOMEGALY IS UNCHANGED. MULTIPLE CALCIFIED GALLSTONES. THERE IS DISTAL ILEUM WALL THICKENING THAT IS THE SAME OR WORSE THAN L AST EXAM AND CONSISTENT WITH NONSPECIFIC INFLAMMATORY PROCESS.
[2018-01-27] MEDS: MORPHINE SULFATE 4 MG/ML SYRINGE IVP PRN (22:37)
[2018-01-27] MEDS: PANTOPRAZOLE 40 MG/10 ML VIAL IVP SCH (23:42)
[2018-01-27] MEDS: POTASSIUM CHLORIDE ER 10 MEQ TAB.ER.PRT PO SCH (23:43)
[2018-01-27 23:49] LABS: Anisocytosis Slight; HCT 20.4 % (39.0-53.0); MCH 29.5 pg (25.0-35.0); MCV 86.8 fL (80.0-100.0); Mean Platelet Volume 11.5; Poikilocytosis Slight; RBC 2.35 m/uL (4.30-5.90); RDW 17.6 % (11.5-15.5)
[2018-01-27 23:50] LABS: HGB 6.9 gm/dL (13.0-17.5); Platelet Count 42 k/uL (150-450)
[2018-01-27 23:58] LABS: INR 1.3 (<1.2); Prothrombin Time 12.6 sec (9.0-12.0)
[2018-01-28 01:00] LABS: Total Cells Counted 200
[2018-01-28 01:01] LABS: Reactive Lymphocytes Present
[2018-01-28 01:02] LABS: Large Platelets Present
[2018-01-28 02:07] LABS: Anisocytosis Slight; MCHC 33.6 g/dL (31.0-37.0); MCV 86.3 fL (80.0-100.0); Mean Platelet Volume 11.8; Poikilocytosis Slight; RBC 2.23 m/uL (4.30-5.90); RDW 17.6 % (11.5-15.5)
[2018-01-28 02:17] LABS: HGB 6.5 gm/dL (13.0-17.5)
[2018-01-28 02:18] LABS: HCT 19.2 % (39.0-53.0)
[2018-01-28 02:19] LABS: Platelet Count 37 k/uL (150-450)
[2018-01-28 02:49] VITALS: RESP 18
[2018-01-28] MEDS: HYDROcodone/APAP 5-325MG 1 EACH TAB PO PRN ×3 (02:52→15:58)
[2018-01-28 03:28] LABS: Basophils # (M) 0.08 k/uL (0-0.2); Total Cells Counted 200
[2018-01-28 03:29] LABS: Large Platelets Present
[2018-01-28 03:30] LABS: Polychromasia Present; Reactive Lymphocytes Present
[2018-01-28] MEDS: MORPHINE SULFATE 4 MG/ML SYRINGE IVP PRN ×2 (05:22→11:32)
[2018-01-28 05:54] LABS: Anisocytosis Slight; HCT 21.4 % (39.0-53.0); HGB 7.2 gm/dL (13.0-17.5); MCH 28.9 pg (25.0-35.0); MCHC 33.8 g/dL (31.0-37.0); MCV 85.3 fL (80.0-100.0); Mean Platelet Volume 11.2; Poikilocytosis Slight; RBC 2.51 m/uL (4.30-5.90); RDW 17.5 % (11.5-15.5)
[2018-01-28 05:56] LABS: Platelet Count 38 k/uL (150-450)
[2018-01-28 06:12] LABS: ALT 16 U/L (21-72); AST 14 U/L (17-59); Albumin 2.4 g/dL (3.5-5.0); Alkaline Phosphatase 84 U/L (38-126); Amylase 70 U/L (30-110); Anion Gap 8 mmol/L; Blood Urea Nitrogen 14 mg/dL (9-20); Calcium 7.9 mg/dL (8.4-10.2); Carbon Dioxide 28 mmol/L (22-30); Chloride 103 mmol/L (98-107); Glucose 109 mg/dL (74-99); Lipase 353 U/L (23-300); Magnesium 1.8 mg/dL (1.6-2.3); Sodium 139 mmol/L (137-145); Total Bilirubin 0.8 mg/dL (0.2-1.3); Total Protein 5.2 g/dL (6.3-8.2)
[2018-01-28] MEDS: PANTOPRAZOLE 40 MG/10 ML VIAL IVP SCH (08:10)
[2018-01-28] MEDS: POTASSIUM CHLORIDE ER 10 MEQ TAB.ER.PRT PO SCH (08:10)
--- NOTE | 2018-01-28 08:18 | XR ---
EXAMINATION TYPE: XR chest 1V portable DATE OF EXAM: 01/28/2018 HISTORY: Shortness of breath. COMPARISON: 01/27/2018 TECHNIQUE: Single view of the chest is submitted. FINDINGS: Demonstrated are scattered senescent parenchymal change. There is no evidence for focal infiltrate. The heart is stable. Hilar and mediastinal structures are within normal limits. Degenerative changes are seen of the dorsal spine. IMPRESSION: 1. Chronic changes without evidence for acute pulmonary disease.
[2018-01-28] MEDS ORDERED: CITALOPRAM HYDROBROMIDE 20 MG TAB PO SCH (09:00)
[2018-01-28] MEDS ORDERED: cefTRIAXone IN SWFI 1,000 MG/10 ML SYRINGE IVP SCH (09:00)
--- NOTE | 2018-01-28 09:27 | P.CONS ---
History of Present Illness - Reason for Consult Consult date: 01/28/18 liver disease Requesting physician: Kimmie Strong - History of Present Illness 57-year-old gentleman recently hospitalized end of December with UTI, epigastric abdominal pain diarrhea greater than 6 months, bicytopenia, guaiac positive stools, fever and possible pancreatitis. He underwent EGD colonoscopy for evaluation diarrhea, guaiac positive stools and anemia with findings of antral gastritis and normal colonoscopy. Biopsies negative. Lipase during that admission was 451 and normalized to 106. LFTs remained unremarkable. He vehemently denies history of alcohol consumption or abuse. No history of known liver disorders or hepatitis. No history of intravenous drug abuse. Consultation requested for evaluation of possible liver disease. He was seen by hematology. Peripheral slight was reviewed and it acute leukemic process appeared to be unlikely however flow cytometry results were pending. Possible chronic myeloproliferative disorder within the differential given the significant monocytosis. He was scheduled to follow up with hematology today and was advised referral to [facility] liver clinic scheduled 02/01/2018. He presents with persistent abdominal discomfort uncontrolled nonbloody diarrhea with reports of abnormal outpatient CBC. Reports fatigue weakness without chest pain or shortness of breath. Denies overt bleeding such as hematemesis hematochezia melena. Multiple episodes of diarrhea sometimes incontinent. No improvement with [id number] Imodium. Admission white count 13.4 presently 8.7. Hemoglobin 6.7 presently 7.2. Received 2 units of blood. MCV 85. Platelet 47,000 presently 38,000. 6% blast cells. INR 1.2. Total bilirubin 0.9. AST 14. ALT 21. Alkaline phosphates 121 lipase 458. Amylase within normal limits. CA-19-9 previous admission was 66.2. Hepatitis screen nonreactive. Influenza screen not detected. C. diff negative. IgG subclass 1-4; IgG G1 386. IgG2 334. IgG3 22. IgG4 8.3. unremarkable. SISSY screen negative. Review of flow cytometry reported findings seen with a myelodysplastic myeloproliferative disorder. CT abdomen and pelvis 01/05/2018 small gallstones seen within the gallbladder. No space-occupying hepatic lesion. Biliary tree normal caliber. Mild inflammatory changes surrounding the pancreas. Splenomegaly measuring 14.[address] abdomen and pelvis 01/27/2018 redemonstrated no focal liver defect. Spleen measuring around 19 cm in length. No evidence of pancreatic mass. Gallstone redemonstrated. Bile duct is not dilated. Pancreas shows mild diffuse enlargement. No evidence of pseudocyst. Long segment of distal ileum with wall thickening. Review of Systems Constitutional: Denies fever, chills, sweats, weight gain, or loss. HEENT: Negative for migraines, blurred vision or loss, earaches, drainage, tinnitus, oral mucosal lesions, dysphagia, or odynophagia. Cardiac: Negative for chest pain, arrhythmias, or palpitation. Respiratory: Negative for shortness of breath, hemoptysis, cough, or sputum production. Gastrointestinal: See HPI for pertinent findings. Genitourinary: Negative for hematuria, urgency, frequency, polyuria, dysuria, or penile discharge. Musculoskeletal: Negative for muscle aches, swelling, arthritis, and arthralgias. Neurologic: Negative for stroke or TIA. Endocrine: Negative for thyroid problems. Skin: Negative for rash or itching. Psychiatric: History of depression. Past Medical History Additional Past Medical History / Comment(s): IBS, skin cancer, pancreatitis History of Any Multi-Drug Resistant Organisms: None Reported Additional Past Surgical History / Comment(s): Skin cancer removal Past Anesthesia/Blood Transfusion Reactions: No Reported Reaction Past Psychological History: Depression Smoking Status: Former smoker Past Alcohol Use History: None Reported Past Drug Use History: None Reported Medications and Allergies Home Medications Medication Instructions Recorded Confirmed Type Citalopram Hydrobromide 10 mg PO HS 01/05/18 01/27/18 History [Citalopram HBr] Citalopram Hydrobromide 20 mg PO DAILY 01/05/18 01/27/18 History [Citalopram HBr] Pantoprazole [Protonix] 40 mg PO DAILY #30 tablet. 01/11/18 01/27/18 Rx Acetaminophen Tab [Tylenol Tab] 1,000 mg PO Q6HR PRN 01/27/18 01/27/18 History HYDROcodone/APAP 5-325MG [[place] 1 tab PO Q6H PRN 01/27/18 01/27/18 History 5-325] Losartan [Cozaar] 25 mg PO DAILY PRN 01/27/18 01/27/18 History Metoprolol Tartrate [Lopressor] 25 mg PO BID PRN 01/27/18 01/27/18 History Potassium Chloride ER [K-Dur 10] 10 meq PO BID 01/27/18 01/27/18 History Allergies Allergy/AdvReac Type Severity Reaction Status Date / Time Penicillins Allergy Swelling Verified 01/27/18 16:36 Physical Exam Vitals: Vital Signs Temp Pulse Pulse Resp BP BP Pulse Ox 01/28/18 05:21 98.4 F 75 18 104/66 96 01/28/18 03:58 98.5 F 83 18 101/58 97 01/28/18 03:57 85 18 01/28/18 03:22 98.5 F 83 18 101/58 98 01/28/18 02:52 98.4 F 80 18 104/57 97 01/28/18 02:42 98.7 F 81 18 105/59 97 01/28/18 00:00 97.5 F L 85 16 102/57 94 L 01/27/18 22:12 98.3 F 92 18 100/69 97 01/27/18 20:58 99 F 95 18 116/58 01/27/18 20:00 99 F 99 18 101/50 98 01/27/18 19:31 98 F 92 18 103/91 01/27/18 19:01 98.8 F 100 18 95/49 96 01/27/18 18:53 97.8 F 16 102/57 01/27/18 18:51 99.3 F 95 20 106/57 01/27/18 18:37 99.3 F 96 20 106/57 96 01/27/18 16:38 100.6 F H 96 19 122/57 100 01/27/18 14:58 98 F 104 H 18 115/61 100 Intake and Output 01/27/18 01/28/18 01/28/18 22:59 06:59 14:59 Intake Total 150 460 Balance 150 460 Intake: Intake, IV Titration 150 150 Amount Sodium Chloride 0.9% 1, 150 150 000 ml @ 75 mls/hr IV . [id number] ONE Rx#:[id number] Blood Product 0 310 Rc As-3 Unit 310 [id number] Rc Cpda-1 Unit 0 [id number] Other: Weight 95 kg 93.6 kg General appearance: The patient is alert, oriented, in no acute distress. HET: Head is normocephalic and atraumatic. Pupils are equal and reactive. Oropharynx is clear without lesions. Neck: Supple without lymphadenopathy. Trachea midline. Heart: S1 S2. Regular rate and rhythm. Lungs: No crackles or wheezes are heard. Abdomen: Soft, mild midabdominal tenderness with mild bloatedness hyperactive bowel sounds. No peritoneal signs. No palpable organomegaly or masses. Extremities: Normal skin color and turgor. No cyanosis, rash, ulceration, clubbing, or edema. Radial and pedal pulses are 2/4 bilaterally. Neurological: No focal deficits. Strength and sensation are grossly intact. Results CBC & Chem 7: 01/28/18 05:43 01/28/18 05:43 Labs: Abnormal Lab Results - Last 24 Hours (Table) 01/27/18 01/27/18 01/27/18 Range/Units 13:54 16:22 16:22 WBC (3.8-10.6) k/uL RBC (4.30-5.90) m/uL Hgb (13.0-17.5) gm/dL Hct (39.0-53.0) % RDW (11.5-15.5) % Plt Count (150-450) k/uL PT (9.0-12.0) sec INR 1.2 H (<1.2) APTT 20.6 L (22.0-30.0) sec Sodium (137-145) mmol/L Glucose (74-99) mg/dL Calcium (8.4-10.2) mg/dL AST (17-59) U/L ALT (21-72) U/L Total Creatine Kinase <20 L (55-170) U/L Total Protein (6.3-8.2) g/dL Albumin (3.5-5.0) g/dL Lipase (23-300) U/L Urine Protein 1+ H (Negative) Urine Blood Trace H (Negative) Urine Bilirubin 1+ H (Negative) Urine Bacteria Rare H (None) /hpf Hyaline Casts 27 H (0-2) /lpf Urine Mucus Many H (None) /hpf Crossmatch 01/27/18 01/27/18 01/27/18 Range/Units 16:22 16:22 16:22 WBC 13.8 H (3.8-10.6) k/uL RBC 2.34 L (4.30-5.90) m/uL Hgb 6.7 L* D (13.0-17.5) gm/dL Hct 20.1 L (39.0-53.0) % RDW 17.9 H (11.5-15.5) % Plt Count 47 L* (150-450) k/uL PT (9.0-12.0) sec INR (<1.2) APTT (22.0-30.0) sec Sodium 136 L (137-145) mmol/L Glucose 128 H (74-99) mg/dL Calcium 8.3 L (8.4-10.2) mg/dL AST 14 L (17-59) U/L ALT (21-72) U/L Total Creatine Kinase (55-170) U/L Total Protein 5.7 L (6.3-8.2) g/dL Albumin 2.8 L (3.5-5.0) g/dL Lipase 458 H (23-300) U/L Urine Protein (Negative) Urine Blood (Negative) Urine Bilirubin (Negative) Urine Bacteria (None) /hpf Hyaline Casts (0-2) /lpf Urine Mucus (None) /hpf Crossmatch See Detail 01/27/18 01/27/18 01/28/18 Range/Units 23:39 23:39 01:57 WBC (3.8-10.6) k/uL RBC 2.35 L 2.23 L (4.30-5.90) m/uL Hgb 6.9 L* 6.5 L* (13.0-17.5) gm/dL Hct 20.4 L 19.2 L* (39.0-53.0) % RDW 17.6 H 17.6 H (11.5-15.5) % Plt Count 42 L* 37 L* (150-450) k/uL PT 12.6 H (9.0-12.0) sec INR 1.3 H (<1.2) APTT (22.0-30.0) sec Sodium (137-145) mmol/L Glucose (74-99) mg/dL Calcium (8.4-10.2) mg/dL AST (17-59) U/L ALT (21-72) U/L Total Creatine Kinase (55-170) U/L Total Protein (6.3-8.2) g/dL Albumin (3.5-5.0) g/dL Lipase (23-300) U/L Urine Protein (Negative) Urine Blood (Negative) Urine Bilirubin (Negative) Urine Bacteria (None) /hpf Hyaline Casts (0-2) /lpf Urine Mucus (None) /hpf Crossmatch 01/28/18 01/28/18 Range/Units 05:43 05:43 WBC (3.8-10.6) k/uL RBC 2.51 L (4.30-5.90) m/uL Hgb 7.2 L (13.0-17.5) gm/dL Hct 21.4 L (39.0-53.0) % RDW 17.5 H (11.5-15.5) % Plt Count 38 L* (150-450) k/uL PT (9.0-12.0) sec INR (<1.2) APTT (22.0-30.0) sec Sodium (137-145) mmol/L Glucose 109 H (74-99) mg/dL Calcium 7.9 L (8.4-10.2) mg/dL AST 14 L (17-59) U/L ALT 16 L (21-72) U/L Total Creatine Kinase (55-170) U/L Total Protein 5.2 L (6.3-8.2) g/dL Albumin 2.4 L (3.5-5.0) g/dL Lipase 353 H (23-300) U/L Urine Protein (Negative) Urine Blood (Negative) Urine Bilirubin (Negative) Urine Bacteria (None) /hpf Hyaline Casts (0-2) /lpf Urine Mucus (None) /hpf Crossmatch Microbiology - Last 24 Hours (Table) 01/27/18 13:54 Urine Culture - Preliminary Urine,Voided CT scan - abdomen: report reviewed (Dr. Stinson) Assessment and Plan (1) Abdominal pain Narrative/Plan: 57-year-old male admitted with persistent abdominal discomfort mild elevation of lipase normal amylase, nonbloody diarrhea low-grade fever as well as persistent anemia thrombocytopenia with recent hospitalization for acute pancreatitis also GI bleed status post unremarkable EGD colonoscopy. Possible underlying myeloproliferative disorder. No history of known liver disorders hepatitis or alcoholism. No clinical evidence at this time to suggest underlying liver disease; patient has normal liver function tests and radiographic imaging reported no evidence of focal liver defect or changes consistent with possible underlying liver disease. Current Visit: Yes Status: Acute Code(s): R10.9 - UNSPECIFIED ABDOMINAL PAIN SNOMED Code(s): 12233970 (2) Diarrhea Narrative/Plan: Chronic greater than 6 months status post EGD colonoscopy with negative biopsies. Current Visit: Yes Status: Acute Code(s): R19.7 - DIARRHEA, UNSPECIFIED SNOMED Code(s): 95723240 (3) Pancreatitis Narrative/Plan: Etiology unclear mild elevation of CA-19-9 marker on previous elevation but can be seen in the setting of acute pancreatitis. Serologic pancreatic autoimmune workup unremarkable. Current Visit: No Status: Acute Code(s): K85.90 - ACUTE PANCREATITIS WITHOUT NECROSIS OR INFECTION, UNSP SNOMED Code(s): 48221010 (4) Anemia Narrative/Plan: No clinical evidence at this time to suggest active GI bleed Current Visit: Yes Status: Acute Code(s): D64.9 - ANEMIA, UNSPECIFIED SNOMED Code(s): 719345708 (5) Thrombocytopenia Current Visit: Yes Status: Acute Code(s): D69.6 - THROMBOCYTOPENIA, UNSPECIFIED SNOMED Code(s): 152411454 Plan: 1. Recommend hematology evaluation for persistent low platelets and anemia possible underlying myeloproliferative disorder. Repeat endoscopic exams not planned at this time unless patient develops an overt GI bleed. 2. MRI pancreas further evaluation of elevated lipase, CA 19-9 and features of pancreatitis on CT. 3. Stool studies. Lomotil for diarrhea. Repeat CA 19-9 in am. 4. Diet as tolerated. 5. Will follow closely with you. Plan of care was discussed with patient and his significant other all questions were answered to their satisfaction. Thank you for this kind referral and the opportunity to participate in the care of your patient. This consultation was discussed with Dr. Stinson. The impression and plan of care have been directed as dictated.
[2018-01-28 10:15] LABS: Band Neutrophils % 4 %; Lymphocytes # (M) 1.61 k/uL (1.0-4.8); Metamyelocytes # (M) 0.27 k/uL (0); Metamyelocytes % 2 %; Myelocytes % 3 %; Neutrophils % (M) 53 %; Nucleated Red Blood Cells 3 /100 WBC (0-0); Promyelocytes # (M) 0.27 k/uL (0); Promyelocytes % 2 %; Total Cells Counted 200; WBC 13.4 k/uL (3.8-10.6)
[2018-01-28 10:17] LABS: Ovalocytes Present; Poikilocytosis (M) Present
[2018-01-28 10:18] LABS: Polychromasia Present
[2018-01-28 10:24] LABS: Monocytes # (M) 2.81 k/uL (0-1.0)
[2018-01-28 10:32] LABS: Blast Cells # (M) 0.19 k/uL (0); Metamyelocytes % 1 %; Myelocytes # (M) 0.29 k/uL (0); Myelocytes % 3 %; Neutrophils % (M) 67 %; Nucleated Red Blood Cells 3 /100 WBC (0-0); Promyelocytes # (M) 0.29 k/uL (0); Promyelocytes % 3 %; WBC 9.5 k/uL (3.8-10.6)
[2018-01-28 10:35] LABS: Ovalocytes Present; Polychromasia Present; Tear Drop Cells Present
[2018-01-28 10:39] LABS: Lymphocytes # (M) 1.33 k/uL (1.0-4.8)
[2018-01-28 10:40] LABS: Monocytes # (M) 1.14 k/uL (0-1.0)
[2018-01-28 10:49] LABS: Band Neutrophils % 2 %; Blast Cells # (M) 0.16 k/uL (0); Lymphocytes # (M) 1.07 k/uL (1.0-4.8); Metamyelocytes # (M) 0.08 k/uL (0); Metamyelocytes % 1 %; Myelocytes # (M) 0.08 k/uL (0); Myelocytes % 1 %; Neutrophils % (M) 44 %; Nucleated Red Blood Cells 3 /100 WBC (0-0); Promyelocytes # (M) 0.16 k/uL (0); Promyelocytes % 2 %; WBC 8.2 k/uL (3.8-10.6)
[2018-01-28 10:53] LABS: Ovalocytes Present; Poikilocytosis (M) Present; Tear Drop Cells Present
[2018-01-28 10:56] LABS: Monocytes # (M) 3.12 k/uL (0-1.0)
[2018-01-28 11:06] LABS: Band Neutrophils % 5 %; Blast Cells # (M) 0.26 k/uL (0); Metamyelocytes % 5 %; Myelocytes # (M) 0.26 k/uL (0); Myelocytes % 3 %; Neutrophils % (M) 52 %; Nucleated Red Blood Cells 1 /100 WBC (0-0); Promyelocytes # (M) 0.17 k/uL (0); Promyelocytes % 2 %; Total Cells Counted 200
[2018-01-28 11:07] LABS: Lymphocytes # (M) 1.38 k/uL (1.0-4.8); Metamyelocytes # (M) 0.43 k/uL (0); Polychromasia Present; Tear Drop Cells Present; WBC 8.6 k/uL (3.8-10.6)
[2018-01-28 11:10] LABS: Ovalocytes Present
[2018-01-28 11:13] LABS: Monocytes # (M) 1.55 k/uL (0-1.0)
[2018-01-28 11:18] LABS: Neutrophils # (M) 6.37 k/uL (1.3-7.7)
[2018-01-28] MEDS ORDERED: POTASSIUM CHLORIDE ER 20 MEQ TAB.ER PO STA (12:08)
[2018-01-28] MEDS ORDERED: HYDROmorphone 2 MG TAB PO PRN (14:05)
[2018-01-28] MEDS: DIPHENOX-ATROP 2.5-0.025 MG 1 EACH TAB PO SCH ×2 (14:34→16:03)
[2018-01-28 16:31] VITALS: PULSE 91; TEMP 98.2
--- NOTE | 2018-01-28 20:43 | DS ---
DISCHARGE SUMMARY FINAL DIAGNOSES: 1. Anemia, possibly acute on chronic. Rule out blood loss anemia, status post transfusion, recurrent. 2. Thrombocytopenia. Rule out blood dyscrasias. 3. Rule out chronic liver disease. 4. Increased white count. 5. Retroperitoneal inflammation around the pancreas with possible pancreatitis. 6. Splenomegaly for evaluation. 7. Hyponatremia. 8. Increased lipase with normal amylase. 9. History of inflammatory bowel syndrome. 10.History of recent pancreatitis. 11.History of recent sepsis. 12.History of depression. 13.History of skin cancer. DISCHARGE DISPOSITION: The patient will be discharged in stable condition with guarded prognosis. The patient is transferred to [facility] for further evaluation and treatment. Total time taken 35 minutes. HISTORY OF PRESENT ILLNESS: This 57-year-old gentleman being followed by Dr. St in the outpatient setting was admitted with anemia. Hemoglobin was found to be 6.9 and 6.5. He was transfused. Hemoglobin improved to 7.2. The patient also had thrombocytopenia with platelets of 38. The patient also had elevated monocyte count as well as lipase at 353. Patient was treated symptomatically. The previous flow cytometry was also done by Hematology/Oncology which showed no definite evidence of leukemia. Otherwise, multiple findings are noted. The case was discussed with [facility] and also with Dr. Shea, and the patient will be transferred in stable condition with guarded prognosis. On exam, vital signs are stable. CARDIOVASCULAR SYSTEM: S1, S2 muffled. ABDOMEN: Soft. Mild diffuse tenderness. No guarding. No rigidity. NERVOUS SYSTEM: No focal deficit. Please refer to the medications list for details of the medications. Further recommendations to follow. MMODL / IJN: [id number] /
[2018-01-28 21:12] VITALS: BP 110/68
--- NOTE | 2018-02-01 00:18 | P.CONS ---
History of Present Illness - Reason for Consult Consult date: 01/28/18 Bicytopenia Requesting physician: Domo Fonseca - Chief Complaint abdominal pain - History of Present Illness Mr. Epps is a pleasant 57 year old male patient who was recently admitted to [facility] after presenting with complaints of abdominal pain. Over the past 5 to 6 months patient has been experiencing intermittent mid-epigastric pain. 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 He has noticed he has been experiencing increasing fatigue, weakness, progressive epigastric pain and recently a fever, with T-max 102.0. 15lb weight loss after changing diet to control his known history of IBS. Only other documented history is Depression. He was recently started on Viberzi for this reason. CT abdomen and pelvis small gallstone Mild infiltrate changes surrounding the pancreas. Moderate small bowel wall thickening suspicious for nonspecific enteritis.On 01/07/18 he underwent Esophagogastroduodenoscopy and Colonoscopy with bx. Hematology was consulted related to his abnormal blood counts and concern of blasts in peripheral blood. His stool OB was Positive. He denies any history of problems with his blood in past. I reviewed the peripheral slide at last admission and found there was evidence of monocytosis. By my review, possible blasts were noted very infrequently. It was felt at that time a chronic myeloproliferative disorder would be clinically more likely, given the significant monocytosis. in that situation, then an acute leukemic process. Mr. Epps now presented back to ED. He continues to complain of persistent abdominal pain. His Hgb on admission was 6.7, platelet count 37, WBC 8.5. CT abdomen and Pelvis revealed increased inflammation around the area of the pancreas, unclear etiology. He was given one unit of PRBC to bring his Hgb up to 7.2. His blood counts do not appear drastically changed from prior admission , therefore from a hematology standpoint the bone marrow issue continues to appear chronic in nature. Although, with new findings on the CT scan, and inability to differentiate its etiology the plan to transfer him to [facility] for further diagnostic evaluation is resonable. is at bedside during discussion. Review of Systems A 14 point review of systems is assessed and completed and all negative except abdominal pain, diarrhea, and fatigue. Past Medical History Additional Past Medical History / Comment(s): IBS, skin cancer, pancreatitis History of Any Multi-Drug Resistant Organisms: None Reported Additional Past Surgical History / Comment(s): Skin cancer removal Past Anesthesia/Blood Transfusion Reactions: No Reported Reaction Past Psychological History: Depression Smoking Status: Former smoker Past Alcohol Use History: None Reported Past Drug Use History: None Reported Medications and Allergies Home Medications Medication Instructions Recorded Confirmed Type Citalopram Hydrobromide 10 mg PO HS 01/05/18 01/27/18 History [Citalopram HBr] Citalopram Hydrobromide 20 mg PO DAILY 01/05/18 01/27/18 History [Citalopram HBr] Pantoprazole [Protonix] 40 mg PO DAILY #30 tablet. 01/11/18 01/27/18 Rx Acetaminophen Tab [Tylenol Tab] 1,000 mg PO Q6HR PRN 01/27/18 01/27/18 History HYDROcodone/APAP 5-325MG [[place] 1 tab PO Q6H PRN 01/27/18 01/27/18 History 5-325] Losartan [Cozaar] 25 mg PO DAILY PRN 01/27/18 01/27/18 History Metoprolol Tartrate [Lopressor] 25 mg PO BID PRN 01/27/18 01/27/18 History Potassium Chloride ER [K-Dur 10] 10 meq PO BID 01/27/18 01/27/18 History Allergies Allergy/AdvReac Type Severity Reaction Status Date / Time Penicillins Allergy Swelling Verified 01/27/18 16:36 Physical Exam Vitals: Vital Signs Temp Pulse Pulse Resp BP BP Pulse Ox 01/28/18 12:00 98.2 F 91 18 97/54 96 01/28/18 08:00 99.1 F 77 18 110/57 96 01/28/18 05:21 98.4 F 75 18 104/66 96 01/28/18 03:58 98.5 F 83 18 101/58 97 01/28/18 03:57 85 18 01/28/18 03:22 98.5 F 83 18 101/58 98 01/28/18 02:52 98.4 F 80 18 104/57 97 01/28/18 02:42 98.7 F 81 18 105/59 97 01/28/18 00:00 97.5 F L 85 16 102/57 94 L 01/27/18 22:12 98.3 F 92 18 100/69 97 01/27/18 20:58 99 F 95 18 116/58 01/27/18 20:00 99 F 99 18 101/50 98 01/27/18 19:31 98 F 92 18 103/91 01/27/18 19:01 98.8 F 100 18 95/49 96 01/27/18 18:53 97.8 F 16 102/57 01/27/18 18:51 99.3 F 95 20 106/57 01/27/18 18:37 99.3 F 96 20 106/57 96 Intake and Output 01/28/18 01/28/18 01/28/18 06:59 14:59 22:59 Intake Total 460 230 Output Total 1200 Balance 460 -970 Intake: Intake, IV Titration 150 Amount Sodium Chloride 0.9% 1, 150 000 ml @ 75 mls/hr IV . [id number] ONE Rx#:[id number] Oral 230 Blood Product 310 Rc As-3 Unit 310 [id number] Output: Urine 1200 Other: Weight 93.6 kg - Constitutional General appearance: no acute distress - EENT Eyes: EOMI - Neck Neck: no lymphadenopathy - Gastrointestinal General gastrointestinal: no organomegaly, soft, no tenderness Results CBC & Chem 7: 01/28/18 05:43 01/28/18 05:43 Labs: Abnormal Lab Results - Last 24 Hours (Table) 01/27/18 01/27/18 01/27/18 Range/Units 16:22 16:22 16:22 WBC (3.8-10.6) k/uL RBC (4.30-5.90) m/uL Hgb (13.0-17.5) gm/dL Hct (39.0-53.0) % RDW (11.5-15.5) % Plt Count (150-450) k/uL Monocytes # (Manual) (0-1.0) k/uL Metamyelocytes # (Man) (0) k/uL Myelocytes # (Manual) (0) k/uL Promyelocytes # (Man) (0) k/uL Blast Cells # (Man) (0) k/uL Nucleated RBCs (0-0) /100 WBC PT (9.0-12.0) sec INR 1.2 H (<1.2) APTT 20.6 L (22.0-30.0) sec Sodium 136 L (137-145) mmol/L Glucose 128 H (74-99) mg/dL Calcium 8.3 L (8.4-10.2) mg/dL AST 14 L (17-59) U/L ALT (21-72) U/L Total Creatine Kinase <20 L (55-170) U/L Total Protein 5.7 L (6.3-8.2) g/dL Albumin 2.8 L (3.5-5.0) g/dL Lipase 458 H (23-300) U/L Crossmatch 01/27/18 01/27/18 01/27/18 Range/Units 16:22 16:22 23:39 WBC 13.4 H (3.8-10.6) k/uL RBC 2.34 L 2.35 L (4.30-5.90) m/uL Hgb 6.7 L* D 6.9 L* (13.0-17.5) gm/dL Hct 20.1 L 20.4 L (39.0-53.0) % RDW 17.9 H 17.6 H (11.5-15.5) % Plt Count 47 L* 42 L* (150-450) k/uL Monocytes # (Manual) 2.81 H 1.14 H (0-1.0) k/uL Metamyelocytes # (Man) 0.27 H 0.10 H (0) k/uL Myelocytes # (Manual) 0.40 H 0.29 H (0) k/uL Promyelocytes # (Man) 0.27 H 0.29 H (0) k/uL Blast Cells # (Man) 0.80 H 0.19 H (0) k/uL Nucleated RBCs 3 H 3 H (0-0) /100 WBC PT (9.0-12.0) sec INR (<1.2) APTT (22.0-30.0) sec Sodium (137-145) mmol/L Glucose (74-99) mg/dL Calcium (8.4-10.2) mg/dL AST (17-59) U/L ALT (21-72) U/L Total Creatine Kinase (55-170) U/L Total Protein (6.3-8.2) g/dL Albumin (3.5-5.0) g/dL Lipase (23-300) U/L Crossmatch See Detail 01/27/18 01/28/18 01/28/18 Range/Units 23:39 01:57 05:43 WBC (3.8-10.6) k/uL RBC 2.23 L 2.51 L (4.30-5.90) m/uL Hgb 6.5 L* 7.2 L (13.0-17.5) gm/dL Hct 19.2 L* 21.4 L (39.0-53.0) % RDW 17.6 H 17.5 H (11.5-15.5) % Plt Count 37 L* 38 L* (150-450) k/uL Monocytes # (Manual) 3.12 H 1.55 H (0-1.0) k/uL Metamyelocytes # (Man) 0.08 H 0.43 H (0) k/uL Myelocytes # (Manual) 0.08 H 0.26 H (0) k/uL Promyelocytes # (Man) 0.16 H 0.17 H (0) k/uL Blast Cells # (Man) 0.16 H 0.26 H (0) k/uL Nucleated RBCs 3 H 1 H (0-0) /100 WBC PT 12.6 H (9.0-12.0) sec INR 1.3 H (<1.2) APTT (22.0-30.0) sec Sodium (137-145) mmol/L Glucose (74-99) mg/dL Calcium (8.4-10.2) mg/dL AST (17-59) U/L ALT (21-72) U/L Total Creatine Kinase (55-170) U/L Total Protein (6.3-8.2) g/dL Albumin (3.5-5.0) g/dL Lipase (23-300) U/L Crossmatch 01/28/18 Range/Units 05:43 WBC (3.8-10.6) k/uL RBC (4.30-5.90) m/uL Hgb (13.0-17.5) gm/dL Hct (39.0-53.0) % RDW (11.5-15.5) % Plt Count (150-450) k/uL Monocytes # (Manual) (0-1.0) k/uL Metamyelocytes # (Man) (0) k/uL Myelocytes # (Manual) (0) k/uL Promyelocytes # (Man) (0) k/uL Blast Cells # (Man) (0) k/uL Nucleated RBCs (0-0) /100 WBC PT (9.0-12.0) sec INR (<1.2) APTT (22.0-30.0) sec Sodium (137-145) mmol/L Glucose 109 H (74-99) mg/dL Calcium 7.9 L (8.4-10.2) mg/dL AST 14 L (17-59) U/L ALT 16 L (21-72) U/L Total Creatine Kinase (55-170) U/L Total Protein 5.2 L (6.3-8.2) g/dL Albumin 2.4 L (3.5-5.0) g/dL Lipase 353 H (23-300) U/L Crossmatch Microbiology - Last 24 Hours (Table) 01/27/18 13:54 Urine Culture - Preliminary Urine,Voided CT scan - abdomen: report reviewed Assessment and Plan (1) Normocytic anemia Narrative/Plan: 1.Likely Multifactoral: Increased Inflammation, SIRS, Underlying Bone Marrow Issue 2. EGD/Colonoscopy at last admission and recent CT scans reviewed and compared to last. 3. Transfusions supportive if hgb less than 7, or symptomatic 4. Long discussion with and patient regarding the two likely separate issues regarding Mr. Epps. The bone marrow issue is clinically most c/w a chronic MPD. This would usually not explain his recurrent abdominal pain, and Ct findings of peritoneal inflammation. Case d/w IM in detail. Plan to transfer to [facility] for further work-up, likely will have bone marrow biopsy while there, if not, will plan to perform when returns back to . Status: Acute Code(s): D64.9 - ANEMIA, UNSPECIFIED SNOMED Code(s): 034872490 (2) Thrombocytopenia Narrative/Plan: Secndary to underlying bone marrow issue (chronic more likely than acute, Splenomegaly, and acute inflammation and recent infection. 1. No evidence of acute bleeding, continue to monitor s/s bleeding 2. Monitor Coags and CBC 3. Trasfuse if evidence of bleeding less than 50, prior to procedure if less than 50 4. Transfuse less than 10 Current Visit: Yes Status: Acute Code(s): D69.6 - THROMBOCYTOPENIA, UNSPECIFIED SNOMED Code(s): 623035361 Status: Acute Code(s): D69.6 - THROMBOCYTOPENIA, UNSPECIFIED SNOMED Code(s) : 950145319 (3) Monocytosis Narrative/Plan: The persistent monocytosis, in association with mostly normal WBC is most s/o an underlying chronic MPD such as CMML, though other etiologies are not ruled out. A bone marrow will be required for diagnosis, but clinically, this is felt to be unlikely to explaain his abdominal symptoms and Ct findings Status: Acute Code(s): D72.821 - MONOCYTOSIS (SYMPTOMATIC) SNOMED Code(s): 76773349 Plan: Extensively d/w pt that while a bone marrow disorder is strongly suspected, this appears to be in a chronic MPD category, and would generally not be expected to be associated with his abdominal symptoms and CT findings. Thus even if a bone marrow were done, and confirmed a marrow condition, the pt would still require additional w/u for his abdominal findings. W/u so far, in that regard, with EGD and colonoscopy, has been negative, and may require more advanced procedures ( eg peritoneal biopsy). Thus, the rationale for recommending a transfer After detailed discussion, pt and his were ultimately agreeable Time with Patient: Greater than 30
== END 2018-01-28 18:48 | disposition short-term general hospital (02) | DRG 811 ==
LOC: EC 14:41 → 6SEL 17:58
PROVIDERS: ADMIT Hospitalist; ATTEND Hospitalist
PROC: 30230N1 Transfusion of Nonautologous Red Blood Cells into Peripheral Vein, Open Approach (ICD-10-PCS; principal; 2018-01-27)
DX: D64.9 Anemia, unspecified (principal); K85.90 Acute pancreatitis without necrosis or infection, unspecified; R65.10 Systemic inflammatory response syndrome (SIRS) of non-infectious origin without acute organ dysfunction; D69.6 Thrombocytopenia, unspecified; E87.1 Hypo-osmolality and hyponatremia; R16.1 Splenomegaly, not elsewhere classified; D47.1 Chronic myeloproliferative disease; F32.9 Major depressive disorder, single episode, unspecified; K58.0 Irritable bowel syndrome with diarrhea; D72.821 Monocytosis (symptomatic); K29.60 Other gastritis without bleeding; K44.9 Diaphragmatic hernia without obstruction or gangrene; K80.20 Calculus of gallbladder without cholecystitis without obstruction; Z85.828 Personal history of other malignant neoplasm of skin; Z87.891 Personal history of nicotine dependence; Z79.899 Other long term (current) drug therapy; Z88.0 Allergy status to penicillin
CPT/HCPCS: 36415; 71045; 71046; 74176; 80053; 81001; 82150; 82550; 82553; 83605; 83690; 83735; 84484; 85025; 85610; 85730; 86850; 86900; 86901; 86920; 87040; 87045; 87046; 87086; 87324; 87502; 89055; 93005; 96361; 96365; 96375; 99285

== ENCOUNTER 2018-02-15 10:05 | Inpatient (IN) | payer OTHER ==
[2018-02-15] MEDS ORDERED: SODIUM CHLORIDE 0.9% 1,000 ML IV STA (10:33)
--- NOTE | 2018-02-15 10:56 | ED ---
General Adult HPI - General Chief complaint: Recheck/Abnormal Lab/Rx Stated complaint: Low Hemaglobin Time Seen by Provider: 02/15/18 10:11 Source: patient Mode of arrival: ambulatory - History of Present Illness Initial comments: 57 years old male had blood work done yesterday at his primary care's office Dr. Ryder he was called in today to come to the ER because his hemoglobin was low he has been through a lot of medical issues over the last few weeks he was diagnosed with the leukemia about 2 weeks ago he seen Dr. Estevez he also has ongoing abdominal pain for which she been seeing Dr. Hall and numb he had upper and lower scope she had abdominal and pelvic CAT scan he also had OF THE ABDOMEN AND IS ALSO ASKING ME TO CALL DR. HALL HE THINKS THERE WAS A BLOOD TEST DR. HALL WANTS TO ONCE WANTED TO MEET HE DO NOT HAVE THE REQUISITION WITH HIM TO ASSIST HIM HE DENIES ANY HEADACHE NO NECK STIFFNESS NO CHEST PAIN NO SHORTNESS OF BREATH NO PLEURITIC CHEST PAIN HE DOES HAVE A VAGUE ABDOMINAL PAIN WHICH IS ONGOING FOR A FEW WEEKS NO FREQUENCY URGENCY DYSURIA NO SYMPTOMS OF TIA OR CVA - Related Data Home Medications Medication Instructions Recorded Confirmed Acetaminophen Tab [Tylenol Tab] 1,000 mg PO Q6HR PRN 01/27/18 02/15/18 Ascorbic Acid [Vitamin C] 500 mg PO DAILY 02/15/18 02/15/18 Iron Otc(Unknown) 1 tab PO BID 02/15/18 02/15/18 Previous Rx's Medication Instructions Recorded Pantoprazole [Protonix] 40 mg PO DAILY #30 tablet. 01/11/18 Allergies Allergy/AdvReac Type Severity Reaction Status Date / Time Penicillins Allergy Dyspnea Verified 02/15/18 11:41 Review of Systems ROS Statement: Those systems with pertinent positive or pertinent negative responses have been documented in the HPI. ROS Other: All systems not noted in ROS Statement are negative. Past Medical History Additional Past Medical History / Comment(s): IBS, skin cancer, pancreatitis History of Any Multi-Drug Resistant Organisms: None Reported Additional Past Surgical History / Comment(s): Skin cancer removal Past Anesthesia/Blood Transfusion Reactions: No Reported Reaction Past Psychological History: Depression Smoking Status: Former smoker Past Alcohol Use History: None Reported Past Drug Use History: None Reported General Exam - General Exam Comments Initial Comments: General: The patient is awake and alert, in no distress, and does not appear acutely ill. Skin: Skin is warm and dry and no rashes or lesions are noted. Eye: Pupils are equal, round and reactive to light, extra-ocular movements are intact; there is normal conjunctiva bilaterally. Ears, nose, mouth and throat: There are moist mucous membranes and no oral lesions. Neck: The neck is supple, there is no tenderness or JVD. Cardiovascular: There is a regular rate and rhythm. No murmur, rub or gallop is appreciated. Respiratory: To auscultation bilateral, no wheezing no rhonchi no distress respiratory moralez noticed Gastrointestinal: D tender in epigastric area positive bowel sounds no guarding no rebounds Back: There is no tenderness to palpation in the midline. There is no obvious deformity. Musculoskeletal: Normal ROM, no tenderness, There is no pedal edema. There is no calf tenderness or swelling. No cords were appreciated. Neurological: CN II-XII intact, Cranial nerves III through XII are intact. There are no obvious motor or sensory deficits. Coordination appears grossly intact. Speech is normal. Psychiatric: Cooperative, appropriate mood & affect, normal judgment. Course Vital Signs 02/15/18 02/15/18 02/15/18 10:08 10:33 11:10 Temperature 97.5 F L Pulse Rate 111 H 93 Pulse Rate [ 111 H Pulse Oximetery ] Respiratory 18 18 Rate Blood Pressure 130/74 120/56 O2 Sat by Pulse 98 99 Oximetry 02/15/18 13:23 Temperature Pulse Rate 91 Pulse Rate [ Pulse Oximetery ] Respiratory 18 Rate Blood Pressure 113/56 O2 Sat by Pulse 97 Oximetry Hemoglobin is 7, patient's heart rate on arrival was 111 at times and noticed heart rate was 1:30 the EKG shows sinus rhythm with the frequent PVCs white count revealed leukocytosis with a left shift and concerned about possibility of sepsis we cultured urine and blood was started on empiric Rocephin 2 g and he would need also a transfusion 1 unit of packed red cells will consult Dr. Hall and Dr. Estevez were familiar with this case and patient be admitted to Dr. Strong service Medical Decision Making - Lab Data Result diagrams: 02/15/18 10:41 02/15/18 10:41 Lab Results 02/15/18 02/15/18 02/15/18 Range/Units 10:41 10:41 10:41 WBC 17.6 H (3.8-10.6) k/uL RBC 2.39 L (4.30-5.90) m/uL Hgb 7.0 L* (13.0-17.5) gm/dL Hct 20.8 L (39.0-53.0) % MCV 87.0 (80.0-100.0) fL MCH 29.4 (25.0-35.0) pg MCHC 33.9 (31.0-37.0) g/dL RDW 19.0 H (11.5-15.5) % Plt Count 71 L (150-450) k/uL Neutrophils % (Manual) 53 % Lymphocytes % (Manual) 12 % Monocytes % (Manual) 29 % Metamyelocytes % 2 % Myelocytes % 4 % Neutrophils # (Manual) 9.33 H (1.3-7.7) k/uL Lymphocytes # (Manual) 2.11 (1.0-4.8) k/uL Monocytes # (Manual) 5.10 H (0-1.0) k/uL Metamyelocytes # (Man) 0.35 H (0) k/uL Myelocytes # (Manual) 0.70 H (0) k/uL Nucleated RBCs 2 H (0-0) /100 WBC Manual Slide Review Performed Polychromasia Present Poikilocytosis Slight Anisocytosis Slight PT (9.0-12.0) sec INR (<1.2) APTT (22.0-30.0) sec Sodium 140 (137-145) mmol/L Potassium 3.0 L* (3.5-5.1) mmol/L Chloride 101 (98-107) mmol/L Carbon Dioxide 25 (22-30) mmol/L Anion Gap 14 mmol/L BUN 14 (9-20) mg/dL Creatinine 1.00 (0.66-1.25) mg/dL Est GFR (CKD-EPI)AfAm >90 (>60 ml/min/1.73 sqM) Est GFR (CKD-EPI)NonAf 84 (>60 ml/min/1.73 sqM) Glucose 175 H (74-99) mg/dL Calcium 8.6 (8.4-10.2) mg/dL Magnesium 1.6 (1.6-2.3) mg/dL Total Bilirubin 1.1 (0.2-1.3) mg/dL AST 17 (17-59) U/L ALT 19 L (21-72) U/L Alkaline Phosphatase 105 (38-126) U/L Total Creatine Kinase <20 L (55-170) U/L CK-MB (CK-2) 0.3 (0.0-2.4) ng/mL CK-MB (CK-2) Rel Index Troponin I <0.012 (0.000-0.034) ng/mL Total Protein 6.0 L (6.3-8.2) g/dL Albumin 3.0 L (3.5-5.0) g/dL 02/15/18 Range/Units 10:41 WBC (3.8-10.6) k/uL RBC (4.30-5.90) m/uL Hgb (13.0-17.5) gm/dL Hct (39.0-53.0) % MCV (80.0-100.0) fL MCH (25.0-35.0) pg MCHC (31.0-37.0) g/dL RDW (11.5-15.5) % Plt Count (150-450) k/uL Neutrophils % (Manual) % Lymphocytes % (Manual) % Monocytes % (Manual) % Metamyelocytes % % Myelocytes % % Neutrophils # (Manual) (1.3-7.7) k/uL Lymphocytes # (Manual) (1.0-4.8) k/uL Monocytes # (Manual) (0-1.0) k/uL Metamyelocytes # (Man) (0) k/uL Myelocytes # (Manual) (0) k/uL Nucleated RBCs (0-0) /100 WBC Manual Slide Review Polychromasia Poikilocytosis Anisocytosis PT 12.6 H (9.0-12.0) sec INR 1.3 H (<1.2) APTT 24.9 (22.0-30.0) sec Sodium (137-145) mmol/L Potassium (3.5-5.1) mmol/L Chloride (98-107) mmol/L Carbon Dioxide (22-30) mmol/L Anion Gap mmol/L BUN (9-20) mg/dL Creatinine (0.66-1.25) mg/dL Est GFR (CKD-EPI)AfAm (>60 ml/min/1.73 sqM) Est GFR (CKD-EPI)NonAf (>60 ml/min/1.73 sqM) Glucose (74-99) mg/dL Calcium (8.4-10.2) mg/dL Magnesium (1.6-2.3) mg/dL Total Bilirubin (0.2-1.3) mg/dL AST (17-59) U/L ALT (21-72) U/L Alkaline Phosphatase (38-126) U/L Total Creatine Kinase (55-170) U/L CK-MB (CK-2) (0.0-2.4) ng/mL CK-MB (CK-2) Rel Index Troponin I (0.000-0.034) ng/mL Total Protein (6.3-8.2) g/dL Albumin (3.5-5.0) g/dL Disposition Clinical Impression: Tachycardia, Symptomatic anemia, Leukocytosis, Hypokalemia Disposition: ADMITTED IP TO THIS HOSP Condition: Good Referrals: Nathan St MD [Primary Care Provider] - 1-2 days
[2018-02-15 11:05] LABS: Anisocytosis Slight; HCT 20.8 % (39.0-53.0); MCH 29.4 pg (25.0-35.0); MCHC 33.9 g/dL (31.0-37.0); Mean Platelet Volume 13.3; Platelet Count 71 k/uL (150-450); Poikilocytosis Slight; RBC 2.39 m/uL (4.30-5.90)
[2018-02-15 11:08] LABS: INR 1.3 (<1.2); Partial Thromboplastin Time 24.9 sec (22.0-30.0); Prothrombin Time 12.6 sec (9.0-12.0)
[2018-02-15 11:09] LABS: ALT 19 U/L (21-72); AST 17 U/L (17-59); Alkaline Phosphatase 105 U/L (38-126); Anion Gap 14 mmol/L; Blood Urea Nitrogen 14 mg/dL (9-20); Calcium 8.6 mg/dL (8.4-10.2); Carbon Dioxide 25 mmol/L (22-30); Chloride 101 mmol/L (98-107); Glucose 175 mg/dL (74-99); Magnesium 1.6 mg/dL (1.6-2.3); Sodium 140 mmol/L (137-145); Total Bilirubin 1.1 mg/dL (0.2-1.3)
--- NOTE | 2018-02-15 11:18 | XR ---
EXAMINATION TYPE: XR chest 2V DATE OF EXAM: 02/15/2018 COMPARISON: 01/28/2018 HISTORY: Anemia. Chest pain. Leukemia. TECHNIQUE: Frontal and lateral views of the chest are obtained. FINDINGS: There is no focal air space opacity, pleural effusion, or pneumothorax seen. The cardiac silhouette size is within normal limits. The osseous structures are intact. Minimal multilevel dege nerative changes of the thoracic spine are noted. IMPRESSION: No acute cardiopulmonary process.
[2018-02-15 11:20] LABS: Creatine Kinase <20 U/L (55-170)
[2018-02-15 11:22] LABS: Lymphocytes # (M) 2.11 k/uL (1.0-4.8); Metamyelocytes # (M) 0.35 k/uL (0); Metamyelocytes % 2 %; Myelocytes % 4 %; Neutrophils # (M) 9.33 k/uL (1.3-7.7); Neutrophils % (M) 53 %; Nucleated Red Blood Cells 2 /100 WBC (0-0); Total Cells Counted 100; WBC 17.6 k/uL (3.8-10.6)
[2018-02-15 11:23] LABS: Polychromasia Present
[2018-02-15 11:32] LABS: Creatine Kinase MB 0.3 ng/mL (0.0-2.4); Troponin I <0.012 ng/mL (0.000-0.034)
[2018-02-15] MEDS ORDERED: POTASSIUM BICARBONATE/CIT AC 20 MEQ TABLET.EFF PO ONE (11:39)
[2018-02-15] MEDS ORDERED: cefTRIAXone 2,000 MG in SODIUM CHLORIDE 0.9% 100 ML IVPB STA (14:01)
[2018-02-15] MEDS ORDERED: cefTRIAXone IN SWFI 2,000 MG/20 ML SYRINGE IVP STA (14:02)
[2018-02-15] MEDS ORDERED: NALOXONE 0.4 MG/ML 1 ML VIAL IV PRN (14:05)
[2018-02-15] MEDS ORDERED: ONDANSETRON 4 MG/2 ML VIAL IVP STA (14:26)
--- NOTE | 2018-02-15 14:58 | P.HPIM ---
History of Present Illness H&P Date: 02/15/18 Chief Complaint: Low hemoglobin Patient is a 57-year-old male with a known history of pancreatitis, gallstones and recently diagnosed leukemia at [facility] few weeks ago, supposed to follow with Dr. Shea on of this month came to ER with low hemoglobin. Patient had CBC done at Dr. St's office yesterday which found that hemoglobin was around [address] Ryder's office called him to come to the hospital. Patient was admitted to the hospital in in December 2017 for acute pancreatitis and was found to have gallstones. Patient was transferred to [facility] at the time for bone marrow biopsy. Patient has been having every weekly labs since then and had transfusions prior. Patient has been having abdominal issues for a long time and also was suspected to have IBS. Patient denied any chest pain or shortness of breath. Patient has lost about 40 pounds during the last 2 months. Patient denied any headache or dizziness. Patient does have nausea. No episodes of vomiting. Denied any worsening abdominal pain. No dysuria or hematuria. No hematemesis or melena. Chest x-ray showed no acute cardio pulmonary process EKG normal sinus rhythm Review of Systems Constitutional: Patient denies any fever or chills . Patient does have generalized weakness and weight loss Abdomen: Patient denied nausea vomiting and diarrhea and abdominal pain. Cardiovascular: Patient denies any chest pain or short of breath no palpitations. Respiratory: patient denied any cough is from production. No shortness of breath Neurologic: Patient denied any numbness or tingling headache. Musculoskeletal: Patient denies any complaints of joint swelling or deformity. Skin: Negative Psychiatric: Negative Endocrine: No heat or cold intolerance. No recent weight gain. Genitourinary: No dysuria or hematuria. All other 14 point ROS negative except the above Past Medical History Additional Past Medical History / Comment(s): IBS, skin cancer, pancreatitis History of Any Multi-Drug Resistant Organisms: None Reported Additional Past Surgical History / Comment(s): Skin cancer removal Past Anesthesia/Blood Transfusion Reactions: No Reported Reaction Past Psychological History: Depression Smoking Status: Former smoker Past Alcohol Use History: None Reported Past Drug Use History: None Reported Medications and Allergies Home Medications Medication Instructions Recorded Confirmed Type Pantoprazole [Protonix] 40 mg PO DAILY #30 tablet. 01/11/18 02/15/18 Rx Acetaminophen Tab [Tylenol Tab] 1,000 mg PO Q6HR PRN 01/27/18 02/15/18 History Ascorbic Acid [Vitamin C] 500 mg PO DAILY 02/15/18 02/15/18 History Iron Otc(Unknown) 1 tab PO BID 02/15/18 02/15/18 History Allergies Allergy/AdvReac Type Severity Reaction Status Date / Time Penicillins Allergy Dyspnea Verified 02/15/18 11:41 Physical Exam Vitals: Vital Signs Temp Pulse Pulse Resp BP Pulse Ox 02/15/18 14:39 97.8 F 94 18 113/59 96 02/15/18 13:23 91 18 113/56 97 02/15/18 11:10 93 18 120/56 99 02/15/18 10:33 111 H 02/15/18 10:08 97.5 F L 111 H 18 130/74 98 Intake and Output 02/14/18 02/15/18 02/15/18 22:59 06:59 14:59 Other: Weight 89.358 kg PHYSICAL EXAMINATION: Patient is lying in the bed comfortably, no acute distress, awake alert and oriented.. HEENT: Normocephalic. Neck is supple. Pupils reactive. Nostrils clear. Oral cavity is moist. Ears reveal no drainage. Neck reveals no JVD, carotid bruits, or thyromegaly. CHEST EXAMINATION: Trachea is central. Symmetrical expansion. Lung mayer clear to auscultation and percussion. CARDIAC: Normal S1, S2 with no gallops. No murmurs ABDOMEN: Soft. Bowel sounds normal. No organomegaly. No abdominal bruits. Extremities: reveal no edema. No clubbing or cyanosis Neurologically awake, alert, oriented x3 with well-coordinated movements. No focal deficits noted Skin: No rash or skin lesions. Psychiatric: Coperative. Nonsuicidal Musculoskeletal: No joint swelling or deformity. Normal range of motion. Results CBC & Chem 7: 02/15/18 10:41 02/15/18 10:41 Labs: Abnormal Lab Results - Last 24 Hours (Table) 02/15/18 02/15/18 02/15/18 Range/Units 10:41 10:41 10:41 WBC 17.6 H (3.8-10.6) k/uL RBC 2.39 L (4.30-5.90) m/uL Hgb 7.0 L* (13.0-17.5) gm/dL Hct 20.8 L (39.0-53.0) % RDW 19.0 H (11.5-15.5) % Plt Count 71 L (150-450) k/uL Neutrophils # (Manual) 9.33 H (1.3-7.7) k/uL Monocytes # (Manual) 5.10 H (0-1.0) k/uL Metamyelocytes # (Man) 0.35 H (0) k/uL Myelocytes # (Manual) 0.70 H (0) k/uL Nucleated RBCs 2 H (0-0) /100 WBC PT (9.0-12.0) sec INR (<1.2) Potassium 3.0 L* (3.5-5.1) mmol/L Glucose 175 H (74-99) mg/dL ALT 19 L (21-72) U/L Total Creatine Kinase <20 L (55-170) U/L Total Protein 6.0 L (6.3-8.2) g/dL Albumin 3.0 L (3.5-5.0) g/dL 02/15/18 Range/Units 10:41 WBC (3.8-10.6) k/uL RBC (4.30-5.90) m/uL Hgb (13.0-17.5) gm/dL Hct (39.0-53.0) % RDW (11.5-15.5) % Plt Count (150-450) k/uL Neutrophils # (Manual) (1.3-7.7) k/uL Monocytes # (Manual) (0-1.0) k/uL Metamyelocytes # (Man) (0) k/uL Myelocytes # (Manual) (0) k/uL Nucleated RBCs (0-0) /100 WBC PT 12.6 H (9.0-12.0) sec INR 1.3 H (<1.2) Potassium (3.5-5.1) mmol/L Glucose (74-99) mg/dL ALT (21-72) U/L Total Creatine Kinase (55-170) U/L Total Protein (6.3-8.2) g/dL Albumin (3.5-5.0) g/dL Thrombosis Risk Factor Assmnt - DVT/VTE Prophylaxis DVT/VTE Prophylaxis: Mechanical Prophylaxis ordered Assessment and Plan Assessment: Anemia due to recently diagnosed leukemia Possible acute on chronic blood loss anemia Leukemia recently diagnosed at [facility] Thrombocytopenia History of pancreatitis Gallstones IBS Depression History of Skin cancers DVT prophylaxis with SCDs Plan: We will continue to monitor H&H and transfuse as needed. Oncology and GI was consulted for further evaluation. Otherwise we'll continue the home medications and further recommendations based on the clinical course. Time with Patient: Greater than 30
[2018-02-15 17:37] LABS: Gliadin AB IgA, Unit 8.6 U/mL
[2018-02-15] MEDS: SODIUM CHLORIDE 0.9% 1,000 ML IV SCH (17:44)
[2018-02-15 19:35] LABS: Amylase 69 U/L (30-110); Lipase 266 U/L (23-300)
[2018-02-15 23:38] LABS: Magnesium 1.7 mg/dL (1.6-2.3); Potassium 3.2 mmol/L (3.5-5.1)
[2018-02-15] MEDS ORDERED: Potassium Replacement Protocol 1 EACH MISC MISCELLANE PRN (23:55)
[2018-02-16] MEDS: POTASSIUM CHLORIDE ER 20 MEQ TAB.ER PO SCH ×5 (00:54→17:52)
[2018-02-16] MEDS: ACETAMINOPHEN TAB 325 MG TAB PO PRN (00:58)
[2018-02-16] MEDS: METOPROLOL TARTRATE 12.5 MG TAB PO SCH ×3 (00:59→21:13)
[2018-02-16] MEDS: SODIUM CHLORIDE 0.9% 1,000 ML IV SCH ×3 (04:03→21:14)
[2018-02-16 08:02] LABS: Anisocytosis Slight; MCH 28.9 pg (25.0-35.0); MCHC 32.8 g/dL (31.0-37.0); MCV 88.1 fL (80.0-100.0); Poikilocytosis Slight; RBC 2.15 m/uL (4.30-5.90); RDW 19.4 % (11.5-15.5); WBC 10.4 k/uL (3.8-10.6)
[2018-02-16 08:15] LABS: HGB 6.2 gm/dL (13.0-17.5)
[2018-02-16 08:16] LABS: Platelet Count 49 k/uL (150-450)
[2018-02-16] MEDS ORDERED: traMADol 50 MG TAB PO SCH (09:00)
[2018-02-16] MEDS ORDERED: FUROSEMIDE 10 MG/ML 2 ML VIAL IV ONE (09:00)
[2018-02-16] MEDS: traMADol 50 MG TAB PO PRN ×2 (09:22→21:12)
[2018-02-16] MEDS: PANTOPRAZOLE 40 MG TABLET PO SCH (09:23)
[2018-02-16 11:14] VITALS: BMI 29.0
[2018-02-16] MEDS: ASCORBIC ACID 500 MG TAB PO SCH (15:16)
[2018-02-16] MEDS: LOPERAMIDE 2 MG CAP PO PRN ×2 (15:53→21:27)
--- NOTE | 2018-02-16 16:09 | P.CONS ---
History of Present Illness - Reason for Consult Consult date: 02/16/18 leukemia Requesting physician: Elva Choi - Chief Complaint abnormal labs - History of Present Illness Mr. pEps is a pleasant 57 year old male pt we saw initially in consult on Dec 2017. He presented with complaints of progressive abdominal pain over the past 5 to 6 months, associated with increasing fatigue, weakness and fever with 15lb weight loss after changing diet to control IBS. Work up included CT AP, small gallstone mild infiltrate changes surrounding the pancreas, moderate small bowel wall thickening suspicious for nonspecific enteritis. 01/07/18 he underwent EGD and colonoscopy with biopsy, we were then consulted related to his abnormal blood counts and concern of blasts in peripheral blood. Dr. Shea reviewed the peripheral slide and found evidence of monocytosis, infrequent blasts, differential chronic myeloproliferative disorder vs acute leukemia, paln was to see pt and do bone marrow. Pt was back in ER in less then 2 weeks with persistent abdominal pain. Hgb was 6.7, platelet count 37, WBC 8.5. CT AP revealed increased inflammation around the area of the pancreas, so, pt was transfused and stabilized and with new findings on the CT the plan was to transfer him to [facility]. Pt sent to ER by PCP due to anemia. Pt states he had bone marrow at [facility] and states he was called and told he had leukemia, states appt with Dr. Shea on the . Pt has persistent GI "things", (pancreatitis, gallstones and IBS), denies nausea, vomting, hematemesis, no black or bloody stool, no pain with BMs , denies any other bleeding. He has not had fever, chills, appetite is rather poor, some SOB on exertion but, comfortable at rest, no palpitations or chest pains, mild lower extremity swelling. Pt is being transfused with PRBCs Review of Systems 10 point ROS as stated in HPI Past Medical History Past Medical History: Cancer Additional Past Medical History / Comment(s): IBS, skin cancer,leukemia pancreatitis History of Any Multi-Drug Resistant Organisms: None Reported Additional Past Surgical History / Comment(s): Skin cancer removal(nose), bone marrow biopsy and aspirate Past Anesthesia/Blood Transfusion Reactions: No Reported Reaction Smoking Status: Former smoker - Past Family History Mother Family Medical History: Eye Disorder, Hypertension, Thyroid Disorder Additional Family Medical History / Comment(s): macular degeneration Father Additional Family Medical History / Comment(s): - black lung Medications and Allergies Home Medications Medication Instructions Recorded Confirmed Type Pantoprazole [Protonix] 40 mg PO DAILY #30 tablet. 01/11/18 02/15/18 Rx Acetaminophen Tab [Tylenol Tab] 1,000 mg PO Q6HR PRN 01/27/18 02/15/18 History Ascorbic Acid [Vitamin C] 500 mg PO DAILY 02/15/18 02/15/18 History Iron Otc(Unknown) 1 tab PO BID 02/15/18 02/15/18 History Allergies Allergy/AdvReac Type Severity Reaction Status Date / Time Penicillins Allergy Dyspnea Verified 02/15/18 11:41 Physical Exam Vitals: Vital Signs Temp Pulse Pulse Resp BP BP Pulse Ox 02/16/18 11:11 98 F 73 18 96/50 96 02/16/18 10:41 97.4 F L 76 18 111/63 94 L 02/16/18 10:31 98.5 F 98 18 84/50 99 02/16/18 07:00 97.9 F 77 16 101/63 100 02/15/18 23:20 18 02/15/18 21:13 98.2 F 77 18 94/55 98 02/15/18 17:45 98.6 F 72 18 94/53 96 02/15/18 17:40 70 18 120/58 100 02/15/18 16:29 98.5 F 98 18 110/62 98 02/15/18 15:59 98.4 F 79 18 109/65 98 02/15/18 15:49 98.5 F 85 18 107/70 98 02/15/18 15:29 98.5 F 87 18 107/55 97 02/15/18 14:39 97.8 F 94 18 113/59 96 Intake and Output 02/15/18 02/16/18 02/16/18 22:59 06:59 14:59 Intake Total 310 310 Balance 310 310 Intake: Blood Product 310 310 Rc As-1 Unit 310 [id number] Rc As-1 Unit 310 [id number] Other: Voiding Method Toilet Toilet # Voids 1 1 # Bowel Movements 3 Weight 89.358 kg - Constitutional General appearance: average body habitus, cooperative, no acute distress - EENT Eyes: anicteric sclerae, EOMI, normal appearance ENT: normal oropharynx - Neck Neck: no lymphadenopathy - Respiratory Respiratory: bilateral: CTA - Cardiovascular Rhythm: regular Heart sounds: normal: S1, S2 Abnormal Heart Sounds: no systolic murmur, no diastolic murmur, no rub, no S3 Gallop, no S4 Gallop, no click, no other leg Peripheral Edema: bilateral: Trace - Gastrointestinal General gastrointestinal: no absent bowel sounds, no decreased bowel sounds, no distended, no hepatomegaly, no hyperactive bowel sounds, normal bowel sounds, no organomegaly, no rigid, no scaphoid, soft, no splenomegaly, no tenderness, no umbilical hernia, no ventral hernia - Integumentary Integumentary: pale - Neurologic Neurologic: CNII-XII intact - Musculoskeletal Musculoskeletal: generalized weakness, strength equal bilaterally - Psychiatric Psychiatric: A&O x's 3, appropriate affect, intact judgment & insight Results CBC & Chem 7: 02/16/18 07:01 02/16/18 03:05 Labs: Abnormal Lab Results - Last 24 Hours (Table) 02/15/18 02/15/18 02/16/18 Range/Units 10:41 23:00 03:05 RBC (4.30-5.90) m/uL Hgb (13.0-17.5) gm/dL Hct (39.0-53.0) % RDW (11.5-15.5) % Plt Count (150-450) k/uL Potassium 3.2 L 3.4 L (3.5-5.1) mmol/L Crossmatch See Detail 02/16/18 Range/Units 07:01 RBC 2.15 L (4.30-5.90) m/uL Hgb 6.2 L* (13.0-17.5) gm/dL Hct 19.0 L* (39.0-53.0) % RDW 19.4 H (11.5-15.5) % Plt Count 49 L* (150-450) k/uL Potassium (3.5-5.1) mmol/L Crossmatch Microbiology - Last 24 Hours (Table) 02/15/18 14:45 Urine Culture - Preliminary Urine,Voided Chest x-ray: report reviewed Assessment and Plan (1) Symptomatic anemia Narrative/Plan: Conservative transfusions with irradiated, CMV negative blood products. Will set pt up with a CBC schedule in our office so he can be transfused as an outpatient until diagnosis and treatment plan in place. Current Visit: Yes Status: Acute Priority: High Code(s): D64.9 - ANEMIA, UNSPECIFIED SNOMED Code(s): 172911184 (2) Leukocytosis (leucocytosis) Narrative/Plan: WBC was not dangerously elevated on admit, no acute intervention is needed at this time. Current Visit: Yes Status: Acute Priority: High Code(s): D72.829 - ELEVATED WHITE BLOOD CELL COUNT, UNSPECIFIED SNOMED Code(s): 328262799 (3) Leukemia Narrative/Plan: New diagnosis, pending final bone marrow report form [facility] for definitive diagnosis. Treatment plans pending Current Visit: Yes Status: Acute Priority: High Code(s): C95.90 - LEUKEMIA , UNSPECIFIED NOT HAVING ACHIEVED REMISSION SNOMED Code(s): 88698922 (4) Thrombocytopenia Narrative/Plan: If no bleeding no transfusion needed for platelet >10,000. Transfuse if bleeding, and keep platelets>50, 000 Use mechanical DVT prophylaxis Current Visit: Yes Status: Acute Priority: Medium Code(s): D69.6 - THROMBOCYTOPENIA, UNSPECIFIED SNOMED Code(s): 817962815
[2018-02-16] MEDS ORDERED: METOPROLOL TARTRATE 25 MG TAB PO STA (16:54)
[2018-02-16 20:44] LABS: Anisocytosis Slight; HCT 21.9 % (39.0-53.0); HGB 7.1 gm/dL (13.0-17.5); MCH 28.9 pg (25.0-35.0); MCHC 32.5 g/dL (31.0-37.0); MCV 88.8 fL (80.0-100.0); Mean Platelet Volume 12.1; Platelet Count 51 k/uL (150-450); Poikilocytosis Slight; RBC 2.47 m/uL (4.30-5.90); RDW 18.6 % (11.5-15.5)
[2018-02-16 21:16] LABS: Band Neutrophils % 5 %; Metamyelocytes % 1 %; Myelocytes % 2 %; Neutrophils % (M) 58 %; Nucleated Red Blood Cells 4 /100 WBC (0-0); Total Cells Counted 200
[2018-02-16 21:17] LABS: Anisocytosis (M) Present; Lymphocytes # (M) 1.34 k/uL (1.0-4.8); Monocytes # (M) 1.92 k/uL (0-1.0); Myelocytes # (M) 0.19 k/uL (0); Poikilocytosis (M) Present; Polychromasia Present; WBC 9.6 k/uL (3.8-10.6)
--- NOTE | 2018-02-16 21:21 | CONS ---
CONSULTATION DATE OF CONSULTATION: 02/16/18 REQUESTING PHYSICIAN: Dr. Strong. REASON FOR CONSULTATION: Anemia and diarrhea. HISTORY: The patient is a 57-year-old white male who was admitted to hospital with severe anemia and recent diagnosis of leukemia. He was admitted to [facility] in December of this year with nausea, vomiting, diarrhea, and progressive weight loss of 58 pounds associated with fever, chills and night sweats. He was evaluated by Dr. Stinson for which he underwent upper endoscopy as well as colonoscopy with biopsy that were unremarkable. Subsequently, his labs did show that he had abnormal CBC with in the peripheral blood and the patient was transferred to [facility] where he was admitted for 7 days. He states that he underwent a bone marrow biopsy and was diagnosed with acute leukemia and he cannot give any further details. In fact, he has an appointment to see Dr. Shea on February 22. In the meantime he continued to have lower abdominal discomfort associated with intermittent episodes of nausea, vomiting, and diarrhea. He came into the emergency room and subsequently admitted to the hospital for further evaluation. In the meantime, he was noted to have severe anemia with a hemoglobin a 7 and he is a currently receiving one unit of blood transfusion. He states that at home he was taking for his symptoms. He denies any rectal bleeding or melena. PAST MEDICAL HISTORY: Significant for IBS diagnosed about 6 months ago, acute leukemia diagnosed two weeks ago at [facility]. PAST SURGICAL HISTORY: Biopsy 2 weeks ago and skin cancer removal. MEDICATIONS: At home include Protonix, Tylenol, vitamin C, and iron supplements. FAMILY HISTORY: Mother had hypertension and thyroid disorder. Father had black lung. ALLERGIES: ALLERGIES TO PENICILLIN. REVIEW OF SYSTEMS: Cardiopulmonary: Denies any chest pain, shortness of breath. Genitourinary: Denies any dysuria, hematuria. Musculoskeletal: Unremarkable. ENT vision: Unremarkable. Constitutional: No weight loss. Gastroenterology: As mentioned above. Hematology as mentioned above. PHYSICAL EXAMINATION: He appears comfortable in no apparent distress. Vital signs stable. Blood pressure is 99/61, pulse 70, temperature 97. Conjunctivae pink, pale, sclerae anicteric. Oral cavity no lesions. Neck: No jugular venous distention or lymph node enlargement. Chest was clear to auscultation. Heart: Regular rate and rhythm. Abdomen: Soft, bowel sounds are positive. No organomegaly. Extremities: No pedal edema. Skin: No rashes. Neurological: Alert and oriented times three. No focal deficits. LABORATORY DATA: The labs from yesterday WBC 17.6, hemoglobin 7, platelets 71,000. PT 12.6, INR 1.3. LFTs are within normal limits. Repeat showed a hemoglobin of 6.2, and patient is currently receiving one unit of blood transfusion and platelets are down to 49,000. IMPRESSION: 1. Severe symptomatic anemia, patient states that he recently underwent a bone marrow biopsy as part of evaluation of anemia and thrombocytopenia and was diagnosed with leukemia and he has an appointment to see Dr. Shea on February 22. No records available at the time of this dictation. He is currently receiving one unit of blood transfusion. 2. Lower abdominal pain with intermittent diarrhea, on and off for the last six months duration. Recent upper endoscopy as well as colonoscopy with biopsy unremarkable. Most likely we are dealing with irritable bowel syndrome. RECOMMENDATIONS: 1. Agree with PRBC transfusion. 2. We will start the patient on Bentyl 10 mg twice daily. 3. 4. . 5. Records from [facility]. 6. . Thank you for this consultation. MMMAGNOLIAL / CHELLYN: [id number] /
--- NOTE | 2018-02-17 00:28 | P.PN ---
Subjective Progress Note Date: 02/16/18 Principal diagnosis: Symptomatic anemia Patient is a 57-year-old male with a known history of pancreatitis, gallstones and recently diagnosed leukemia at [facility] few weeks ago, supposed to follow with Dr. Shea on of this month came to ER with low hemoglobin. Patient had CBC done at Dr. St's office yesterday which found that hemoglobin was around [address] Ryder's office called him to come to the hospital. Patient was admitted to the hospital in in December 2017 for acute pancreatitis and was found to have gallstones. Patient was transferred to [facility] at the time for bone marrow biopsy. Patient has been having every weekly labs since then and had transfusions prior. Patient has been having abdominal issues for a long time and also was suspected to have IBS. Patient denied any chest pain or shortness of breath. Patient has lost about 40 pounds during the last 2 months. Patient denied any headache or dizziness. Patient does have nausea. No episodes of vomiting. Denied any worsening abdominal pain. No dysuria or hematuria. No hematemesis or melena. Chest x-ray showed no acute cardio pulmonary process EKG normal sinus rhythm 02/16/2018 Patient is still coming of shortness of breath no worsening. No implants of chest pain. Otherwise hemoglobin dropped to 6.2 today. Patient is being transferred with 1 unit of PRBC. Patient will be maintained on conservative irradiated blood transfusion as needed. Otherwise patient was seen by GI and previous endoscopy and colonoscopy biopsy reports are unremarkable. Symptomatic management for diarrhea Today afternoon patient was found to have tachycardia/atrial flutter and was transferred to telemetry unit and cardiology evaluation. No fever no chills. No vomiting. All other review of systems negative except the above Active Medications Generic Name Dose Route Start Last Admin Trade Name Freq PRN Reason Stop Dose Admin Acetaminophen 650 mg 02/15/18 14:05 02/16/18 00:58 Tylenol Tab PO 650 mg Q6HR PRN Administration Mild Pain or Fever > 100.5 Ascorbic Acid 500 mg 02/16/18 09:00 02/16/18 15:16 Vitamin C PO Not Given DAILY FANTASMA Sodium Chloride 1,000 mls @ 100 mls/hr 02/15/18 17:30 02/16/18 21:14 Saline 0.9% IV 100 mls/hr .Q10H FANTASMA Administration Loperamide HCl 2 mg 02/16/18 14:28 02/16/18 21:27 Imodium PO 2 mg QID PRN Administration Diarrhea Metoprolol Tartrate 12.5 mg 02/15/18 23:45 02/16/18 21:13 Lopressor PO 12.5 mg BID FANTASMA Administration Miscellaneous Information 1 each 02/15/18 23:55 Potassium Per Protocol MISCELLANE DAILY PRN Per Protocol Protocol Naloxone HCl 0.2 mg 02/15/18 14:05 Narcan IV Q2M PRN Opioid Reversal Pantoprazole Sodium 40 mg 02/16/18 07:30 02/16/18 09:23 Protonix PO 40 mg [id number] FANTASMA Administration Tramadol HCl 50 mg 02/16/18 08:41 02/16/18 21:12 Ultram PO 50 mg Q6H PRN Administration Mild to Moderate Pain Objective - Vital Signs Vital signs: Vital Signs Temp 97.5 F L 02/16/18 18:57 Pulse 87 02/16/18 18:57 Resp 15 02/16/18 18:57 BP 110/67 02/16/18 18:57 Pulse Ox 97 02/16/18 18:57 Intake & Output 02/16/18 02/16/18 02/17/18 06:59 18:59 06:59 Intake Total 1110 Balance 1110 Weight 89.358 kg Intake: Intake, IV Titration 800 Amount Sodium Chloride 0.9% 1, 800 000 ml @ 100 mls/hr IV . Q10H FANTASMA Rx#:[id number] Blood Product 310 Rc As-1 Unit 310 [id number] Other: Voiding Method Toilet Toilet # Voids 1 # Bowel Movements 3 - Exam PHYSICAL EXAMINATION: Patient is lying in the bed comfortably, no acute distress, awake alert and oriented.. HEENT: Normocephalic. Neck is supple. Pupils reactive. Nostrils clear. Oral cavity is moist. Ears reveal no drainage. Neck reveals no JVD, carotid bruits, or thyromegaly. CHEST EXAMINATION: Trachea is central. Symmetrical expansion. Lung mayer clear to auscultation and percussion. CARDIAC: Normal S1, S2 with no gallops. No murmurs ABDOMEN: Soft. Bowel sounds normal. No organomegaly. No abdominal bruits. Extremities: reveal no edema. No clubbing or cyanosis Neurologically awake, alert, oriented x3 with well-coordinated movements. No focal deficits noted Skin: No rash or skin lesions. Psychiatric: Coperative. Nonsuicidal Musculoskeletal: No joint swelling or deformity. Normal range of motion. - Labs CBC & Chem 7: 02/16/18 20:28 02/16/18 03:05 Labs: Abnormal Lab Results - Last 24 Hours (Table) 02/15/18 02/15/18 02/16/18 Range/Units 10:41 23:00 03:05 RBC (4.30-5.90) m/uL Hgb (13.0-17.5) gm/dL Hct (39.0-53.0) % RDW (11.5-15.5) % Plt Count (150-450) k/uL Monocytes # (Manual) (0-1.0) k/uL Metamyelocytes # (Man) (0) k/uL Myelocytes # (Manual) (0) k/uL Nucleated RBCs (0-0) /100 WBC Potassium 3.2 L 3.4 L (3.5-5.1) mmol/L Crossmatch See Detail 02/16/18 02/16/18 Range/Units 07:01 20:28 RBC 2.15 L 2.47 L (4.30-5.90) m/uL Hgb 6.2 L* 7.1 L (13.0-17.5) gm/dL Hct 19.0 L* 21.9 L (39.0-53.0) % RDW 19.4 H 18.6 H (11.5-15.5) % Plt Count 49 L* 51 L (150-450) k/uL Monocytes # (Manual) 1.92 H (0-1.0) k/uL Metamyelocytes # (Man) 0.10 H (0) k/uL Myelocytes # (Manual) 0.19 H (0) k/uL Nucleated RBCs 4 H (0-0) /100 WBC Potassium (3.5-5.1) mmol/L Crossmatch Microbiology - Last 24 Hours (Table) 02/15/18 19:12 Blood Culture - Preliminary Blood No Growth after 24 hours 02/15/18 14:45 Urine Culture - Final Urine,Voided Assessment and Plan Assessment: Anemia due to recently diagnosed leukemia. Awaiting final pathology report from [facility] Possible acute on chronic blood loss anemia and symptomatic anemia Leukemia recently diagnosed at [facility] Thrombocytopenia History of pancreatitis Gallstones IBS Depression History of Skin cancers DVT prophylaxis with SCDs Plan: We will continue to monitor H&H and transfuse as needed. Oncology and GI was consulted for further evaluation. Otherwise we'll continue the home medications and further recommendations based on the clinical course. Time with Patient: Greater than 30
[2018-02-17] MEDS: PANTOPRAZOLE 40 MG TABLET PO SCH (06:47)
[2018-02-17] MEDS: LOPERAMIDE 2 MG CAP PO PRN (08:19)
[2018-02-17] MEDS: METOPROLOL TARTRATE 12.5 MG TAB PO SCH ×2 (08:19→20:00)
[2018-02-17] MEDS: SODIUM CHLORIDE 0.9% 1,000 ML IV SCH ×2 (08:19→21:37)
[2018-02-17] MEDS: ASCORBIC ACID 500 MG TAB PO SCH (08:19)
[2018-02-17 10:41] LABS: Anion Gap 9 mmol/L; Blood Urea Nitrogen 10 mg/dL (9-20); Carbon Dioxide 26 mmol/L (22-30); Chloride 107 mmol/L (98-107); Glucose 132 mg/dL (74-99); Magnesium 1.7 mg/dL (1.6-2.3); Potassium 3.9 mmol/L (3.5-5.1); Sodium 142 mmol/L (137-145)
[2018-02-17 11:15] LABS: Anisocytosis Slight; HGB 7.7 gm/dL (13.0-17.5); Hypochromasia Slight; MCHC 32.2 g/dL (31.0-37.0); MCV 90.1 fL (80.0-100.0); Mean Platelet Volume 11.5; Poikilocytosis Slight; RBC 2.67 m/uL (4.30-5.90); RDW 18.7 % (11.5-15.5)
--- NOTE | 2018-02-17 11:50 | P.PN ---
Subjective Progress Note Date: 02/17/18 Principal diagnosis: Anemia This is a pleasant 57-year-old gentleman with no prior documented history of hypertension, no diabetes, no hyperlipidemia, nonsmoker. He was diagnosed with leukemia in December of this year. He also states that since that time he has lost approximately 40 pounds in weight. Patient states that he gets her regular blood draws, it was noted that he was significantly anemic, and for this reason was referred to come to the hospital for a blood transfusion. His EKG performed on arrival here showed a normal sinus rhythm with occasional PVCs. On review of his rhythm strips, patient is having episodes of tachycardia, with nonsustained VT, and what appears to be atrial tachycardia. According to the patient, he does notice that time, since his diagnosis in December, that he has occasional palpitations and feels his heart racing very fast. He states he did feel this shortly after his arrival here as well. For this reason a cardiology consultation was requested. Chest x-ray does not show any acute cardiopulmonary process. Blood pressure this morning 98 /50 with a heart rate in the 80s, afebrile, 97% on room air. White blood cell count on admission 17,000, 10.4 this morning. Hemoglobin 7.0 on admission, 6.2 yesterday, 7.7 this morning. Platelet count 71, 49, 51. Labs on admission, sodium 140, potassium 3.2, BUN 14, creatinine 1.0. Magnesium 1.7. Troponins are negative 3. Patient did have an echocardiogram performed when he was here in December, it revealed an ejection fraction of 40-45%. LAD was severely dilated. At the time of my examination this morning, patient just complains of feeling mildly weak, no other complaints. Objective - Vital Signs Vital signs: Vital Signs Temp 98.1 F 02/17/18 08:00 Pulse 78 02/17/18 08:00 Resp 18 02/17/18 08:00 BP 98/55 02/17/18 08:00 Pulse Ox 97 02/17/18 08:00 Intake & Output 02/16/18 02/17/18 02/17/18 18:59 06:59 18:59 Intake Total 1074 765 1770 Balance 9505 053 3630 Weight 89.358 kg 91.7 kg Intake: Intake, IV Titration 842 917 0563 Amount Sodium Chloride 0.9% 1, 082 684 9883 000 ml @ 100 mls/hr IV . Q10H [facility] Rx#:[id number] Oral 300 358 Blood Product 310 Rc As-1 Unit 310 [id number] Other: Voiding Method Toilet Toilet Toilet # Voids 1 1 # Bowel Movements 1 2 - Exam PHYSICAL EXAMINATION: HEENT: Head is atraumatic, normocephalic. Pupils equal, round. Neck is supple. There is no elevated jugular venous pressure. HEART EXAMINATION: Heart S1, S2 normal. No murmur or gallop heard. CHEST EXAMINATION: Lungs are clear to auscultation and precussion. No chest wall tenderness is noted on palpation or with deep breathing. ABDOMEN: Soft, nontender. Bowel sounds are heard. No organomegaly noted. EXTREMITIES: 2+ peripheral pulses with no evidence of peripheral edema and no calf tenderness noted. NEUROLOGIC patient is awake, alert and oriented -3. . - Labs CBC & Chem 7: 02/17/18 10:10 02/17/18 10:10 Labs: Abnormal Lab Results - Last 24 Hours (Table) 02/15/18 02/16/18 02/17/18 Range/Units 10:41 20:28 10:10 RBC 2.47 L (4.30-5.90) m/uL Hgb 7.1 L (13.0-17.5) gm/dL Hct 21.9 L (39.0-53.0) % RDW 18.6 H (11.5-15.5) % Plt Count 51 L (150-450) k/uL Monocytes # (Manual) 1.92 H (0-1.0) k/uL Metamyelocytes # (Man) 0.10 H (0) k/uL Myelocytes # (Manual) 0.19 H (0) k/uL Nucleated RBCs 4 H (0-0) /100 WBC Glucose 132 H (74-99) mg/dL Calcium 8.0 L (8.4-10.2) mg/dL Crossmatch See Detail 02/17/18 Range/Units 10:10 RBC 2.67 L (4.30-5.90) m/uL Hgb 7.7 L (13.0-17.5) gm/dL Hct 24.0 L (39.0-53.0) % RDW 18.7 H (11.5-15.5) % Plt Count (150-450) k/uL Monocytes # (Manual) (0-1.0) k/uL Metamyelocytes # (Man) (0) k/uL Myelocytes # (Manual) (0) k/uL Nucleated RBCs (0-0) /100 WBC Glucose (74-99) mg/dL Calcium (8.4-10.2) mg/dL Crossmatch Microbiology - Last 24 Hours (Table) 02/15/18 19:12 Blood Culture - Preliminary Blood No Growth after 24 hours 02/15/18 14:45 Urine Culture - Final Urine,Voided Assessment and Plan Plan: Assessment and plan #1 anemia, likely secondary to recently diagnosed leukemia #2 acute on chronic blood loss anemia #3 thrombocytopenia #4 history of pancreatitis #5 ventricular ectopy and atrial tachycardia #6 hypomagnesemia, hypokalemia Plan We will not repeat an echocardiogram with Doppler study as the patient recently had one in December which revealed an ejection fraction of 40-45%. We will continue patient on beta rodo, replace magnesium and potassium. Further recommendations to follow. DNP note has been reviewed, I agree with a documented findings and plan of care. Patient was seen and examined.
[2018-02-17 11:52] LABS: Band Neutrophils % 2 %; Metamyelocytes % 4 %; Myelocytes % 7 %; Neutrophils % (M) 44 %; Nucleated Red Blood Cells 3 /100 WBC (0-0); Promyelocytes % 2 %; Total Cells Counted 200
[2018-02-17 11:53] LABS: Eosinophils # (M) 0.51 k/uL (0-0.7); Lymphocytes # (M) 1.52 k/uL (1.0-4.8); Monocytes # (M) 1.92 k/uL (0-1.0); Myelocytes # (M) 0.71 k/uL (0); WBC 10.1 k/uL (3.8-10.6)
[2018-02-17 11:55] LABS: Large Platelets Present; Platelet Count 48 k/uL (150-450); Polychromasia Present
--- NOTE | 2018-02-17 12:00 | PN ---
PROGRESS NOTE DATE OF SERVICE: 02/17/2018 The patient is a 57-year-old pleasant white male admitted to the hospital with abdominal pain, diarrhea, and severe symptomatic anemia requiring 2 units of blood transfusion yesterday. He was recently diagnosed with leukemia and Oncology is following the patient closely. Since being in the hospital, he has been complaining of lower abdominal pain and diarrhea. He did have an EGD and colonoscopy by Dr. Stinson in December of this year for the same symptoms, which were unremarkable. Biopsies were negative. He is being treated for possible irritable bowel syndrome. He has been taking Imodium 1 tablet twice daily and still had about 4 loose bowel movements yesterday. He had no rectal bleeding. Abdominal pain is improving. PHYSICAL EXAMINATION: On physical examination, he appears comfortable, no apparent distress. Vital signs are stable. Blood pressure is 115/67, pulse rate 81, temperature 97.6. HEENT examination unremarkable. Conjunctivae pink. Sclerae anicteric. Oral cavity no lesions. NECK: No JVD or lymph node enlargement. Chest was clear to auscultation. HEART: Regular rate and rhythm. ABDOMEN: Soft. Bowel sounds are positive. No organomegaly. EXTREMITIES: No pedal edema. SKIN: No rashes. NEURO: Alert and orient x3. No focal deficits. LABS: Labs done today: WBC is 9.6, hemoglobin 7.1, platelets are 51,000. Basic metabolic panel is within normal limits. IMPRESSION: 1. Acute leukemia, recently diagnosed for which Oncology is following the patient closely. 2. Severe symptomatic anemia, status post one unit of blood transfusion, last hemoglobin 7.1. 3. Lower abdominal pain with postprandial diarrhea for the last 6 months duration, possible irritable bowel syndrome. Recent EGD and colonoscopy with biopsies were unremarkable, on Imodium with not much help. RECOMMENDATIONS: 1. DC Imodium. 2. Start Bentyl 10 mg half hour before each meal and at bedtime. 3. High-fiber diet. 4. I will continue to follow the patient closely during his hospital stay. Thank you for this consultation. MMODL / CHELLYN: [id number] /
[2018-02-17] MEDS: MAGNESIUM SULFATE-D5W PMX 1 GM in DEXTROSE/WATER 1 100ML.BAG IVPB SCH ×2 (12:23→13:29)
[2018-02-17] MEDS: DICYCLOMINE 10 MG CAP PO SCH ×3 (12:24→21:14)
--- NOTE | 2018-02-17 14:12 | P.PN ---
Subjective Progress Note Date: 02/17/18 Principal diagnosis: anemia, leukemia Pt seen today in followup, he has not noticed much of a change in his abd discomfort but it is not worse, he denies significant SOB, he can ambulate Objective - Vital Signs Vital signs: Vital Signs Temp 98.1 F 02/17/18 12:00 Pulse 79 02/17/18 12:00 Resp 18 02/17/18 12:00 BP 118/68 02/17/18 12:00 Pulse Ox 98 02/17/18 12:00 Intake & Output 02/16/18 02/17/18 02/17/18 18:59 06:59 18:59 Intake Total 1870 768 3846 Balance 8124 464 9157 Weight 89.358 kg 91.7 kg Intake: Intake, IV Titration 201 214 9699 Amount Sodium Chloride 0.9% 1, 088 278 9977 000 ml @ 100 mls/hr IV . Q10H [facility] Rx#:[id number] Oral 300 716 Blood Product 310 Rc As-1 Unit 310 [id number] Other: Voiding Method Toilet Toilet Toilet # Voids 1 1 # Bowel Movements 1 2 - Exam NAD, respirations even and unlabored, A&Ox4. - Constitutional General appearance: Present: average body habitus, cooperative, no acute distress - Labs CBC & Chem 7: 02/17/18 10:10 02/17/18 10:10 Labs: Abnormal Lab Results - Last 24 Hours (Table) 02/15/18 02/16/18 02/17/18 Range/Units 10:41 20:28 10:10 RBC 2.47 L (4.30-5.90) m/uL Hgb 7.1 L (13.0-17.5) gm/dL Hct 21.9 L (39.0-53.0) % RDW 18.6 H (11.5-15.5) % Plt Count 51 L (150-450) k/uL Monocytes # (Manual) 1.92 H (0-1.0) k/uL Metamyelocytes # (Man) 0.10 H (0) k/uL Myelocytes # (Manual) 0.19 H (0) k/uL Promyelocytes # (Man) (0) k/uL Blast Cells # (Man) (0) k/uL Nucleated RBCs 4 H (0-0) /100 WBC Glucose 132 H (74-99) mg/dL Calcium 8.0 L (8.4-10.2) mg/dL Crossmatch See Detail 02/17/18 Range/Units 10:10 RBC 2.67 L (4.30-5.90) m/uL Hgb 7.7 L (13.0-17.5) gm/dL Hct 24.0 L (39.0-53.0) % RDW 18.7 H (11.5-15.5) % Plt Count 48 L* (150-450) k/uL Monocytes # (Manual) 1.92 H (0-1.0) k/uL Metamyelocytes # (Man) 0.40 H (0) k/uL Myelocytes # (Manual) 0.71 H (0) k/uL Promyelocytes # (Man) 0.20 H (0) k/uL Blast Cells # (Man) 0.40 H (0) k/uL Nucleated RBCs 3 H (0-0) /100 WBC Glucose (74-99) mg/dL Calcium (8.4-10.2) mg/dL Crossmatch Microbiology - Last 24 Hours (Table) 02/15/18 19:12 Blood Culture - Preliminary Blood No Growth after 24 hours 02/15/18 14:45 Urine Culture - Final Urine,Voided Assessment and Plan (1) Symptomatic anemia Narrative/Plan: Pt is not having severe anemia symptoms at this time, his Hgb is 7.1 post transfusion. He will be seeing Dr. Shea in 5 days ion the office, he will have labs checked and will be conservatively transfused. Can be transfused outpatient if hemodynamically stable CBC in AM Current Visit: Yes Status: Acute Priority: High Code(s): D64.9 - ANEMIA, UNSPECIFIED SNOMED Code(s): 949135095 (2) Leukocytosis (leucocytosis) Narrative/Plan: Secondary to leukemia, final diagnosis pending bone marrow. Treatment plans will be discussed at his appt with Dr. Shea once final diagnosis has been made Current Visit: Yes Status: Acute Priority: High Code(s): D72.829 - ELEVATED WHITE BLOOD CELL COUNT, UNSPECIFIED SNOMED Code(s): 722773319 (3) Leukemia Current Visit: Yes Status: Acute Priority: High Code(s): C95.90 - LEUKEMIA , UNSPECIFIED NOT HAVING ACHIEVED REMISSION SNOMED Code(s): 75281550 (4) Thrombocytopenia Narrative/Plan: stable, no acute intervention Current Visit: Yes Status: Acute Priority: Medium Code(s): D69.6 - THROMBOCYTOPENIA, UNSPECIFIED SNOMED Code(s): 900400971 Plan: Pt is ok from a Hem/Onc standpoint to be discharged once cleared with IM and consulting physicians He has f/u in 5 days.
[2018-02-17] MEDS: traMADol 50 MG TAB PO PRN (19:54)
--- NOTE | 2018-02-18 00:38 | P.PN ---
Subjective Progress Note Date: 02/17/18 Principal diagnosis: Symptomatic anemia Patient is a 57-year-old male with a known history of pancreatitis, gallstones and recently diagnosed leukemia at [facility] few weeks ago, supposed to follow with Dr. Shea on of this month came to ER with low hemoglobin. Patient had CBC done at Dr. St's office yesterday which found that hemoglobin was around [address] Ryder's office called him to come to the hospital. Patient was admitted to the hospital in in December 2017 for acute pancreatitis and was found to have gallstones. Patient was transferred to [facility] at the time for bone marrow biopsy. Patient has been having every weekly labs since then and had transfusions prior. Patient has been having abdominal issues for a long time and also was suspected to have IBS. Patient denied any chest pain or shortness of breath. Patient has lost about 40 pounds during the last 2 months. Patient denied any headache or dizziness. Patient does have nausea. No episodes of vomiting. Denied any worsening abdominal pain. No dysuria or hematuria. No hematemesis or melena. Chest x-ray showed no acute cardio pulmonary process EKG normal sinus rhythm 02/16/2018 Patient is still coming of shortness of breath no worsening. No implants of chest pain. Otherwise hemoglobin dropped to 6.2 today. Patient is being transferred with 1 unit of PRBC. Patient will be maintained on conservative irradiated blood transfusion as needed. Otherwise patient was seen by GI and previous endoscopy and colonoscopy biopsy reports are unremarkable. Symptomatic management for diarrhea Today afternoon patient was found to have tachycardia/atrial flutter and was transferred to telemetry unit and cardiology evaluation. No fever no chills. No vomiting. 02/17/2018 Patient is lying in the bed comfortable. Feels little weak. Otherwise hemoglobin is fairly stable at 7.7. Patient was found have been regular ectopy and atrial tachycardia. Patient's heart rate is better controlled with metoprolol 12.5 mg twice a day. Cardiology and oncology is following. We'll monitor his and his tomorrow. Anticipate discharge. Hemoglobin is stable. Blood transfusion with irradiated PRBC if needed All other review of systems negative except the above Active Medications Active Medications Generic Name Dose Route Start Last Admin Trade Name Freq PRN Reason Stop Dose Admin Acetaminophen 650 mg 02/15/18 14:05 02/16/18 00:58 Tylenol Tab PO 650 mg Q6HR PRN Administration Mild Pain or Fever > 100.5 Ascorbic Acid 500 mg 02/16/18 09:00 02/17/18 08:19 Vitamin C PO 500 mg DAILY [facility] Administration Dicyclomine HCl 10 mg 02/17/18 11:30 02/17/18 21:14 Bentyl PO 10 mg TID [facility] Administration Sodium Chloride 1,000 mls @ 100 mls/hr 02/15/18 17:30 02/17/18 21:37 Saline 0.9% IV 100 mls/hr .Q10H [facility] Administration Metoprolol Tartrate 12.5 mg 02/15/18 23:45 02/17/18 20:00 Lopressor PO 12.5 mg BID [facility] Administration Miscellaneous Information 1 each 02/15/18 23:55 Potassium Per Protocol MISCELLANE DAILY PRN Per Protocol Protocol Naloxone HCl 0.2 mg 02/15/18 14:05 Narcan IV Q2M PRN Opioid Reversal Pantoprazole Sodium 40 mg 02/16/18 07:30 02/17/18 06:47 Protonix PO 40 mg [id number] [facility] Administration Tramadol HCl 50 mg 02/16/18 08:41 02/17/18 19:54 Ultram PO 50 mg Q6H PRN Administration Mild to Moderate Pain Objective - Vital Signs Vital signs: Vital Signs Temp 98.5 F 02/17/18 19:41 Pulse 83 02/17/18 20:00 Resp 21 02/17/18 20:00 BP 114/59 02/17/18 19:41 Pulse Ox 97 02/17/18 19:41 Intake & Output 02/17/18 02/17/18 02/18/18 06:59 18:59 06:59 Intake Total 400 2796 400 Balance 400 2796 400 Weight 91.7 kg Intake: Intake, IV Titration 100 1400 400 Amount Magnesium Sulfate-D5w Pmx 200 1 gm In Dextrose/Water 1 100ml.bag @ 100 mls/hr IVPB Q1H [facility] Rx#: [id number] Sodium Chloride 0.9% 1, 100 1200 400 000 ml @ 100 mls/hr IV . Q10H [facility] Rx#:[id number] Oral 300 1396 Other: Voiding Method Toilet Toilet Toilet # Voids 1 1 1 # Bowel Movements 1 1 - Exam PHYSICAL EXAMINATION: Patient is lying in the bed comfortably, no acute distress, awake alert and oriented.. HEENT: Normocephalic. Neck is supple. Pupils reactive. Nostrils clear. Oral cavity is moist. Ears reveal no drainage. Neck reveals no JVD, carotid bruits, or thyromegaly. CHEST EXAMINATION: Trachea is central. Symmetrical expansion. Lung mayer clear to auscultation and percussion. CARDIAC: Normal S1, S2 with no gallops. No murmurs ABDOMEN: Soft. Bowel sounds normal. No organomegaly. No abdominal bruits. Extremities: reveal no edema. No clubbing or cyanosis Neurologically awake, alert, oriented x3 with well-coordinated movements. No focal deficits noted Skin: No rash or skin lesions. Psychiatric: Coperative. Nonsuicidal Musculoskeletal: No joint swelling or deformity. Normal range of motion. - Labs CBC & Chem 7: 02/17/18 10:10 02/17/18 10:10 Labs: Abnormal Lab Results - Last 24 Hours (Table) 02/17/18 02/17/18 Range/Units 10:10 10:10 RBC 2.67 L (4.30-5.90) m/uL Hgb 7.7 L (13.0-17.5) gm/dL Hct 24.0 L (39.0-53.0) % RDW 18.7 H (11.5-15.5) % Plt Count 48 L* (150-450) k/uL Monocytes # (Manual) 1.92 H (0-1.0) k/uL Metamyelocytes # (Man) 0.40 H (0) k/uL Myelocytes # (Manual) 0.71 H (0) k/uL Promyelocytes # (Man) 0.20 H (0) k/uL Blast Cells # (Man) 0.40 H (0) k/uL Nucleated RBCs 3 H (0-0) /100 WBC Glucose 132 H (74-99) mg/dL Calcium 8.0 L (8.4-10.2) mg/dL Microbiology - Last 24 Hours (Table) 02/15/18 19:12 Blood Culture - Preliminary Blood No Growth after 48 hours Assessment and Plan Assessment: Ventricular ectopy and atrial tachycardia. Improved with beta blockers Anemia due to recently diagnosed leukemia. Awaiting final pathology report from [facility] Possible acute on chronic blood loss anemia and symptomatic anemia Leukemia recently diagnosed at [facility] Thrombocytopenia History of pancreatitis Gallstones IBS with intermittent diarrhea Depression History of Skin cancers DVT prophylaxis with SCDs Plan: We will continue to monitor H&H and transfuse as needed. Continue with metoprolol 12.5 mg twice a day. Continue with Bentyl and high fiber as per GI recommendations Cardiology and oncology is following. Otherwise we'll continue the home medications and further recommendations based on the clinical course. Time with Patient: Greater than 30
[2018-02-18] MEDS: traMADol 50 MG TAB PO PRN (04:41)
[2018-02-18] MEDS: SODIUM CHLORIDE 0.9% 1,000 ML IV SCH ×2 (04:48→12:39)
[2018-02-18] MEDS: PANTOPRAZOLE 40 MG TABLET PO SCH (06:27)
[2018-02-18 07:07] LABS: ALT 23 U/L (21-72); AST 13 U/L (17-59); Albumin 2.6 g/dL (3.5-5.0); Alkaline Phosphatase 92 U/L (38-126); Anion Gap 10 mmol/L; Blood Urea Nitrogen 8 mg/dL (9-20); Carbon Dioxide 26 mmol/L (22-30); Chloride 106 mmol/L (98-107); Glucose 114 mg/dL (74-99); Magnesium 1.9 mg/dL (1.6-2.3); Potassium 3.4 mmol/L (3.5-5.1); Sodium 142 mmol/L (137-145); Total Protein 5.6 g/dL (6.3-8.2)
[2018-02-18 07:08] LABS: Anisocytosis Slight; HCT 24.2 % (39.0-53.0); HGB 8.2 gm/dL (13.0-17.5); MCHC 33.8 g/dL (31.0-37.0); MCV 88.6 fL (80.0-100.0); Mean Platelet Volume 11.3; Poikilocytosis Slight; RBC 2.73 m/uL (4.30-5.90); RDW 19.2 % (11.5-15.5)
[2018-02-18] MEDS: ASCORBIC ACID 500 MG TAB PO SCH (07:10)
[2018-02-18] MEDS: METOPROLOL TARTRATE 12.5 MG TAB PO SCH (07:11)
[2018-02-18] MEDS: DICYCLOMINE 10 MG CAP PO SCH (07:11)
[2018-02-18 07:14] LABS: Platelet Count 59 k/uL (150-450)
[2018-02-18] MEDS: ACETAMINOPHEN TAB 325 MG TAB PO PRN (07:17)
[2018-02-18 07:31] VITALS: RESP 16
[2018-02-18] MEDS: POTASSIUM CHLORIDE ER 20 MEQ TAB.ER PO SCH ×2 (08:06→09:03)
[2018-02-18 08:11] LABS: Band Neutrophils % 3 %; Blast Cells # (M) 0.11 k/uL (0); Eosinophils # (M) 0.11 k/uL (0-0.7); Lymphocytes # (M) 1.76 k/uL (1.0-4.8); Metamyelocytes # (M) 0.33 k/uL (0); Metamyelocytes % 3 %; Monocytes # (M) 2.97 k/uL (0-1.0); Myelocytes # (M) 0.33 k/uL (0); Myelocytes % 3 %; Neutrophils % (M) 47 %; Nucleated Red Blood Cells 3 /100 WBC (0-0); Total Cells Counted 200
[2018-02-18 08:15] LABS: Large Platelets Present; Polychromasia Present
[2018-02-18] MEDS ORDERED: MAGNESIUM OXIDE 400 MG TAB PO SCH (10:30)
[2018-02-18 11:47] VITALS: BP 108/65; PULSE 80; TEMP 98.3
--- NOTE | 2018-02-18 13:45 | P.PN ---
Subjective Progress Note Date: 02/18/18 Principal diagnosis: Anemia This is a pleasant 57-year-old gentleman with no prior documented history of hypertension, no diabetes, no hyperlipidemia, nonsmoker. He was diagnosed with leukemia in December of this year. He also states that since that time he has lost approximately 40 pounds in weight. Patient states that he gets her regular blood draws, it was noted that he was significantly anemic, and for this reason was referred to come to the hospital for a blood transfusion. His EKG performed on arrival here showed a normal sinus rhythm with occasional PVCs. On review of his rhythm strips, patient is having episodes of tachycardia, with nonsustained VT, and what appears to be atrial tachycardia. According to the patient, he does notice that time, since his diagnosis in December, that he has occasional palpitations and feels his heart racing very fast. He states he did feel this shortly after his arrival here as well. For this reason a cardiology consultation was requested. Chest x-ray does not show any acute cardiopulmonary process. Blood pressure this morning 98 /50 with a heart rate in the 80s, afebrile, 97% on room air. White blood cell count on admission 17,000, 10.4 this morning. Hemoglobin 7.0 on admission, 6.2 yesterday, 7.7 this morning. Platelet count 71, 49, 51. Labs on admission, sodium 140, potassium 3.2, BUN 14, creatinine 1.0. Magnesium 1.7. Troponins are negative 3. Patient did have an echocardiogram performed when he was here in December, it revealed an ejection fraction of 40-45%. LA was severely dilated. At the time of my examination this morning, patient just complains of feeling mildly weak, no other complaints. 02/18/2018 Patient was seen and examined this morning, feeling well overall. Still mildly weak. Blood pressure 108/60, heart rate in the 80s. Still having intermittent PVCs and atrial tachycardia. Ostium level today is 3.4, magnesium 1.9. Objective - Vital Signs Vital signs: Vital Signs Temp 98.3 F 02/18/18 11:46 Pulse 80 02/18/18 11:46 Resp 16 02/18/18 11:46 BP 108/65 02/18/18 11:46 Pulse Ox 98 02/18/18 11:46 Intake & Output 02/17/18 02/18/18 02/18/18 18:59 06:59 18:59 Intake Total 2796 1500 660 Output Total 225 Balance 2796 1500 435 Weight 92.6 kg Intake: Intake, IV Titration 1400 1200 Amount Magnesium Sulfate-D5w Pmx 200 1 gm In Dextrose/Water 1 100ml.bag @ 100 mls/hr IVPB Q1H [facility] Rx#: [id number] Sodium Chloride 0.9% 1, 1200 1200 000 ml @ 100 mls/hr IV . Q10H [facility] Rx#:[id number] Oral 1396 300 660 Output: Urine 225 Other: Voiding Method Toilet Toilet Toilet # Voids 1 2 1 # Bowel Movements 1 1 - Exam PHYSICAL EXAMINATION: HEENT: Head is atraumatic, normocephalic. Pupils equal, round. Neck is supple. There is no elevated jugular venous pressure. HEART EXAMINATION: Heart S1, S2 normal. No murmur or gallop heard. CHEST EXAMINATION: Lungs are clear to auscultation and precussion. No chest wall tenderness is noted on palpation or with deep breathing. ABDOMEN: Soft, nontender. Bowel sounds are heard. No organomegaly noted. EXTREMITIES: 2+ peripheral pulses with no evidence of peripheral edema and no calf tenderness noted. NEUROLOGIC patient is awake, alert and oriented -3. . - Labs CBC & Chem 7: 02/18/18 06:41 02/18/18 06:41 Labs: Abnormal Lab Results - Last 24 Hours (Table) 02/18/18 02/18/18 Range/Units 06:41 06:41 WBC 11.0 H (3.8-10.6) k/uL RBC 2.73 L (4.30-5.90) m/uL Hgb 8.2 L (13.0-17.5) gm/dL Hct 24.2 L (39.0-53.0) % RDW 19.2 H (11.5-15.5) % Plt Count 59 L (150-450) k/uL Monocytes # (Manual) 2.97 H (0-1.0) k/uL Metamyelocytes # (Man) 0.33 H (0) k/uL Myelocytes # (Manual) 0.33 H (0) k/uL Blast Cells # (Man) 0.11 H (0) k/uL Nucleated RBCs 3 H (0-0) /100 WBC Potassium 3.4 L (3.5-5.1) mmol/L BUN 8 L (9-20) mg/dL Glucose 114 H (74-99) mg/dL Calcium 8.0 L (8.4-10.2) mg/dL AST 13 L (17-59) U/L Total Protein 5.6 L (6.3-8.2) g/dL Albumin 2.6 L (3.5-5.0) g/dL Microbiology - Last 24 Hours (Table) 02/15/18 19:12 Blood Culture - Preliminary Blood No Growth after 48 hours Assessment and Plan Plan: Assessment and plan #1 anemia, likely secondary to recently diagnosed leukemia #2 acute on chronic blood loss anemia #3 thrombocytopenia #4 history of pancreatitis #5 ventricular ectopy and atrial tachycardia #6 hypomagnesemia, hypokalemia Plan From cardiology's perspective, we will continue current dose of beta rodo. We will also start the patient on oral magnesium and potassium replacement. A follow-up appointment will be made in the office 4 weeks post discharge. DNP note has been reviewed, I agree with a documented findings and plan of care. Patient was seen and examined.
[2018-02-19] MEDS ORDERED: POTASSIUM CHLORIDE ER 20 MEQ TAB.ER PO SCH (09:00)
--- NOTE | 2018-02-21 13:06 | P.CRDCN ---
History of Present Illness Consult date: 02/21/18 Requesting physician: Sheryl Medina Reason for Consult (text): Arrhythmia Chief complaint: Anemia History of present illness: This is a pleasant 57-year-old gentleman with no prior documented history of hypertension, no diabetes, no hyperlipidemia, nonsmoker. He was diagnosed with leukemia in December of this year. He also states that since that time he has lost approximately 40 pounds in weight. Patient states that he gets her regular blood draws, it was noted that he was significantly anemic, and for this reason was referred to come to the hospital for a blood transfusion. His EKG performed on arrival here showed a normal sinus rhythm with occasional PVCs. On review of his rhythm strips, patient is having episodes of tachycardia, with nonsustained VT, and what appears to be atrial tachycardia. According to the patient, he does notice that time, since his diagnosis in December, that he has occasional palpitations and feels his heart racing very fast. He states he did feel this shortly after his arrival here as well. For this reason a cardiology consultation was requested. Chest x-ray does not show any acute cardiopulmonary process. Blood pressure this morning 98 /50 with a heart rate in the 80s, afebrile, 97% on room air. White blood cell count on admission 17,000, 10.4 this morning. Hemoglobin 7.0 on admission, 6.2 yesterday, 7.7 this morning. Platelet count 71, 49, 51. Labs on admission, sodium 140, potassium 3.2, BUN 14, creatinine 1.0. Magnesium 1.7. Troponins are negative 3. Patient did have an echocardiogram performed when he was here in December, it revealed an ejection fraction of 40-45%. LAD was severely dilated. At the time of my examination this morning, patient just complains of feeling mildly weak, no other complaints. Past Medical History Past Medical History: Cancer Additional Past Medical History / Comment(s): IBS, skin cancer,leukemia pancreatitis History of Any Multi-Drug Resistant Organisms: None Reported Additional Past Surgical History / Comment(s): Skin cancer removal(nose), bone marrow biopsy and aspirate Past Anesthesia/Blood Transfusion Reactions: No Reported Reaction Smoking Status: Former smoker - Past Family History Mother Family Medical History: Eye Disorder, Hypertension, Thyroid Disorder Additional Family Medical History / Comment(s): macular degeneration Father Additional Family Medical History / Comment(s): - black lung Medications and Allergies Home Medications Medication Instructions Recorded Confirmed Type Pantoprazole [Protonix] 40 mg PO DAILY #30 tablet. 01/11/18 02/15/18 Rx Ascorbic Acid [Vitamin C] 500 mg PO DAILY 02/15/18 02/15/18 History Iron Otc(Unknown) 1 tab PO BID 02/15/18 02/15/18 History Dicyclomine [Bentyl] 10 mg PO TID #30 cap 02/18/18 Rx Magnesium Oxide [Mag-Ox] 400 mg PO BID #60 tab 02/18/18 Rx Metoprolol Tartrate [Lopressor] 12.5 mg PO BID #60 tab 02/18/18 Rx Potassium Chloride ER [K-Dur 20] 20 meq PO DAILY #30 tab.er.prt 02/18/18 Rx Allergies Allergy/AdvReac Type Severity Reaction Status Date / Time Penicillins Allergy Dyspnea Verified 02/15/18 11:41 Physical Exam PHYSICAL EXAMINATION: HEENT: Head is atraumatic, normocephalic. Pupils equal, round. Neck is supple. There is no elevated jugular venous pressure. HEART EXAMINATION: Heart S1, S2 normal. No murmur or gallop heard. CHEST EXAMINATION: Lungs are clear to auscultation and precussion. No chest wall tenderness is noted on palpation or with deep breathing. ABDOMEN: Soft, nontender. Bowel sounds are heard. No organomegaly noted. EXTREMITIES: 2+ peripheral pulses with no evidence of peripheral edema and no calf tenderness noted. NEUROLOGIC patient is awake, alert and oriented -3. Results 02/18/18 06:41 02/18/18 13:47 02/18/18 06:41 02/18/18 13:47 EKG Interpretations (text) EKG shows a normal sinus rhythm with frequent PVCs. Assessment and Plan Plan: Assessment and plan #1 anemia, likely secondary to recently diagnosed leukemia #2 acute on chronic blood loss anemia #3 thrombocytopenia #4 history of pancreatitis #5 ventricular ectopy and atrial tachycardia #6 hypomagnesemia, hypokalemia Plan From cardiology's perspective, we will continue current dose of beta rodo. We will also start the patient on oral magnesium and potassium replacement. A follow-up appointment will be made in the office 4 weeks post discharge. DNP note has been reviewed, I agree with a documented findings and plan of care. Patient was seen and examined.
== END 2018-02-18 15:23 | disposition home or self-care (01) | DRG 835 ==
LOC: EC 10:05 → 5MS5E 14:05 → 5ONC 14:42 → 6SEL 02-16 18:24
PROVIDERS: ADMIT Hospitalist; ATTEND Hospitalist
DX: C95.00 Acute leukemia of unspecified cell type not having achieved remission (principal); I47.1 Supraventricular tachycardia; D69.6 Thrombocytopenia, unspecified; E83.42 Hypomagnesemia; D62 Acute posthemorrhagic anemia; D63.0 Anemia in neoplastic disease; I49.3 Ventricular premature depolarization; E87.6 Hypokalemia; K80.20 Calculus of gallbladder without cholecystitis without obstruction; F32.9 Major depressive disorder, single episode, unspecified; K58.0 Irritable bowel syndrome with diarrhea; Z87.891 Personal history of nicotine dependence; Z85.828 Personal history of other malignant neoplasm of skin; Z79.899 Other long term (current) drug therapy; Z88.0 Allergy status to penicillin; Z82.49 Family history of ischemic heart disease and other diseases of the circulatory system; Z98.890 Other specified postprocedural states
CPT/HCPCS: 36415; 71046; 80048; 80053; 82150; 82550; 82553; 83516; 83690; 83735; 84132; 84484; 85025; 85027; 85610; 85730; 86850; 86900; 86901; 86920; 87040; 87086; 87324; 93005; 96361; 96374; 96375; 99285

== ENCOUNTER → 2018-03-01 | Outpatient (CLI) | payer OTHER ==
--- NOTE | 2018-03-01 13:07 | FL ---
EXAMINATION TYPE: FL UGI air w small bowel DATE OF EXAM: 03/01/2018 COMPARISON: NONE HISTORY: IBS, Diarrhea, Lower abdomen pain x couple of months. Significant weight loss (40 lbs) since 01/05. Diagnosed with leukemia. TECHNIQUE: A double contrast UGI study is performed with small bowel follow through. 1 package EZ ga s, 4 oz EZ HD Barium, 12 oz EZ Paque. 1 min/ 33 secs FL time. 38 fluoroscopic images were saved. FINDINGS: Loan Documentation Specialist image of the abdomen shows no evidence of dilated bowel. The esophagus shows normal motility and emptying into the stomach. No evidence of hiatal hernia or s tricture noted. The stomach shows normal distensibility and peristalsis. Thickening of the rugal folds is seen diffus vijay most pronounced within the gastric body. No evidence of any mass or ulcer disease. No significan t esophageal reflux was seen during real time performance of this study. The duodenal bulb and sweep are unremarkable. The small bowel study shows normal transit to the colon in less than 130 minutes. There is normal mu cosal fold pattern throughout the small bowel. There is no evidence of any stricture or filling defe ct noted. The terminal ileum is unremarkable. IMPRESSION: 1. Findings suggestive of mild gastritis with thickening of the rugal folds. 2. No evidence of stricture, abnormal outpouching, or hiatal hernia. No ulceration is identified. 3. The small bowel has a normal mucosal fold pattern without identifiable abnormality. 4. No evidence of abnormal small bowel to colonic transit time or bowel obstruction.
== END | disposition home or self-care (01) ==
LOC: RADFLMAIN 08:36
DX: K52.9 Noninfective gastroenteritis and colitis, unspecified (principal)
CPT/HCPCS: 74249

== ENCOUNTER → 2018-04-04 | Outpatient (CLI) | payer OTHER ==
--- NOTE | 2018-04-04 19:22 | ECHOF ---
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 This was a technically adequate study. The left ventricular size is normal. There is mild concentric left ventricular hypertrophy. There is mild global hypokinesis of LV . Overall left ventricular systolic function is mild-moderately i mpaired with, an EF between 40 - 45 %. The right ventricle is mildly enlarged. LA is moderately dilated 34-39 ml/m2 RA appears enlarged. Aortic valve is trileaflet and is mildly thickened. There is no evidence of aortic regurgitation. There is no evidence of aortic stenosis. The mitral valve leaflets are mildly thickened. Mild mitral annular calcification present. There is trace to mild mitral regurgitation. Trace tricuspid regurgitation present. Right ventricular systolic pressure is normal at < 35 mmHg. There is no evidence of pulmonary hypertension. Trace/mild (physiologic) pulmonic regurgitation. The aortic root size is normal. Normal inferior vena cava with normal inspiratory collapse consistent with estimated right atrial pre ssure of 5 mmHg. There is no pericardial effusion. CONCLUSIONS -------- 1. Sinus rhythm with extra systolic beats. 2. This was a technically adequate study. 3. The left ventricular size is normal. 4. There is mild concentric left ventricular hypertrophy. 5. There is mild global hypokinesis of LV . 6. Overall left ventricular systolic function is mild-moderately impaired with, an EF between 40 - 45 %. 7. The right ventricle is mildly enlarged. 8. LA is moderately dilated 34-39 ml/m2 9. RA appears enlarged. 10. Aortic valve is trileaflet and is mildly thickened. 11. The mitral valve leaflets are mildly thickened. 12. Mild mitral annular calcification present. 13. There is trace to mild mitral regurgitation. 14. Trace tricuspid regurgitation present. 15. Right ventricular systolic pressure is normal at < 35 mmHg. 16. There is no evidence of pulmonary hypertension. 17. Trace/mild (physiologic) pulmonic regurgitation. 18. The aortic root size is normal. 19. There is no pericardial effusion. TELEPHONE OPERATOR RECEPTIONIST: Salo Dumont RDCS
== END ==
LOC: RADECHMAIN 12:38
PROVIDERS: ATTEND Internal Medicine
DX: C93.10 Chronic myelomonocytic leukemia not having achieved remission (principal); I05.8 Other rheumatic mitral valve diseases
CPT/HCPCS: 93306

== ENCOUNTER → 2018-04-05 | Outpatient (CLI) | payer OTHER | END | disposition home or self-care (01) | LOC: CPPFTMAIN 10:17 | PROVIDERS: ATTEND Internal Medicine | DX: C92.10 Chronic myeloid leukemia, BCR/ABL-positive, not having achieved remission (principal) | CPT/HCPCS: 94060; 94726; 94729 ==

== ENCOUNTER → 2018-05-20 | Outpatient (CLI) | payer OTHER ==
[~2018-05-20] MED LIST: DOBUTamine DRIP for NUC MED 500 MG in DEXTROSE/WATER 1 250ML.BAG IV ONE; METOPROLOL TARTRATE 5 MG/5 ML VIAL IVP ONE
--- NOTE | 2018-05-20 13:03 | ECHOS ---
STRESS ECHOCARDIOGRAM DATE OF SERVICE: 05/20/2018 INDICATIONS: Preoperative BASELINE HEART RATE: 62 BASELINE BLOOD PRESSURE: 107/42 MAXIMUM HEART RATE: 145 MAXIMUM BLOOD PRESSURE: 186/74 85% MPHR: 139 100% MPHR: 164 MAXIMUM STAGE REACHED: 3 TOTAL EXERCISE TIME: 8:30 CLINICAL INFORMATION: Baseline EKG revealed ectopic atrial rhythm with poor R-wave progression over precordial leads. With the dobutamine administration as per protocol, the heart rate went up progressively and there were short runs of paroxysmal atrial fibrillation noted which were very brief and self-limited. His maximal heart rate was 145 beats per minute. There were no EKG changes to indicate ischemia and patient did not report any significant symptoms. By EKG criteria, this is considered as an unremarkable dobutamine stress test with short runs of paroxysmal atrial fibrillation that were noted. Baseline echo images revealed mild global decrease in contractility with estimated ejection fraction of about 40% by visual inspection. With dobutamine administration as per protocol, there was progressive increase in contractility noted and at peak exercise the estimated ejection fraction was about 55%- 60%, suggesting that there is no evidence of stress induced ischemia on this study. IMPRESSION: 1. By EKG criteria this is unremarkable dobutamine stress test. There were no EKG changes to indicate ischemia. Short runs of paroxysmal atrial fibrillation are noted which were self-limited. 2. Patient's baseline echo revealed no ejection fraction of about 40% with a global decrease in contractility. 3. This is a negative dobutamine stress echo because of increase in contractility involving all segments with dobutamine administration as per protocol in a progressive fashion. However, patient may have underlying nonischemic cardiomyopathy type picture and this should be looked at. MMODL / IJN: [id number] /
== END | disposition home or self-care (01) ==
LOC: RADNMMAIN 10:06
PROVIDERS: ATTEND Internal Medicine
DX: I48.0 Paroxysmal atrial fibrillation (principal); I25.9 Chronic ischemic heart disease, unspecified
CPT/HCPCS: 93351; J1250

== ENCOUNTER → 2018-12-23 | Outpatient (CLI) | payer OTHER ==
--- NOTE | 2018-12-24 16:57 | MR ---
EXAMINATION TYPE: MR radha/farhan wo con DATE OF EXAM: 12/23/2018 COMPARISON: None HISTORY: Neck and Low back Pain for Years CONTRAST: Performed utilizing 0 mL intravenous Gadavist gadolinium contrast. TECHNIQUE: Multiplanar multiecho imaging on a 3.0 Maricruz magnet is performed through the cervical spin e. FINDINGS: The craniovertebral junction is normal. Vertebral body alignment is normal. C7-T1: No focal disc herniation or significant disc bulge is evident. No spinal canal stenosis or n eural foraminal stenosis is present. C6-7: No focal disc herniation or significant disc bulge is evident. No spinal canal stenosis or abida ral foraminal stenosis is present. C5-6: No focal disc herniation or significant disc bulge is evident. No spinal canal stenosis or abida ral foraminal stenosis is present. C4-5: No focal disc herniation or significant disc bulge is evident. No spinal canal stenosis or abida ral foraminal stenosis is present. C3-4: No focal disc herniation or significant disc bulge is evident. No spinal canal stenosis or abida ral foraminal stenosis is present. C2-3: No focal disc herniation or significant disc bulge is evident. No spinal canal stenosis or abida ral foraminal stenosis is present. IMPRESSIONS: 1. Normal MRI cervical spine EXAMINATION TYPE: MR radha/farhan wo con DATE OF EXAM: 12/23/2018 COMPARISON: None HISTORY: Neck and Low back Pain for Years CONTRAST: 0 mL intravenous Gadavist. TECHNIQUE: Multiplanar, multisequence images of the lumbar spine were acquired. FINDINGS: Cord terminates at the L1 level. Distal spinal cord maintains normal signal. Disc height a nd vertebral body heights are preserved. Mild disc desiccation is present throughout the lumbar spine . L5-S1: No significant disc bulge or disc herniation. No spinal canal stenosis. No foraminal stenosi s. Facet hypertrophy is present greater on the right. Significant posterior lateral thecal sac compre ssion is not evident. L4-L5: No significant disc bulge or disc herniation. No spinal canal stenosis. No foraminal stenosi s. Some mild facet atrophy may be present. L3-L4: No significant disc bulge or disc herniation. No spinal canal stenosis. No foraminal stenosi s. L2-L3: No significant disc bulge or disc herniation. No spinal canal stenosis. No foraminal stenosi s. L1-L2: No significant disc bulge or disc herniation. No spinal canal stenosis. No foraminal stenosi s. T12-L1: No significant disc bulge or disc herniation. No spinal canal stenosis. No foraminal stenos is. IMPRESSION: 1. No spinal canal stenosis or neural foraminal stenosis. 2. Mild disc desiccation without loss of disc height. 3. Mild facet hypertrophy lower lumbar spine L4-5 L5-S1.
== END | disposition home or self-care (01) ==
LOC: RADMRIMAIN 18:48
PROVIDERS: ATTEND Internal Medicine
DX: M47.816 Spondylosis without myelopathy or radiculopathy, lumbar region (principal); M47.817 Spondylosis without myelopathy or radiculopathy, lumbosacral region; M54.2 Cervicalgia
CPT/HCPCS: 72141; 72148

== ENCOUNTER 2019-06-14 12:17 | Emergency (ER) | payer BC, OTHER ==
[2019-06-14 12:26] VITALS: BP 124/69; PULSE 71; RESP 18; TEMP 98.6
[2019-06-14] MEDS ORDERED: LIDOCAINE 1% INJ 10MG/ML (20 ML MDV) SQ ONE (12:41)
--- NOTE | 2019-06-14 12:41 | ED ---
General Adult HPI - General Chief complaint: Fall Stated complaint: Fall Time Seen by Provider: 06/14/19 12:29 Source: patient, family, RN notes reviewed Mode of arrival: ambulatory Limitations: no limitations - History of Present Illness Initial comments: Patient is a pleasant 59-year-old male presenting to the emergency department following a fall. Patient states he stepped on an uneven step and fell down. Last tetanus immunization was less than one year ago. Patient sustained abrasions to bilateral hands and knees. Patient states his glasses broke and caused laceration to the right side of the head. Patient denies any significant head injury. No loss of consciousness. No confusion or weakness. Patient also complains of discomfort of his right upper arm. Pain with range of motion there. - Related Data Home Medications Medication Instructions Recorded Confirmed LORazepam [Ativan] 0.5 mg PO TID PRN 03/29/18 06/14/19 Acyclovir [Zovirax] 800 mg PO BID@0800,199906/14/19 06/14/19 Esomeprazole Magnesium [NexIUM] 20 mg PO DAILY 06/14/19 06/14/19 Loperamide HCl [Imodium A-D] 2 mg PO Q4H PRN 06/14/19 06/14/19 Magnesium Oxide [Mag-Ox] 800 mg PO HS@219906/14/19 06/14/19 Ondansetron HCl [Zofran] 8 mg PO Q8H PRN 06/14/19 06/14/19 Pentamidine 300 mg INHALATION DIRECTED 06/14/19 06/14/19 Ruxolitinib Phosphate [Jakafi] 15 mg PO DAILY@79906/14/19 06/14/19 Sertraline [Zoloft] 50 mg PO HS@219906/14/19 06/14/19 Tacrolimus [Prograf] 2.5 mg PO BID@1000,219906/14/19 06/14/19 methylPREDNISolone [Medrol] 8 mg PO DAILY@0806/14/19 06/14/19 oxyCODONE HCL [OxyIR] 5 mg PO Q6H PRN 06/14/19 06/14/19 Previous Rx's Medication Instructions Recorded Cephalexin [Keflex] 500 mg PO Q6HR 5 Days #20 cap 06/14/19 Allergies Allergy/AdvReac Type Severity Reaction Status Date / Time Penicillins Allergy Dyspnea Verified 06/14/19 12:54 Review of Systems ROS Statement: Those systems with pertinent positive or pertinent negative responses have been documented in the HPI. ROS Other: All systems not noted in ROS Statement are negative. Constitutional: Denies: fever Eyes: Denies: eye pain ENT: Denies: ear pain Respiratory: Denies: cough Cardiovascular: Denies: chest pain Endocrine: Denies: fatigue Gastrointestinal: Denies: abdominal pain Genitourinary: Denies: dysuria Musculoskeletal: Denies: back pain Skin: Denies: rash Neurological: Denies: headache, weakness Past Medical History Past Medical History: Cancer Additional Past Medical History / Comment(s): IBS, skin cancer,leukemia pancreatitis History of Any Multi-Drug Resistant Organisms: None Reported Additional Past Surgical History / Comment(s): Skin cancer removal(nose), bone marrow biopsy and aspirate Past Anesthesia/Blood Transfusion Reactions: No Reported Reaction Past Psychological History: Anxiety Smoking Status: Never smoker Past Alcohol Use History: None Reported Past Drug Use History: None Reported - Past Family History Mother Family Medical History: Eye Disorder, Hypertension, Thyroid Disorder Additional Family Medical History / Comment(s): macular degeneration Father Additional Family Medical History / Comment(s): - black lung General Exam Limitations: no limitations General appearance: alert, in no apparent distress Head exam: Present: normocephalic, other (Right temporal lacerations) Eye exam: Present: normal appearance, PERRL, EOMI ENT exam: Present: normal oropharynx Neck exam: Present: normal inspection. Absent: tenderness Respiratory exam: Present: normal lung sounds bilaterally Cardiovascular Exam: Present: regular rate, normal rhythm GI/Abdominal exam: Present: soft. Absent: tenderness Extremities exam: Present: tenderness (Right upper humerus region. Pain with range of motion. Distally extremity are all neurovascularly intact..) Back exam: Present: normal inspection Neurological exam: Present: alert, oriented X3, CN II-XII intact. Absent: motor sensory deficit Psychiatric exam: Present: normal affect, normal mood Skin exam: Present: abrasion (Abrasion bilateral knees, right elbow, bilateral hands.), other (Laceration right temporal region) Course Vital Signs 06/14/19 12:24 Temperature 98.6 F Pulse Rate 71 Respiratory 18 Rate Blood Pressure 124/69 O2 Sat by Pulse 98 Oximetry Procedures - Laceration Laceration #1 Consent Obtained: verbal consent Indication: laceration Site: face (And right lower eyelid) Size (cm): 3 Description: flap, irregular Depth: simple, single layer Anesthetic Used: lidocaine 1% Anesthesia Technique: local infiltration Pre-repair: wound explored, irrigated extensively Type of Sutures: nylon Size of Sutures: 6-0 Number of Sutures: 9 Technique: simple, interrupted Patient Tolerated Procedure: well, no complications Medical Decision Making - Medical Decision Making Patient was placed on antibiotics only because of medication that he is taking, otherwise patient will not have been placed on antibiotics. - Radiology Data Radiology results: report reviewed (X-ray of the right humerus shows proximal humerus fracture) Disposition Clinical Impression: Fall, Proximal humerus fracture, Laceration of face Disposition: HOME SELF-CARE Instructions (If sedation given, give patient instructions): Laceration (ED), Head Injury (ED), Proximal Humerus Fracture (ED) Additional Instructions: Please follow-up with your primary care physician, oncologist, and orthopedics in the next day or 2 for recheck. Ice to affected area. Return for change in mental status, persistent vomiting, confusion, weakness, worsening or change in symptoms or other concerns. Wash laceration and abrasions with soap and water twice daily, apply antibiotic ointment, and keep bandaged. Prescriptions: Cephalexin [Keflex] 500 mg PO Q6HR 5 Days #20 cap Is patient prescribed a controlled substance at d/c from ED?: No Referrals: Nathan St MD [Primary Care Provider] - 1-2 days Orlin Cristobal MD [STAFF PHYSICIAN] - 1-2 days Time of Disposition: 14:03
--- NOTE | 2019-06-14 13:46 | XR ---
EXAMINATION TYPE: XR humerus RT DATE OF EXAM: 06/14/2019 COMPARISON: NONE HISTORY: 59-year-old male upper arm pain after fall this morning TECHNIQUE: 2 views FINDINGS: Moderate degenerative change at the AC joint. There is a comminuted fracture of the greater tuberosity. Fracture fragment displacement up to 1.3 cm . The glenoid humeral joint appears grossly intact. IMPRESSION: Comminuted, mildly displaced, two-part proximal humeral fracture involving the greater tuberosity. Di splacement measures up to 1.3 cm. Consider dedicated shoulder radiographs for better assessment.
[2019-06-14] MEDS ORDERED: ACET/COD 300 MG/30 MG STARTER PACK 6 TAB BTL PO STA (14:00)
== END 2019-06-14 14:30 | disposition home or self-care (01) ==
LOC: EC 12:17
DX: S42.251A Displaced fracture of greater tuberosity of right humerus, initial encounter for closed fracture (principal); S01.81XA Laceration without foreign body of other part of head, initial encounter; S80.212A Abrasion, left knee, initial encounter; S80.211A Abrasion, right knee, initial encounter; S50.311A Abrasion of right elbow, initial encounter; S60.512A Abrasion of left hand, initial encounter; S60.511A Abrasion of right hand, initial encounter; F41.9 Anxiety disorder, unspecified; Z79.899 Other long term (current) drug therapy; Z88.0 Allergy status to penicillin; Z85.828 Personal history of other malignant neoplasm of skin; W01.0XXA Fall on same level from slipping, tripping and stumbling without subsequent striking against object, initial encounter
CPT/HCPCS: 12013; 99283

== ENCOUNTER → 2019-06-22 | Outpatient (CLI) | payer BC ==
--- NOTE | 2019-06-22 13:38 | CT ---
EXAMINATION TYPE: CT shoulder RT wo con DATE OF EXAM: 06/22/2019 COMPARISON: X-ray 06/14/2019 HISTORY: Pain CT DLP: 478 mGycm Automated exposure control for dose reduction was used. FINDINGS: There is a comminuted displaced fracture involving the greater tuberosity humeral head with displacem ent of 2 1.3 cm. Joint space appears grossly intact. Soft tissue edema is noted. Scapula and rib cage intact. Hypertrophic and degenerative change of the vertebral column. IMPRESSION: COMMINUTED DISPLACED FRACTURE GREATER TUBEROSITY.
== END | disposition home or self-care (01) ==
LOC: RADCTMAIN 12:57
PROVIDERS: ATTEND Orthopaedic Surgery
DX: S42.251A Displaced fracture of greater tuberosity of right humerus, initial encounter for closed fracture (principal)

== ENCOUNTER → 2023-03-08 | Outpatient (CLI) | payer MEDICARE ==
--- NOTE | 2023-03-08 11:29 | XR ---
EXAMINATION TYPE: XR chest 2V DATE OF EXAM: 03/08/2023 COMPARISON: Chest x-ray February 15, 2018 HISTORY: Cough. TECHNIQUE: Frontal and lateral views of the chest are obtained. FINDINGS: There is is new nodular airspace opacity on frontal view left lung base adjacent to cardia c apex less well seen on lateral view. Right lung is clear. No pleural effusion or pneumothorax is s een bilaterally. The cardiac silhouette size is stable and within normal limits. The osseous struct ures are intact. IMPRESSION: Nodular left basilar opacity suspicious for acute infiltrate given patient's history of cough. Progress study after treatment is advised.
== END | disposition home or self-care (01) ==
LOC: RADXRMAIN 11:09
PROVIDERS: ATTEND Internal Medicine
DX: R91.8 Other nonspecific abnormal finding of lung field (principal); R42 Dizziness and giddiness; R06.02 Shortness of breath
CPT/HCPCS: 71046

== ENCOUNTER → 2024-05-30 | Outpatient (CLI) | payer MEDICARE ==
--- NOTE | 2024-05-30 22:13 | US ---
EXAMINATION TYPE: US liver DATE OF EXAM: 05/30/2024 COMPARISON: CT CLINICAL INDICATION: Male, 64 years old with history of R74.8 ELEVATED LIVER ENZYMES; Elevated LFT's TECHNIQUE: Multiple sonographic images of the right upper quadrant are obtained. FINDINGS: EXAM MEASUREMENTS: Liver Length: 19.5 cm Gallbladder Wall: 0.2 cm CBD: 0.5 cm Right Kidney: 11.1 x 4.1 x 4.2 cm HEALTH AND SAFETY TRAINER NOTES: Pancreas: wnl, tail obscured by overlying bowel gas Liver: Enlarged, heterogeneous, difficult to penetrate Gallbladder: Contracted with multiple gallstones Evidence for sonographic Mann's sign: No CBD: wnl Right Kidney: wnl IMPRESSION: 1. Cholelithiasis. No wall thickening or pericholecystic fluid. 2. Hepatomegaly with mild fatty infiltration liver
== END | disposition home or self-care (01) ==
LOC: RADUSWWP 06:49
PROVIDERS: ATTEND Internal Medicine
DX: K80.20 Calculus of gallbladder without cholecystitis without obstruction (principal); R74.8 Abnormal levels of other serum enzymes; K76.0 Fatty (change of) liver, not elsewhere classified; R16.0 Hepatomegaly, not elsewhere classified
CPT/HCPCS: 76705

== ENCOUNTER 2024-06-28 09:22 | Emergency (ER) | payer MEDICARE | END 2024-06-28 10:22 | disposition home or self-care (01) | LOC: EC 09:22 | DX: H10.9 Unspecified conjunctivitis (principal) | CPT/HCPCS: 99283 ==

== ENCOUNTER → 2024-08-15 | Outpatient (CLI) | payer MEDICARE ==
[2024-08-15 15:11] LABS: Basophils # (A) 0.03 X 10*3/uL (0.00-0.10); Basophils % (A) 0.8 %; Eosinophils # (A) 0.05 X 10*3/uL (0.04-0.35); Eosinophils % (A) 1.3 %; HGB 17.4 g/dL (13.0-17.0); Lymphocytes % (A) 31.2 %; MCH 32.2 pg (27.0-32.0); MCHC 34.1 g/dL (32.0-37.0); MCV 94.4 FL (80.0-97.0); Monocytes # (A) 0.27 X 10*3/uL (0.20-1.00); NRBC Per 100 WBC 0 X 10*3/uL (0.00-0.01); Neutrophils # (A) 2.29 X 10*3/uL (1.80-7.70); Neutrophils % (A) 59.4 %; Platelet Count 136 X 10*3/uL (140-440); RDW 13.2 % (11.5-14.5); WBC 3.85 X 10*3/uL (4.50-10.00)
[2024-08-15 15:22] LABS: ALT 47 U/L (10-49); AST 40 U/L (14-35); Albumin 4.6 g/dL (3.8-4.9); Albumin/Globulin Ratio 2.19 Ratio (1.60-3.17); Alkaline Phosphatase 143 U/L (41-126); BUN/Creat Ratio 16.22 Ratio (12.00-20.00); Blood Urea Nitrogen 14.6 mg/dL (9.0-27.0); Calcium 9.4 mg/dL (8.7-10.3); Carbon Dioxide 28.6 mmol/L (21.6-31.8); Chloride 105 mmol/L (96-109); Globulin 2.1 g/dL (1.6-3.3); Glucose 113 mg/dL (70-110); Potassium 4.7 mmol/L (3.5-5.5); Sodium 143 mmol/L (135-145); Total Protein 6.7 g/dL (6.2-8.2)
== END | disposition home or self-care (01) ==
LOC: LABWHC1 10:21
PROVIDERS: ATTEND Internal Medicine Gastroenterology
DX: R74.01 Elevation of levels of liver transaminase levels (principal)
CPT/HCPCS: 36415; 80053; 85025

== ENCOUNTER → 2024-10-04 | Outpatient (CLI) | payer MEDICARE ==
--- NOTE | 2024-10-04 08:45 | XR ---
EXAMINATION TYPE: XR cervical spine comp DATE OF EXAM: 10/04/2024 8:20 AM COMPARISON: None CLINICAL INDICATION: Male, 64 years old with history of M54.2 CERVICALGIA; PHH TECHNIQUE: The cervical spine was imaged in frontal, lateral, odontoid and bilateral oblique. FINDINGS: The osseous structures show normal alignment without evidence of an acute fracture. There are osteoph ytes noted throughout the cervical spine on the anterior and lateral aspects of the vertebral bodies. The intervertebral disk spaces are narrowed at multiple levels. Pedicles are intact. Soft tissues a re within normal limits. The odontoid appears intact. IMPRESSION: 1. No fracture or dislocation. 2. Mild to moderate degenerative disc disease changes of the cervical spine. [facility], , 10/04/2024 8:42 AM
--- NOTE | 2024-10-04 08:46 | XR ---
EXAMINATION TYPE: XR thoracic spine 2V DATE OF EXAM: 10/04/2024 8:20 AM COMPARISON: None. CLINICAL INDICATION: Male, 64 years old with history of M54.2 CERVICALGIA, TECHNIQUE: Frontal, lateral, and swimmer's view of thoracic spine are obtained. FINDINGS: Thoracic spine show satisfactory alignment without evidence of acute fracture or dislocatio n. Vertebral body heights are preserved. Mild multilevel degenerative disc space narrowing. Ventral spondylosis. Visualized ribs are unremarkable. IMPRESSION: No acute fracture or dislocation is seen in the thoracic spine. ICD 10 NO FRACTURE, INIT IAL EVALUATION [facility], , 10/04/2024 8:44 AM
--- NOTE | 2024-10-04 08:47 | XR ---
EXAMINATION TYPE: XR lumbar spine 2 or 3V DATE OF EXAM: 10/04/2024 8:20 AM COMPARISON: None. CLINICAL INDICATION: Male, 64 years old with history of M54.2 CERVICALGIA, TECHNIQUE: Frontal, lateral, of the lumbar spine are obtained. FINDINGS: There are 5 lumbar type vertebral bodies identified. The lumbar spine shows satisfactory alignment without evidence of acute fracture or dislocation. Vertebral body heights are within normal limits. Moderate degenerative disc space narrowing at L5-S1 with mild narrowing at the remaining lev els. Ventral spondylosis. Moderate facet joint arthropathy. The overlying soft tissue appears unrem arkable. IMPRESSION: No acute fracture or dislocation is seen in the lumbar spine.ICD 10 NO FRACTURE, INITIAL EVALUATION [facility], , 10/04/2024 8:45 AM
== END | disposition home or self-care (01) ==
LOC: RADXRMAIN 07:53
PROVIDERS: ATTEND Chiropractor
DX: M50.30 Other cervical disc degeneration, unspecified cervical region (principal)
CPT/HCPCS: 72050; 72070; 72100

== ENCOUNTER → 2024-10-11 | Outpatient (CLI) | payer MEDICARE ==
[2024-10-11 16:02] LABS: Basophils # (A) 0.02 X 10*3/uL (0.00-0.10); Basophils % (A) 0.5 %; Eosinophils # (A) 0.05 X 10*3/uL (0.04-0.35); Eosinophils % (A) 1.3 %; HCT 45.3 % (39.6-50.0); HGB 15.7 g/dL (13.0-17.0); Immature Grans, Automated 0 %; Lymphocytes # (A) 1.12 X 10*3/uL (0.90-5.00); Lymphocytes % (A) 28.6 %; MCH 31.8 pg (27.0-32.0); MCHC 34.7 g/dL (32.0-37.0); MCV 91.7 FL (80.0-97.0); Mean Platelet Volume 9.8 FL (9.5-12.2); Monocytes # (A) 0.27 X 10*3/uL (0.20-1.00); Monocytes % (A) 6.9 %; NRBC Per 100 WBC 0 X 10*3/uL (0.00-0.01); Neutrophils # (A) 2.46 X 10*3/uL (1.80-7.70); Neutrophils % (A) 62.7 %; Platelet Count 138 X 10*3/uL (140-440); RBC 4.94 X 10*6/uL (4.40-5.60); WBC 3.92 X 10*3/uL (4.50-10.00)
[2024-10-11 16:24] LABS: ALT 41 U/L (10-49); AST 34 U/L (14-35); Albumin 4.2 g/dL (3.8-4.9); Albumin/Globulin Ratio 2.33 Ratio (1.60-3.17); Alkaline Phosphatase 118 U/L (41-126); BUN/Creat Ratio 14.56 Ratio (12.00-20.00); Blood Urea Nitrogen 13.1 mg/dL (9.0-27.0); Calcium 8.8 mg/dL (8.7-10.3); Carbon Dioxide 27.8 mmol/L (21.6-31.8); Chloride 106 mmol/L (96-109); Globulin 1.8 g/dL (1.6-3.3); Glucose 99 mg/dL (70-110); Potassium 4.4 mmol/L (3.5-5.5); Sodium 143 mmol/L (135-145); Total Bilirubin 0.8 mg/dL (0.3-1.2)
== END | disposition home or self-care (01) ==
LOC: LABWHC1 10:29
PROVIDERS: ATTEND Nurse Practitioner Family
DX: R74.01 Elevation of levels of liver transaminase levels (principal)
CPT/HCPCS: 36415; 80053; 85025